=== PATIENT | male | born 1930 | race Caucasian/White ===

== ENCOUNTER 2016-04-10 07:56 | Inpatient (IN) | payer OTHER, MEDICARE ==
[2016-04-10] MEDS ORDERED: diphenhydrAMINE 25 MG CAP PO ONE ×2 (08:05→08:30)
[2016-04-10] MEDS ORDERED: DIAZEPAM 5 MG TAB PO ONE (08:05)
[2016-04-10] MEDS ORDERED: FAMOTIDINE 20 MG TAB PO ONE (08:05)
[2016-04-10] MEDS ORDERED: NS 1,000 ML IV ONE (08:05)
[2016-04-10] MEDS ORDERED: ASPIRIN EC 325 MG TAB PO ONE ×2 (08:05→08:30)
--- NOTE | 2016-04-10 08:28 | CPEKG ---
Heart Rate: 73 RR Interval: 822 P-R Interval: 200 QRSD Interval: 136 QT Interval: 420 QTC Interval: 463 P [place]: 112 QRS [place]: 116 T Wave Crawford: 244 EKG Severity - ABNORMAL ECG - EKG Impression: ATRIAL-SENSED VENTRICULAR-PACED RHYTHM Electronically Signed By: Arun Vazquez 11-Apr-2016 19:25:35
[2016-04-10] MEDS ORDERED: DIAZEPAM 5 MG TAB ONE (08:30)
[2016-04-10] MEDS ORDERED: FAMOTIDINE 20 MG TAB ONE (08:30)
[2016-04-10] MEDS ORDERED: CLOPIDOGREL BISULFATE 75 MG TAB ONE ×3 (08:31→11:52)
[2016-04-10 08:43] LABS: % IMMATURE GRANULYOCYTES 0.3 % (0.0-1.1); ABSOLUTE IMMATURE GRANULOCYTES 0.02 10^3/uL (0.00-0.10); ADD DIFF? NO; ADD MORPH? NO; ADD SCAN? NO; ATYPICAL LYMPHOCYTE FLAG 0 (0-99); FRAGMENT RBC FLAG 0 (0-99); HEMATOCRIT 46.8 % (40.0-51.0); HEMOGLOBIN 15.3 g/dL (13.7-17.5); LEFT SHIFT FLG 0 (0-99); LIPEMIA HEMOLYSIS FLAG 80 (0-99); MEAN CELL HEMOGLOBIN 28.4 pg (27.9-34.1); MEAN CELL HEMOGLOBIN CONCENTR. 32.7 g/dL (32.4-36.7); MEAN PLATELET VOLUME 11.6 fL (8.7-11.7); PLATELET CLUMPS FLAG 0 (0-99); PLATELET COUNT 203 10^3/uL (150-400); RED BLOOD CELL COUNT 5.38 10^6/uL (4.40-6.38); RED CELL DISTRIBUTION WIDTH 16.7 % (11.5-15.2)
[2016-04-10 08:53] LABS: INR 1.25 (0.83-1.16); PROTIME(PATIENT) 15.7 SEC (12.0-15.0)
[2016-04-10] MEDS ORDERED: IOPAMIDOL (ISOVUE-370) 150 ML BTL IV ONE ×2 (09:02→10:39)
[2016-04-10] MEDS ORDERED: HEPARIN 10,000 UNIT/10 ML MDV ONE ×2 (09:02→11:06)
[2016-04-10] MEDS ORDERED: VERAPAMIL 5 MG/2 ML VIAL ONE ×2 (09:02→10:39)
[2016-04-10] MEDS ORDERED: MIDAZOLAM 2 MG/2 ML VIAL ONE (09:02)
[2016-04-10] MEDS ORDERED: fentaNYL 100 MCG/2 ML INJ ONE (09:02)
[2016-04-10] MEDS ORDERED: LIDOCAINE 1% 30 ML SDV ONE (09:02)
[2016-04-10 09:15] LABS: ANION GAP 15 mEq/L (8-16); CALCIUM 9.3 mg/dL (8.5-10.4); CARBON DIOXIDE 25 mEq/l (22-31); CHLORIDE 102 mEq/L (97-110); CHOLESTEROL 126 mg/dL (140-220); CHOLESTEROL/HDL RATIO 3.82 RATIO (1.00-4.97); CREATININE 1.2 mg/dL (0.7-1.3); GLOMERULAR FILTRATION RATE 58; GLUCOSE 167 mg/dL (70-100); HIGH DENSITY LIPOPROTEIN 33 mg/dL (40-65); LDL/HDL RATIO 2.27 RATIO (1.00-3.64); LOW DENSITY LIPOPROTEIN 75 mg/dL (80-100); NON-HIGH DENSITY LIPOPROTEIN 93 mg/dL (90-129); POTASSIUM 4.1 mEq/L (3.5-5.2); SODIUM 142 mEq/L (134-144); TRIGLYCERIDE 94 mg/dL (40-150); VERY LOW DENSITY LIPOPROTEINS 18 mg/dL (8-25)
--- NOTE | 2016-04-10 09:44 | SUROPNOTE ---
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 Numerous medication adjustments and pacemaker reprogramming have been unsuccessful in alleviating symptoms. Echocardiogram 04/02/16 demonstrates new left ventricular dysfunction with LVEF 40-45% (previous 50-55%) and worsening pulmonary hypertension with estimated pulmonary artery pressure of 50-60mmHg (previous 30-40mmHg). Lexiscan nuclear stress test MPI shows a new small, moderate intensity inferolateral reversible defect. Right/left heart catheterization indicated secondary to [place] cardiovascular class III anginal equivalent and intermediate risk non- invasive testing. Procedures performed: 1. Right and Left heart catheterization with left ventricular and selective coronary angiography. 2. Fractional flow reserve, intravascular ultrasound imaging, and intracoronary stent placement x3 in the left anterior descending. Description of procedure: Description, risks, benefits and alternatives were discussed in detail. Informed consent was obtained. The patient was brought to the catheterization laboratory where a timeout was performed. The right arm was sterilely prepped and draped. 2% lidocaine utilized for local anesthetic. A 5-Welsh hemostatic sheath was placed in the right brachial artery utilizing the IV site already in place. A 5-Welsh PWP catheter was utilized for right heart catheterization. Following right heart catheterization, a 5/6-Welsh slender hemostatic sheath placed right radial artery utilizing micropuncture technique. Intraarterial verapamil and intravenous heparin was administered. Diagnostic coronary angiography performed with 6-Welsh, Leo left-3.5, AR1, and Leo right-4 catheter. The right coronary could not be engaged with the JR4 catheter, ultimately this was achieved with a 6-Welsh AR1 catheter. All catheters were passed over a 0.035 guidewire and J glidewire. Pigtail catheter was then utilized for left heart catheterization and left ventricular angiography. Query hemodynamically significant disease in the left anterior descending. Decision made to perform fractional flow reserve to assess hemodynamic significance. A 6-Welsh LBU-3.5 was utilized to engage the left coronary system. [facility] Nikhil FFR wire was advanced to just outside the guide catheter and pressures were equalized. FFR wire was placed in the left anterior descending. 140mcg*kg/min Adenosine IV was administered. FFR was 0.75. There are multiple sites of disease in the left anterior descending by angiography and it is unclear which of these (or multiple sites) are attributing to the hemodynamic significance. Therefore, intravascular ultrasound imaging will be utilized to further assess disease severity. Intracoronary nitroglycerin and verapamil was administered. Ultrasound catheter was placed in the left anterior descending and intravascular ultrasound imaging was performed. Plans were made for percutaneous intervention of the distal left anterior descending disease, which extends just distal to the previously stented segment. A 2.75mm x 28mm Synergy drug-eluding stent was chosen and carefully positioned to cover the distal vessel disease. This was deployed to 20 atmospheres for 30 seconds. Due to technical difficulty fractional flow reserve was unable to be repeated after this intervention. Instead, further intracoronary nitroglycerin and verapamil was administered and repeat intravascular ultrasound imaging was performed. Further plan was made for intervention on the mid and ostial left anterior descending disease. A 3.0mm x 28mm Synergy drug-eluding stent was chosen and carefully positioned in the mid left anterior descending. This was deployed to 18 atmospheres. Stent balloon was positioned slightly distally and inflated to 18 atmospheres. Next, a 3.5mm x 12mm Synergy drug-eluding stent was chosen and to cover the ostial left anterior descending lesion without extending the stent into the left main, however would not cross. FFR wire and guide catheter were removed. Instead, a 6-Welsh JL3.5 guide catheter was utilized and a Samurai wire was placed. The 3.5mm x 12mm Synergy drug-eluding stent was carefully positioned in the ostial left anterior descending and deployed to 14 atmospheres. Stent balloon was inflated to 18 atmospheres for 18 seconds. Repeat intravascular ultrasound imaging was performed, demonstrating excellent result. Ultrasound catheter and wire removed. Final orthogonal angiography was performed. Arterial sheath was removed and TR band was placed. Findings: 1. Hemodynamics: Right atrial pressure mean of 10. Right ventricular pressure 47/4/15 end-diastolic. Pulmonary artery pressure 48/23, mean of 33. Pulmonary capillary wedge pressure mean of 17 with no significant V wave. Aortic pressure 137/92, mean of 111, left ventricular pressure 150/15/26 end-diastolic. There was no significant pull back gradient across the aortic valve. 2. Saturations: Superior vena cava 80.8%, main pulmonary artery 71.9%, Ao 93.3 %. Assumed Renetta cardiac output 4.6 L/min with a cardiac index of 2.73 L/min/m2. 3. Left ventricle: The left ventricle appears normal in size. Left ventricle is normal shape. There is global hypokinesis and left ventricular dyssynchrony, suspect pacemaker mediated, with an ejection fraction of 30-35%. There are no filling defects or significant mitral regurgitation. The aortic root and ascending aorta appears normal, there is no dissection or aneurysm formation. 4. Coronary angiography: Left main: The left main is a large bifurcating vessel with mild calcified plaque. 5. Left anterior descending: This is a large vessel continuing around the apex. There is a large diagonal branch. Stents in the LAD and diagonal are patent with approximately 30% smooth in-stent stenosis. The ostial LAD has an eccentric 75% stenosis, confirmed by intravascular ultrasound. The mid-LAD contains a heavily calcified 70% lesion. The distal LAD has moderate to severe diffuse disease with a long area of 75-80% distal stenosis by ultrasound imaging. The diagonal branch has luminal irregularities but no flow limiting stenosis. Fractional flow reserve demonstrated hemodynamically significant LAD disease, with FFR of 0.75. Ultrasound imaging was performed after the FFR in order to better assess areas indicated for intervention. 6. Circumflex: The circumflex is large and dominant. The first obtuse marginal branch is vxvzgsot-wp-zsqgd and bifurcating; there is a small more anterior branch, which is subtotally occluded and a larger more lateral branch, which contains a previously placed stent. The stent in the first obtuse marginal branch is patent. Distal to the stent at the site of previous extensive dissection, there is evidence of persistent non-flow limiting dissection with potentially some distal vessel luminal narrowing from dissection or diffuse disease; however flow is normal. The second obtuse marginal branch is chronically totally occluded and fills from eieh-qy-nvbb collaterals. There is a large posterolateral and a moderate size posterior descending. The distal vessel has diffuse mild luminal irregularities involving the posterior descending. The main AV groove has mild luminal irregularities. 7. Right coronary: This is a moderate size non-dominant vessel. There is a large RV branch. The right coronary contains mild disease, but no flow-limiting stenosis. 8. Percutaneous intervention: Guided by intravascular ultrasound imaging and angiography, a total of three drug-eluding stents were placed in the ostial, mid , and distal left anterior descending. There was excellent result confirmed by repeat intravascular ultrasound imaging and angiography. Overall Impression: 1. Exxlldqy-th-khnwtz ostial, mid, and distal left anterior descending disease, which was hemodynamically significant by fraction flow reserve. This was treated with placement of three drug-eluding stents, with excellent result confirmed by intravascular ultrasound imaging. 2. Patent previously placed stent in the first obtuse marginal branch. 3. 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 4. Left ventricular dyssynchrony, suspicious for pacemaker mediated dyssynchrony, with reduced left ventricular systolic function, EF 30%. 5. Moderate pulmonary hypertension, with pulmonary artery systolic pressure of 48mmHg systolic. 6. BNP of 7040. 7. Class III systolic congestive heart failure. Plan: 1. Medical management of systolic congestive heart failure. Consider adding TIMUR /ARB and maximum heart failure management. If left ventricular systolic function and patient's symptoms do not improve, then consider upgrade to biventricular pacemaker to treat left ventricular dyssynchrony. 2. Aggressive risk modification and high dose statin therapy. 3. Close clinical follow up. Portions of this report were documented by a medical specialist. I have reviewed this report and agree with the documentation. Report scribed for Dr. Wellington Vallejo. Report scribed by Amie Mercedes.
[2016-04-10] MEDS ORDERED: ADENOSINE 90 MG/30 ML VIAL IV ONE (10:39)
[2016-04-10] MEDS ORDERED: NITROGLYCERIN 1,500 MCG/15 ML VIAL MISC ONE (10:39)
[2016-04-10] MEDS ORDERED: OXYCODONE/APAP 5/325 TAB PO PRN (12:33)
[2016-04-10] MEDS ORDERED: TEMAZEPAM 15 MG CAP PO PRN (12:33)
[2016-04-10] MEDS ORDERED: ATROPINE SULFATE 1 MG/10 ML SYR IVP PRN (12:33)
[2016-04-10] MEDS ORDERED: ONDANSETRON 4 MG/2 ML VIAL IVP PRN (12:33)
[2016-04-10] MEDS ORDERED: LORazepam 2 MG/ML INJ IVP PRN (12:33)
[2016-04-10] MEDS ORDERED: NITROGLYCERIN 0.4 MG BTL SL PRN (12:33)
[2016-04-10] MEDS ORDERED: HYDROCODONE/APAP 5/325 TAB PO PRN (12:33)
[2016-04-10] MEDS ORDERED: CLOPIDOGREL BISULFATE 75 MG TAB PO ONE (12:33)
--- NOTE | 2016-04-10 12:34 | CPEKG ---
Heart Rate: 66 RR Interval: 909 P-R Interval: 172 QRSD Interval: 150 QT Interval: 472 QTC Interval: 495 P [place]: 77 QRS [place]: 99 T Wave [place]: -65 EKG Severity - ABNORMAL ECG - EKG Impression: ATRIAL-SENSED VENTRICULAR-PACED COMPLEXES EKG Impression: PROBABLE LEFT ATRIAL ABNORMALITY EKG Impression: LEFT BUNDLE BRANCH BLOCK Electronically Signed By: Arun Vazquez 11-Apr-2016 19:25:30
[2016-04-10] MEDS ORDERED: D5W 1/2 NS 1,000 ML IV SCH (12:45)
[2016-04-10] MEDS ORDERED: 1/2 NS 1,000 ML IV SCH (13:30)
[2016-04-10] MEDS ORDERED: FUROSEMIDE 20 MG/2 ML VIAL IVP ONE (16:31)
[2016-04-10] MEDS ORDERED: NEBIVOLOL HCL 5 MG TAB PO ONE (17:00)
[2016-04-10] MEDS: LISINOPRIL 10 MG TAB PO SCH (18:58)
[2016-04-10] MEDS ORDERED: NON-FORMULARY NEW DRUG (Simvastatin [Zocor] 10 MG) PO SCH (21:00)
[2016-04-10] MEDS: PRAVASTATIN SODIUM 20 MG TAB PO SCH (21:16)
--- NOTE | 2016-04-10 21:19 | GCON ---
[f rep ] CONSULTATION [facility] MEDICINE CONSULTATION DATE OF CONSULTATION: 04/10/2016 HISTORY OF PRESENT ILLNESS: The patient is an 85-year-old gentleman with a history of coronary disea se with pacemaker placement and BPH, who underwent right and left heart catheterization with LAD sten t placement. In the CBC post-cath, he became agitated to get up, speaking in Greenlandic, trying to leav e, pulling at things. When I see him, it is a number of hours later and his behavior has largely resolved. In speaking wit h Praful Woodard, the PA for Dr. Vallejo, the patient has had difficulty with hospitalizations in the p ast. I suspect this is secondary to Benadryl and it probably reasonable to list this as a drug aller gy for him. When I speak with the patient, he says his right hand feels well. He has no chest pain. No shortnes s of breath. No fever, chills, nausea, vomiting, diarrhea. He does not drink alcohol. He does not smoke cigarettes. He lives independently with his who is present at the bedside who feels he is approaching his baseline. REVIEW OF SYSTEMS: A complete 10-point review of systems was conducted and negative, except as noted in the HPI. PAST MEDICAL HISTORY: 1. Pacemaker secondary to second-degree heart block. 2. Diabetes. 3. Coronary artery disease status post LAD stent today. 4. History of BPH. ALLERGIES: Previously listed as no known drug allergies. I would list Benadryl as an allergy for sondra corbin. MEDICATIONS: His home medications are aspirin, metformin, tamsulosin, spironolactone, simvastatin, n itroglycerin, multivitamin, furosemide, clopidogrel, and PreserVision. SOCIAL HISTORY: He is originally from [place]. He is retired. No tobacco, no alcohol. Lives with h is independently. FAMILY HISTORY: Parents . PHYSICAL EXAMINATION: VITAL SIGNS: His pulse was in the 60s, his blood pressure was 115/80, breathi ng 18 times a minute on a couple liters of oxygen. GENERAL: In no acute distress. HEENT: Sclerae are anicteric. Oropharynx is clear. Mucous membranes are moist. NECK: Supple without lymphadenopa thy or JVD. LUNGS: Clear to auscultation bilaterally. HEART: S1, S2. ABDOMEN: Soft, nontender, nondistended. EXTREMITIES: Lower extremities without edema. His right upper extremity has a pressu re dressing on it with no hematoma, although he had apparently had one after surgery. His fingers ar e cool, but with good cap refill. NEUROLOGIC: Exam is nonfocal. SKIN: Without rash. LABS: White count 7.3, hematocrit 47.8, platelets are 203,000. INR 1.25. D-dimer 1.21 (sent for unclear reasons). Sodium 142, potassium 4.1, chloride 102, bicarb 25, BUN 31, creatinine 1.2, glucose 167. Cholesterol 126, LDL 75. EKG interpreted by me post-cath shows a paced rhythm with a left bundle branch block pattern. No marleny dence of ischemia. I discussed the case with Praful Fontaine PA-C. ASSESSMENT AND PLAN: This is an 85-year-old gentleman with coronary disease status post catheterizat ion with post-catheterization delirium. 1. Delirium. This is almost certainly attributable to Benadryl. I would hold further. I have disc ontinued Ativan for which he is written. I think the patient will no longer become agitated, but dionna uld he become agitated, then the first line would be low doses of Haldol, such as 1 mg IV q.4. I have not written for this, but it can be called if this is necessary. I do not think this represents alc ohol withdrawal or intracranial hemorrhage, etc. No further workup at this time. 2. Coronary disease. He is on aspirin and Plavix. He underwent stent. 3. Diabetes. He is on metformin. I would recommend repeating a blood sugar in the morning. If carl vated, then we can start sliding scale. 4. Vascular access. As per Cardiology. DISPOSITION: Admitted to observation status I believe. Thank you for this consultation. [facility] will follow tomorrow. /[id number]/MODL
[2016-04-11 05:02] LABS: % IMMATURE GRANULYOCYTES 0.2 % (0.0-1.1); ABSOLUTE IMMATURE GRANULOCYTES 0.02 10^3/uL (0.00-0.10); ADD DIFF? NO; ADD MORPH? NO; ADD SCAN? NO; ATYPICAL LYMPHOCYTE FLAG 0 (0-99); FRAGMENT RBC FLAG 0 (0-99); HEMATOCRIT 42.7 % (40.0-51.0); HEMOGLOBIN 13.6 g/dL (13.7-17.5); LEFT SHIFT FLG 0 (0-99); LIPEMIA HEMOLYSIS FLAG 80 (0-99); MEAN CELL HEMOGLOBIN 28.3 pg (27.9-34.1); MEAN CELL HEMOGLOBIN CONCENTR. 31.9 g/dL (32.4-36.7); MEAN CELL VOLUME 88.8 fL (81.5-99.8); MEAN PLATELET VOLUME 11.6 fL (8.7-11.7); PLATELET CLUMPS FLAG 30 (0-99); PLATELET COUNT 168 10^3/uL (150-400); RED BLOOD CELL COUNT 4.81 10^6/uL (4.40-6.38); RED CELL DISTRIBUTION WIDTH 16.3 % (11.5-15.2)
[2016-04-11 05:16] LABS: ALBUMIN 3.3 g/dL (3.5-5.0); ANION GAP 11 mEq/L (8-16); ASPARTATE AMINOTRANSFERASE 31 IU/L (17-59); BILIRUBIN,TOTAL 1.3 mg/dL (0.1-1.4); CALCIUM 8.8 mg/dL (8.5-10.4); CARBON DIOXIDE 25 mEq/l (22-31); CHLORIDE 108 mEq/L (97-110); CREATININE 0.9 mg/dL (0.7-1.3); GLOMERULAR FILTRATION RATE > 60; GLUCOSE 116 mg/dL (70-100); LACTATE DEHYDROGENASE 499 IU/L (313-618); POTASSIUM 3.7 mEq/L (3.5-5.2); SODIUM 144 mEq/L (134-144)
--- NOTE | 2016-04-11 08:28 | CPEKG ---
Heart Rate: 93 RR Interval: 645 P-R Interval: 176 QRSD Interval: 136 QT Interval: 388 QTC Interval: 483 P [place]: 89 QRS [place]: 99 T Wave [place]: -90 EKG Severity - ABNORMAL ECG - EKG Impression: ATRIAL-SENSED ATRIAL PACED AND VENTRICULAR-PACED COMPLEXES EKG Impression: PROBABLE LEFT ATRIAL ABNORMALITY EKG Impression: BORDERLINE ST DEPRESSION, LATERAL LEADS Electronically Signed By: Arun Vazquez 11-Apr-2016 19:25:21
[2016-04-11] MEDS ORDERED: ASPIRIN EC 325 MG TAB PO SCH (09:00)
[2016-04-11] MEDS ORDERED: CLOPIDOGREL BISULFATE 75 MG TAB PO SCH (09:00)
[2016-04-11] MEDS ORDERED: FUROSEMIDE 20 MG TAB PO SCH (09:00)
--- NOTE | 2016-04-11 09:20 | SOAPPROG ---
ALLAN Progress Note Assessment/Plan: Assessment: Cardiology ([place]) 1. CAD s/p DESx3 in ostial, mid, and distal LAD this hospitalization. On DAPT with aspirin and Plavix. Received DESx1 in dominant Cx OM1 c/b stent edge dissection in December 2015, this vessel has normal flow. OM2 is chronically occluded and fills via L-L collaterals. Remote BMSs in LAD and diag patent. 2. New LV dysfunction w/ dysynchrony since last visit (acute systolic CHF, class III), LVEF 30-35% by LVgram, 40-45% by echocardiogram. ACEi added in addition to Bystolic and diuretic regimen. Suspicion for pacer-mediated cardiomyopathy. 3. Sick sinus syndrome with dual chamber PPM in place. Mostly a-v dual paced w/ rates in the 90s. 4. Post-procedural delirium thought to be 2/2 benadryl. Hospitalists are following. 5. New moderate pulmonary HTN. 6. Hypertension. 7. Hyperlipidemia. Plan: 1. Continue to watch throughout the day for improvement in mentation, ability to take medications. 2. Pacemaker interrogation today-->CLS gain turned to low. Atrial pacing rates are not reduced into the 70s-80 bpm. 3. Continue DAPT with aspirin and Plavix. Addendum 1648: Patient will remain inpatient due to mentation not yet back to baseline. He has been able to take all his medications but his oral intake continues to be poor. Will start normal saline IV at 75 ml/min overnight with continued diuresis. Subjective: A+O x 1. Unaware of place or time. Marginally conversational but continues to be quite sedated. Per hospitalist consult this did appear to improve briefly last night but then has gotten worse today. He was give restoril for sleep. Otherwise hemodynamically stable. Right wrist with mild-moderate hematoma. Not eating or drinking normally at this time. is in the room to aid with Wallisian interpretation. Objective: Vital Signs Temp Pulse Resp BP Pulse Ox 37 C 81 17 144/75 H 94 04/11/16 08:00 04/11/16 08:00 04/11/16 08:00 04/11/16 08:00 04/11/16 08:00 Laboratory Results 04/11/16 04:40 04/11/16 04:40 04/10/16 04/11/16 04/12/16 05:59 05:59 05:59 Intake Total 2450 Output Total 1060 Balance 1390 PT 15.7 SEC (12.0-15.0) H 04/10/16 08:30 INR 1.25 (0.83-1.16) H 04/10/16 08:30 Physical Exam - Physical Exam General Appearance: WD/WN, no apparent distress, obtunded Respiratory: chest non-tender, lungs clear, normal breath sounds Cardiac/Chest: normal peripheral pulses, regular rate, rhythm, No edema, No systolic murmur Peripheral Pulses: 2+: dorsalis-pedis (R), dorsalis-pedis (L) Abdomen: normal bowel sounds, non-tender, soft Neuro/Psych: abnormal director independent II-XII, motor weakness, cognition abnormalities, disoriented to place, disoriented to time, other (no focal deficit), No oriented x 3 ICD10 Worksheet Patient Problems: Problems Problem Status Diagnosed Coronary artery disease Acute Essential (primary) hypertension Acute Hyperlipidemia Acute Pacemaker Acute S/P coronary artery stent placement Acute
[2016-04-11] MEDS: SPIRONOLACTONE 25 MG TAB PO SCH (09:37)
[2016-04-11] MEDS: CLOPIDOGREL BISULFATE 75 MG TAB PO SCH (09:37)
[2016-04-11] MEDS: TAMSULOSIN HCL 0.4 MG CAP PO SCH (09:37)
[2016-04-11] MEDS: LISINOPRIL 10 MG TAB PO SCH (09:37)
[2016-04-11] MEDS: NEBIVOLOL HCL 5 MG TAB PO SCH (09:37)
--- NOTE | 2016-04-11 16:52 | HOSPPROG ---
Hospitalist Progress Note Assessment/Plan: # acute delirium- post PCI- clinically much improved at this afternoon- WBC count normal - agree hold sedating medications including Restoril - continue supportive care # coronary artery disease- status post PCI- oxygen saturations 98% on room air telemetry( personally reviewed and interpreted) paced rhythm - management per Cardiology # prophylaxis- Lovenox when cleared by Cardiology # diet cardiac # disposition I expect in the next 24 hours if remains stable I have discussed the case with the RN- patient is much improved this afternoon oriented interacting and eating normally Subjective: improved appetite Objective: Vital Signs Temp Pulse Resp BP Pulse Ox 36.4 C 73 24 H 132/84 H 94 04/11/16 13:56 04/11/16 13:56 04/11/16 13:56 04/11/16 13:56 04/11/16 13:56 Laboratory Results 04/11/16 04:40 04/11/16 04:40 04/10/16 04/11/16 04/12/16 05:59 05:59 05:59 Intake Total 2450 Output Total 1060 Balance 1390 PT 15.7 SEC (12.0-15.0) H 04/10/16 08:30 INR 1.25 (0.83-1.16) H 04/10/16 08:30 - Physical Exam Constitutional: appears nourished Eyes: anicteric sclera Ears, Nose, Mouth, Throat: moist mucous membranes Cardiovascular: regular rate and rhythym, systolic murmur Respiratory: no respiratory distress, no rales or rhonchi Gastrointestinal: normoactive bowel sounds, soft, non-tender abdomen Genitourinary: no bladder fullness Skin: warm, normal color Musculoskeletal: No asymmetric calves Neurologic: AAOx3, No facial droop Psychiatric: No agitated Lymph, Heme, Immunologic: no cervical LAD ICD10 Worksheet Patient Problems: Problems Problem Status Diagnosed Coronary artery disease Acute Essential (primary) hypertension Acute Hyperlipidemia Acute Pacemaker Acute S/P coronary artery stent placement Acute
[2016-04-11] MEDS ORDERED: NS 1,000 ML IV SCH (17:00)
[2016-04-11] MEDS: PRAVASTATIN SODIUM 20 MG TAB PO SCH (20:27)
[2016-04-12 08:28] LABS: % IMMATURE GRANULYOCYTES 0.3 % (0.0-1.1); ABSOLUTE IMMATURE GRANULOCYTES 0.02 10^3/uL (0.00-0.10); ADD DIFF? NO; ADD MORPH? NO; ADD SCAN? NO; ATYPICAL LYMPHOCYTE FLAG 0 (0-99); FRAGMENT RBC FLAG 0 (0-99); HEMATOCRIT 38.5 % (40.0-51.0); HEMOGLOBIN 12.8 g/dL (13.7-17.5); LEFT SHIFT FLG 0 (0-99); LIPEMIA HEMOLYSIS FLAG 80 (0-99); MEAN CELL HEMOGLOBIN 29.2 pg (27.9-34.1); MEAN CELL HEMOGLOBIN CONCENTR. 33.2 g/dL (32.4-36.7); MEAN CELL VOLUME 87.7 fL (81.5-99.8); MEAN PLATELET VOLUME 10.9 fL (8.7-11.7); PLATELET CLUMPS FLAG 0 (0-99); PLATELET COUNT 152 10^3/uL (150-400); RED BLOOD CELL COUNT 4.39 10^6/uL (4.40-6.38); RED CELL DISTRIBUTION WIDTH 16.2 % (11.5-15.2)
[2016-04-12 08:49] LABS: ANION GAP 9 mEq/L (8-16); CALCIUM 8.4 mg/dL (8.5-10.4); CARBON DIOXIDE 23 mEq/l (22-31); CHLORIDE 112 mEq/L (97-110); CREATININE 0.9 mg/dL (0.7-1.3); GLOMERULAR FILTRATION RATE > 60; GLUCOSE 103 mg/dL (70-100); POTASSIUM 3.8 mEq/L (3.5-5.2); SODIUM 144 mEq/L (134-144)
[2016-04-12] MEDS: LISINOPRIL 10 MG TAB PO SCH (09:17)
[2016-04-12] MEDS: SPIRONOLACTONE 25 MG TAB PO SCH (09:18)
[2016-04-12] MEDS: CLOPIDOGREL BISULFATE 75 MG TAB PO SCH (09:19)
[2016-04-12] MEDS: FUROSEMIDE 20 MG TAB PO SCH (09:19)
[2016-04-12] MEDS: TAMSULOSIN HCL 0.4 MG CAP PO SCH (09:19)
--- NOTE | 2016-04-12 10:20 | SOAPPROG ---
ALLAN Progress Note Assessment/Plan: Assessment: Cardiology ([place]) 1. CAD s/p DESx3 in ostial, mid, and distal LAD this hospitalization. On DAPT with aspirin and Plavix. Received DESx1 in dominant Cx OM1 c/b stent edge dissection in December 2015, this vessel has normal flow. OM2 is chronically occluded and fills via L-L collaterals. Remote BMSs in LAD and diag patent. 2. New LV dysfunction w/ dysynchrony since last visit (acute systolic CHF, class III), LVEF 30-35% by LVgram, 40-45% by echocardiogram. ACEi added in addition to Bystolic and diuretic regimen. Suspicion for pacer-mediated cardiomyopathy. 3. Sick sinus syndrome with dual chamber PPM in place. Mostly a-v dual paced w/ rates in the 90s. 4. Post-procedural delirium thought to be 2/2 benadryl. Hospitalists are following. 5. New moderate pulmonary HTN. 6. Hypertension. 7. Hyperlipidemia. Plan: 1. Continue to watch throughout the day for improvement in mentation, ability to take medications. 2. Pacemaker interrogation today-->CLS gain turned to low. Atrial pacing rates are not reduced into the 70s-80 bpm. 3. Continue DAPT with aspirin and Plavix. Addendum 1648: Patient will remain inpatient due to mentation not yet back to baseline. He has been able to take all his medications but his oral intake continues to be poor. Will start normal saline IV at 75 ml/min overnight with continued diuresis. 04/12/16 10:21 Patient appears to be oriented and cooperative today. He wants to leave the hospital. His is concerned over her ability to care for him he is able to ambulate with a walker. Patient is stable from cardiovascular standpoint and may be able to be discharged if it is deemed he is safe to go home. Otherwise, PT and social work may be required. Objective: Vital Signs Temp Pulse Resp BP Pulse Ox 97.3 F 76 14 115/69 96 04/12/16 08:21 04/12/16 08:21 04/12/16 08:21 04/12/16 08:21 04/12/16 08:21 Laboratory Results 04/12/16 08:19 04/12/16 08:19 04/11/16 04/12/16 04/13/16 05:59 05:59 05:59 Intake Total 2450 1050 Output Total 1060 300 Balance 1390 750 PT 15.7 SEC (12.0-15.0) H 04/10/16 08:30 INR 1.25 (0.83-1.16) H 04/10/16 08:30 ICD10 Worksheet Patient Problems: Problems Problem Status Diagnosed Coronary artery disease Acute Essential (primary) hypertension Acute Hyperlipidemia Acute Pacemaker Acute S/P coronary artery stent placement Acute
--- NOTE | 2016-04-12 12:47 | HOSPPROG ---
Hospitalist Progress Note Assessment/Plan: 85 yo M w cad admitted for LAD stents; hosp course c/b delirium acute delirium- post PCI- clinically much improved at this afternoon- WBC count normal - agree hold sedating medications including Restoril - continue supportive care morris: dc coronary artery disease- status post PCI- oxygen saturations 98% on room air telemetry( personally reviewed and interpreted) paced rhythm - management per Cardiology prophylaxis- Lovenox when cleared by Cardiology diet cardiac disposition inpatient per PT, borderline for home- await their repeat eval today Subjective: anxious for dc. case d/w dr porter. no events tele (interp by me) Objective: Vital Signs Temp Pulse Resp BP Pulse Ox 35.8 C L 85 20 120/72 94 04/12/16 11:52 04/12/16 11:52 04/12/16 11:52 04/12/16 11:52 04/12/16 11:52 Laboratory Results 04/12/16 08:19 04/12/16 08:19 04/11/16 04/12/16 04/13/16 05:59 05:59 05:59 Intake Total 2450 1050 Output Total 1060 300 Balance 1390 750 PT 15.7 SEC (12.0-15.0) H 04/10/16 08:30 INR 1.25 (0.83-1.16) H 04/10/16 08:30 - Physical Exam Constitutional: no apparent distress, appears nourished Eyes: PERRL, anicteric sclera Ears, Nose, Mouth, Throat: moist mucous membranes, hearing normal Cardiovascular: regular rate and rhythym, no murmur, rub, or gallop, No systolic murmur Respiratory: no respiratory distress, no rales or rhonchi, clear to auscultation Gastrointestinal: normoactive bowel sounds, soft, non-tender abdomen Genitourinary: no bladder fullness, morris in urethra Skin: warm, normal color Musculoskeletal: full muscle strength Neurologic: AAOx3 ICD10 Worksheet Patient Problems: Problems Problem Status Diagnosed Coronary artery disease Acute Essential (primary) hypertension Acute Hyperlipidemia Acute Pacemaker Acute S/P coronary artery stent placement Acute
[2016-04-12] MEDS: NEBIVOLOL HCL 5 MG TAB PO SCH ×2 (14:05→21:42)
[2016-04-12] MEDS: PRAVASTATIN SODIUM 20 MG TAB PO SCH (21:42)
--- NOTE | 2016-04-13 09:22 | HOSPPROG ---
Hospitalist Progress Note Assessment/Plan: 85 yo M w cad admitted for LAD stents; hosp course c/b delirium acute delirium- post PCI- clinically much improved at this afternoon- WBC count normal - agree hold sedating medications including Restoril - continue supportive care this has continued to improved, approaching baseline hypoxia: check ambulatory RA david ramosey: tyler coronary artery disease- status post PCI- oxygen saturations 98% on room air telemetry( personally reviewed and interpreted) paced rhythm - management per Cardiology prophylaxis- Lovenox when cleared by Cardiology diet cardiac disposition inpatient per PT, borderline for home- await their repeat eval today Subjective: more clear this AM. tele: no events (interp by me). case d/w dr porter Objective: Vital Signs Temp Pulse Resp BP Pulse Ox 36.4 C 77 16 144/106 H 98 04/13/16 08:00 04/13/16 08:00 04/13/16 08:00 04/13/16 08:00 04/13/16 08:00 Laboratory Results 04/12/16 08:19 04/12/16 08:19 04/12/16 04/13/16 04/14/16 05:59 05:59 05:59 Intake Total 1050 1135 Output Total 300 150 Balance 750 985 PT 15.7 SEC (12.0-15.0) H 04/10/16 08:30 INR 1.25 (0.83-1.16) H 04/10/16 08:30 - Physical Exam Constitutional: no apparent distress, appears nourished Eyes: PERRL, anicteric sclera Ears, Nose, Mouth, Throat: moist mucous membranes, hearing normal Cardiovascular: regular rate and rhythym, no murmur, rub, or gallop, No systolic murmur Respiratory: no respiratory distress, no rales or rhonchi, clear to auscultation Gastrointestinal: normoactive bowel sounds, soft, non-tender abdomen Genitourinary: No morris in urethra Skin: warm, normal color Musculoskeletal: full muscle strength, no muscle tenderness Neurologic: AAOx3 Psychiatric: interacting appropriately, not anxious Lymph, Heme, Immunologic: no cervical LAD ICD10 Worksheet Patient Problems: Problems Problem Status Diagnosed Coronary artery disease Acute Essential (primary) hypertension Acute Hyperlipidemia Acute Pacemaker Acute S/P coronary artery stent placement Acute
[2016-04-13] MEDS: LISINOPRIL 10 MG TAB PO SCH (09:28)
[2016-04-13] MEDS: FUROSEMIDE 20 MG TAB PO SCH (09:29)
[2016-04-13] MEDS: TAMSULOSIN HCL 0.4 MG CAP PO SCH (09:29)
[2016-04-13] MEDS: CLOPIDOGREL BISULFATE 75 MG TAB PO SCH (09:29)
[2016-04-13] MEDS: SPIRONOLACTONE 25 MG TAB PO SCH (09:29)
[2016-04-13] MEDS: NEBIVOLOL HCL 5 MG TAB PO SCH (19:52)
[2016-04-13] MEDS: PRAVASTATIN SODIUM 20 MG TAB PO SCH (19:52)
[2016-04-14 08:11] VITALS: TEMP 97.6; O2SAT 93
[2016-04-14] MEDS: FUROSEMIDE 20 MG TAB PO SCH (08:55)
[2016-04-14] MEDS: LISINOPRIL 10 MG TAB PO SCH (08:55)
[2016-04-14] MEDS: SPIRONOLACTONE 25 MG TAB PO SCH (08:55)
[2016-04-14] MEDS: TAMSULOSIN HCL 0.4 MG CAP PO SCH (08:56)
[2016-04-14] MEDS: CLOPIDOGREL BISULFATE 75 MG TAB PO SCH (08:56)
[2016-04-14 11:33] VITALS: BP 165/93; PULSE 88; RESP 18
[2016-04-14] MEDS ORDERED: ASPIRIN EC 81 MG TAB PO SCH (13:00)
--- NOTE | 2016-04-14 13:08 | HOSPPROG ---
Hospitalist Progress Note Assessment/Plan: 85 yo M w cad admitted for LAD stents; hosp course c/b delirium acute delirium- resolved hypoxia: check ambulatory RA david morris: tyler coronary artery disease- status post PCI- oxygen saturations 98% on room air telemetry( personally reviewed and interpreted) paced rhythm - management per Cardiology on asa/plavix prophylaxis- Lovenox when cleared by Cardiology diet cardiac disposition inpatient to snf Subjective: has bed at [facility] Objective: Vital Signs Temp Pulse Resp BP Pulse Ox 36.4 C 88 18 165/93 H 93 04/14/16 08:00 04/14/16 11:25 04/14/16 11:25 04/14/16 11:25 04/14/16 11:25 Laboratory Results 04/12/16 08:19 04/12/16 08:19 04/13/16 04/14/16 04/15/16 05:59 05:59 05:59 Intake Total 1135 800 Output Total 150 Balance 985 800 PT 15.7 SEC (12.0-15.0) H 04/10/16 08:30 INR 1.25 (0.83-1.16) H 04/10/16 08:30 - Physical Exam Constitutional: no apparent distress, appears nourished Eyes: PERRL, EOMI Ears, Nose, Mouth, Throat: moist mucous membranes, hearing normal Cardiovascular: regular rate and rhythym, no murmur, rub, or gallop Respiratory: no respiratory distress, no rales or rhonchi Gastrointestinal: normoactive bowel sounds, soft, non-tender abdomen Genitourinary: No morris in urethra Skin: warm, normal color ICD10 Worksheet Patient Problems: Problems Problem Status Diagnosed Coronary artery disease Acute Essential (primary) hypertension Acute Hyperlipidemia Acute Pacemaker Acute S/P coronary artery stent placement Acute
--- NOTE | 2016-04-14 13:14 | PDIAF ---
- Diagnosis Diagnosis: CAD,CHF, encephalopathy-improved,unsteady gait Code Status: Full Code - Medication Management Discharge Medications: Medications to Continue on Transfer Furosemide [Lasix 20 MG (*)] 20 mg PO DAILY 01/10/16 [Last Taken 04/09/16 08:00] Multivitamins [Multivitamin (*)] 1 each PO DAILY 01/10/16 [Last Taken 04/08/16 08:00] Simvastatin [Zocor] 10 mg PO HS 01/10/16 [Last Taken 04/09/16 21:00] Spironolactone [Aldactone 25 MG (*)] 25 mg PO DAILY 01/10/16 [Last Taken 08:00] Tamsulosin HCl [Flomax 0.4 MG (*)] 0.4 mg PO DAILY 01/10/16 [Last Taken 21:00] metFORMIN HCL [Glucophage 500 mg (*)] 250 mg PO BIDMEAL 01/10/16 [Last Taken 19:00] Nitroglycerin [Nitrostat 0.4 mg (*)] 0.4 mg SL ONCE PRN #0 btl 01/11/16 [Last Taken Unknown] Clopidogrel Bisulfate [Plavix (*)] 75 mg PO DAILY #30 tab 01/12/16 [Last Taken 04/09/16 19:00] Aspirin EC [Aspirin EC 325 mg (*)] 162 mg PO DAILY 04/10/16 [Last Taken 19:00] Nebivolol HCl [Bystolic 5 mg (*)] 2.5 mg PO DAILY 04/10/16 [Last Taken 04/09/16 21:00] Clopidogrel Bisulfate [Plavix (*)] 75 mg PO DAILY #0 tab 04/14/16 [Last Taken Unknown] Furosemide [Lasix 20 MG (*)] 60 mg PO DAILY #0 tab 04/14/16 [Last Taken Unknown] Lisinopril [Zestril 10 mg (*)] 10 mg PO DAILY #0 tab 04/14/16 [Last Taken Unknown] Nebivolol HCl [Bystolic 5 mg (*)] 2.5 mg PO HS #0 tab 04/14/16 [Last Taken Unknown] Spironolactone [Aldactone 25 MG (*)] 25 mg PO DAILY #0 tab 04/14/16 [Last Taken Unknown] Tamsulosin HCl [Flomax 0.4 MG (*)] 0.4 mg PO DAILY #0 cap 04/14/16 [Last Taken Unknown] Discharge Medications: Refer to the Discharge Home Medication list for PRN reason. PICC Care - Routine: N/A - Orders Services needed: Registered Nurse, Physical Therapy, Occupational Therapy Diet Recommendation: cardiac -low fat low salt Diet Texture: Regular Texture Diet, Thin Liquids Activity/Weight Bearing Restrictions: Walker - Follow Up Care Current Providers and Referrals: MELISSA COELHO [Primary Care Provider] - Wellington Vallejo MD [Medical Doctor] - 3-5 days (Have pt f/u with Keith TIJERINA in my office next week. )
--- NOTE | 2016-04-14 14:31 | GDS ---
[f rep st] DISCHARGE SUMMARY DIAGNOSES: 1. Progressive angina. 2. Congestive heart failure. 3. Cardiomyopathy. 4. History of high-degree atrioventricular block with pacemaker dependence. 5. Coronary artery disease. 6. Acute encephalopathy/delirium. 7. Unsteady gait. 8. Diabetes. 9. Benign prostatic hypertrophy. 10. Failure to thrive. PROCEDURES: 1. Right and left heart catheterization with left ventricular and selective coronary angiography. 2. Fractional flow reserve measurement, intravascular ultrasound imaging and intracoronary stent jose cement x3 in left anterior descending coronary artery. CONSULTANTS: Drs. Jose Zamorano and Polly Turner from the hospitalist service. HOSPITAL COURSE: This 85-year-old man with above problems [facility] He had presented in December with symptomatic coronary ischemia and underwent catheterization and intervention at that time. He had a stent edge dissection in his obtuse marginal stent treated w ith balloon angioplasty with restored flow and only very minimal rise in cardiac enzymes. He also wa s found to have a chronic occlusion of the more distal obtuse marginal branch, as well as diffuse oth er coronary disease. Unfortunately, despite very close outpatient followup and multiple changes in h is treatment, including pacemaker reprogramming and medication adjustment, patient continued to have progressive symptoms of worsening dyspnea and angina. Therefore, after discussing options, it was de cided that he would undergo repeat catheterization. This was performed on the day of admission. Thi s revealed that the 1st obtuse marginal stent was open. There was what appeared to be a healing dist al dissection with some non-flow limiting dissection with NATALY-3 flow. HEMODYNAMICS: Demonstrated a pulmonary artery systolic pressure of 48 mmHg with a mean pulmonary cap illary wedge pressure of 17 and right atrial pressure of 10. Cardiac index was 2.7 L/min per m2. T he left ventricle, surprisingly, demonstrated global hypokinesis with dyssynchrony as well, likely re lated to his pacemaker with an ejection fraction diminished from previous, now in the 30-35% range. There appeared to be progressive LAD disease on this angiogram of unclear significance. Therefore, f ractional flow reserve measurement was performed with intravenous adenosine demonstrating an FFR of 0 .75, suggesting hemodynamic significance. As the patient did have multiple lesions within the LAD, u ltrasound imaging was performed in order to decide on best areas of intervention. Ultimately, 3 sepa rate drug-eluting stents were placed in the LAD including a 2.75 mm x 28 mm Synergy stent in the dist al vessel. At this point, I was hoping to repeat fractional flow reserve measurement to determine wh ether further stenting was needed; however, there were multiple technical difficulties with the FFR a nd we were unable to adequately repeat assessment with FFR. Therefore, guidance at this point was pe rformed utilizing ultrasound imaging, as well as consultation with other cardiologists. The mid lesi on was covered with a 3.0 x 28 mm Synergy stent in the ostial/proximal lesion with a 3.5 x 12 mm Syne rgy stent. This led to excellent result throughout by ultrasound imaging. There were no complications specifically related to the catheterization procedure intervention; howev er, as had occurred previously, the patient developed acute delirium/encephalopathy, likely related t o the sedation and required ICU admission for recovery. This took at least 48 hours to nearly comple tely clear. Subsequently, patient was assessed by Physical Therapy who felt that he was unsafe for a mbulation at home, and after a great deal of discussion with the patient and his , the patient co nsented to a short course in the halfway facility. Therefore, on the day of discharge, he wa s discharged to [facility] for rehabilitation with physical, occupational therapy, and nursing care. Another finding was the degree of ventricular pacing at a high rate. His pacemaker was again reprogr ammed in an attempt to deal with this. Of note, the patient has had a steadily climbing brain natriu retic peptide from normal in 2010, then 1900 in March of 2014, with a steady climb to 53,000 in Jan, and 7000 approximately 2 weeks ago. DISCHARGE MEDICATIONS: Aspirin 162 mg daily, Plavix 75 mg daily, simvastatin 10 mg q.h.s., Bystolic 5 mg daily, lisinopril which is a new medicine; 10 mg daily, spironolactone 25 mg daily, furosemide 6 0 mg daily, tamsulosin 0.4 mg daily, metformin 250 mg b.i.d. FOLLOWUP PLANS: The patient should be seen in the office, hopefully within 1 week to 10 days. At th at point, chem-7, BNP testing should be performed. We should follow his ventricular function by echo cardiography. Depending on his recovery, he could be considered a candidate for upgrade of his pacem antonio to a biventricular device. If he continues to feel so poorly with heart failure, I certainly wo uld be willing to consider this, if that is what the patient and his family request. If we do this, I would like to perform this with general anesthesia/propofol in an attempt to limit postoperative de lirium/encephalopathy. /[id number]/MODL
== END 2016-04-14 14:44 | DRG 247 ==
LOC: FCATH 07:56 → F2W 11:54 → F2N 15:03 → F2W 04-11 13:54 → OBSVTOIN 04-11 16:48
PROVIDERS: ADMIT Internal Medicine Interventional Cardiology; ATTEND Internal Medicine Interventional Cardiology
PROC: 4A023N8 Measurement of Cardiac Sampling and Pressure, Bilateral, Percutaneous Approach (ICD-10-PCS; principal; 2016-04-10)
PROC: B2161ZZ Fluoroscopy of Right and Left Heart using Low Osmolar Contrast (ICD-10-PCS; principal; 2016-04-10)
PROC: B2111ZZ Fluoroscopy of Multiple Coronary Arteries using Low Osmolar Contrast (ICD-10-PCS; principal; 2016-04-10)
PROC: 027036Z Dilation of Coronary Artery, One Artery with Three Drug-eluting Intraluminal Devices, Percutaneous Approach (ICD-10-PCS; principal; 2016-04-10)
DX: I25.10 Atherosclerotic heart disease of native coronary artery without angina pectoris (principal); F05 Delirium due to known physiological condition; I50.20 Unspecified systolic (congestive) heart failure; I42.9 Cardiomyopathy, unspecified; I27.2 Other secondary pulmonary hypertension; E11.9 Type 2 diabetes mellitus without complications; N40.0 Benign prostatic hyperplasia without lower urinary tract symptoms; R26.9 Unspecified abnormalities of gait and mobility; R62.7 Adult failure to thrive; Z95.0 Presence of cardiac pacemaker
CPT/HCPCS: 97116-GP; 97161-GP; 97530-GP; C1753; C1769; C1874; C1887; C9600; G8978-GP-CK; G8979-GP-CI; G8980-GP-CJ; J0153; J1644; J2250; J3010; Q9967

== ENCOUNTER 2016-05-12 16:05 | Observation (INO) | payer OTHER, MEDICARE ==
--- NOTE | 2016-05-12 16:22 | EDPHY ---
H & P Time Seen by Provider: 05/12/16 16:09 HPI/ROS: CHIEF COMPLAINT: Altered mental status HISTORY OF PRESENT ILLNESS: The patient is an 85-year-old male who who presents emergency department via EMS. The patient is Prydeinig-speaking only. My initial interaction with the patient was limited. EMS states that the patient recently was in the hospital for a heart attack. His was concerned he had increasing mental status changes today. Through the Prydeinig strawhat inspector and packer the patient has no complaints. REVIEW OF SYSTEMS: My complete review of systems is negative except as mentioned in the HPI. Past Medical/Surgical History: Includes progressive angina, CHF, cardiomyopathy, high degree AV block, coronary artery disease, acute encephalopathy/delirium, diabetes, BPH, failure to thrive of the Past surgical history: Includes stent placement Social history: The patient is from [place]. He does not smoke or drink alcohol. Family history: Parents are Smoking Status: Never smoked Physical Exam: Vitals noted GENERAL: Well-appearing, in no acute distress, alert. HEENT: Eyes normal to inspection, normal pharynx, no signs of dehydration. NECK: No thyromegaly, no lymphadenopathy, supple. RESPIRATORY: Clear to auscultation bilaterally, no rales, rhonchi or wheezing. CVS: Regular rate and rhythm, no rubs, murmurs, or gallops. ABDOMEN: Soft, nontender, nondistended, no organomegaly. BACK: Normal to inspection, no CVA tenderness. SKIN: Normal color, no rash, warm, dry. No pallor. EXTREMITIES: No pedal edema, no calf tenderness, no Homans sign or cords, no joint swelling. NEURO/PSYCH: Alert and oriented, normal mood and affect, normal motor sensory exam. No obvious cranial nerve deficit. Constitutional: Initial Vital Signs Temperature (C) 36.0 C 05/12/16 16:11 Heart Rate 87 05/12/16 16:11 Respiratory Rate 16 05/12/16 16:11 Blood Pressure 147/105 H 05/12/16 16:11 O2 Sat (%) 94 05/12/16 16:11 O2 Delivery Mode Room Air Allergies/Adverse Reactions: No Known Allergies Allergy (Unverified 01/10/16 14:43) Home Medications: Medication Instructions Recorded Furosemide [Lasix 20 MG (*)] 20 mg PO DAILY 01/10/16 Multivitamins [Multivitamin (*)] 1 each PO DAILY 01/10/16 Simvastatin [Zocor] 10 mg PO HS 01/10/16 Spironolactone [Aldactone 25 MG 12.5 mg PO DAILY 01/10/16 (*)] metFORMIN HCL [Glucophage 500 mg 250 mg PO BIDMEAL 01/10/16 (*)] Nitroglycerin [Nitrostat 0.4 mg 0.4 mg SL ONCE PRN #0 btl 01/11/16 (*)] Clopidogrel Bisulfate [Plavix (*)] 75 mg PO DAILY #30 tab 01/12/16 Aspirin EC [Aspirin EC 325 mg (*)] 162.5 mg PO DAILY 04/10/16 Nebivolol HCl [Bystolic 5 mg (*)] 2.5 mg PO DAILY 04/10/16 C/E/Zn/Cu/OM3/DHA/EPA/LUT/ZEAX 1 each PO DAILY 05/12/16 [Preservision Areds 2 Softgel] Herbals/Supplements -Info Only 1 ea PO DAILY 05/12/16 Levothyroxine [Synthroid 50 mcg 50 mcg PO DAILY06 05/12/16 (*)] Lisinopril [Zestril 5 mg (*)] 5 mg PO DAILY 05/12/16 Medical Decision Making - Diagnostics EKG Interpretation: Atrial sensed, ventricular paced complexes 82. ED Course/Re-evaluation: In the emergency department I met EMS on arrival. I took report from the custodian manager. A Prydeinig strawhat inspector and packer was obtained on the phone. The patient's was not present. The patient states I feel good. He has no complaints. No chest pain or shortness of breath. Of note, on evaluation with the strawhat inspector and packer the patient is not oriented times date or president. He is aware that he has a [facility]. 1720: We were able to get hold the patient's . She spoke minimal Greenlandic on the phone. She states she will be in the emergency department 20 minutes. I discussed the plan with the patient and his . I answered all his questions. The patient's states that the patient was normal this morning. He took a nap until 2:00 p.m.. When he woke he had significant fatigue. He could not stand up from the chair. Normally can walk up and down stairs. She also states that this is similar symptoms to when he had his previous WA. Patient also has had some slowing of his speech. This is been going on for the last couple of days but is worse today. She is not sure of the onset of the symptoms. I discussed the case with Dr. Jarad Zamorano. He will admit the patient. The patient is aware the plan. Differential Diagnosis: My differential includes but is not limited to ACS, acute WA, cardiomyopathy, arrhythmia, heart block, electrolyte abnormality, sugar abnormality - Data Points Laboratory Results: Laboratory Results 05/12/16 18:00 05/12/16 18:00 05/12/16 05/12/16 05/12/16 18:00 18:00 18:00 WBC 7.05 10^3/uL 10^3/uL (3.80-9.50) RBC 4.88 10^6/uL 10^6/uL (4.40-6.38) Hgb 13.8 g/dL g/dL (13.7-17.5) Hct 42.0 % % (40.0-51.0) MCV 86.1 fL fL (81.5-99.8) MCH 28.3 pg pg (27.9-34.1) MCHC 32.9 g/dL g/dL (32.4-36.7) RDW 14.9 % % (11.5-15.2) Plt Count 165 10^3/uL 10^3/uL (150-400) MPV 10.9 fL fL (8.7-11.7) Neut % (Auto) 59.7 % % (39.3-74.2) Lymph % (Auto) 27.2 % % (15.0-45.0) Dent % (Auto) 9.1 % % (4.5-13.0) Eos % (Auto) 3.3 % % (0.6-7.6) Baso % (Auto) 0.6 % % (0.3-1.7) Nucleat RBC Rel Count 0.0 % % (0.0-0.2) Absolute Neuts (auto) 4.21 10^3/uL 10^3/uL (1.70-6.50) Absolute Lymphs (auto) 1.92 10^3/uL 10^3/uL (1.00-3.00) Absolute Monos (auto) 0.64 10^3/uL 10^3/uL (0.30-0.80) Absolute Eos (auto) 0.23 10^3/uL 10^3/uL (0.03-0.40) Absolute Basos (auto) 0.04 10^3/uL 10^3/uL (0.02-0.10) Absolute Nucleated RBC 0.00 10^3/uL 10^3/uL (0-0.01) Immature Gran % 0.1 % % (0.0-1.1) Immature Gran # 0.01 10^3/uL 10^3/uL (0.00-0.10) PT 15.2 SEC H SEC (12.0-15.0) INR 1.20 H (0.83-1.16) APTT 30.5 SEC SEC (23.0-38.0) Sodium 138 mEq/L mEq/L (134-144) Potassium 4.6 mEq/L mEq/L (3.5-5.2) Chloride 104 mEq/L mEq/L (97-110) Carbon Dioxide 24 mEq/l mEq/l (22-31) Anion Gap 10 mEq/L mEq/L (8-16) BUN 31 mg/dL H mg/dL (7-23) Creatinine 1.1 mg/dL mg/dL (0.7-1.3) Estimated GFR > 60 Glucose 117 mg/dL H mg/dL (70-100) Calcium 9.4 mg/dL mg/dL (8.5-10.4) Troponin I 0.121 ng/mL H ng/mL (0-0.034) Medications Given: Discontinued Medications Aspirin (Aspirin) 324 mg PO EDNOW ONE Stop: 05/12/16 17:07 Last Admin: 05/12/16 17:44 Dose: 324 mg Sodium Chloride (Ns) 500 mls @ 0 mls/hr IV ONCE ONE PRN Reason: As Directed Stop: 05/12/16 17:07 Last Admin: 05/12/16 17:45 Dose: 500 mls Departure - Departure Disposition: [facility] Inpatient Acute Clinical Impression: Weakness Condition: Good
[2016-05-12] MEDS ORDERED: NS 500 ML IV ONE (17:06)
[2016-05-12] MEDS ORDERED: ASPIRIN 81 MG CHEWABLE TAB PO ONE (17:06)
[2016-05-12 18:12] LABS: % IMMATURE GRANULYOCYTES 0.1 % (0.0-1.1); ABSOLUTE IMMATURE GRANULOCYTES 0.01 10^3/uL (0.00-0.10); ADD DIFF? NO; ADD MORPH? NO; ADD SCAN? NO; ATYPICAL LYMPHOCYTE FLAG 10 (0-99); FRAGMENT RBC FLAG 0 (0-99); HEMOGLOBIN 13.8 g/dL (13.7-17.5); LEFT SHIFT FLG 0 (0-99); LIPEMIA HEMOLYSIS FLAG 80 (0-99); MEAN CELL HEMOGLOBIN 28.3 pg (27.9-34.1); MEAN CELL HEMOGLOBIN CONCENTR. 32.9 g/dL (32.4-36.7); MEAN CELL VOLUME 86.1 fL (81.5-99.8); MEAN PLATELET VOLUME 10.9 fL (8.7-11.7); PLATELET CLUMPS FLAG 0 (0-99); PLATELET COUNT 165 10^3/uL (150-400); RED BLOOD CELL COUNT 4.88 10^6/uL (4.40-6.38); RED CELL DISTRIBUTION WIDTH 14.9 % (11.5-15.2)
[2016-05-12 18:25] LABS: ANION GAP 10 mEq/L (8-16); CALCIUM 9.4 mg/dL (8.5-10.4); CARBON DIOXIDE 24 mEq/l (22-31); CHLORIDE 104 mEq/L (97-110); CREATININE 1.1 mg/dL (0.7-1.3); GLOMERULAR FILTRATION RATE > 60; GLUCOSE 117 mg/dL (70-100); POTASSIUM 4.6 mEq/L (3.5-5.2); SODIUM 138 mEq/L (134-144)
[2016-05-12 18:28] LABS: INR 1.2 (0.83-1.16); PROTIME(PATIENT) 15.2 SEC (12.0-15.0)
[2016-05-12 18:29] LABS: APTT 30.5 SEC (23.0-38.0)
[2016-05-12 18:36] LABS: TROPONIN I 0.121 ng/mL (0-0.034)
--- NOTE | 2016-05-12 19:32 | CPEKG ---
Heart Rate: 82 RR Interval: 732 P-R Interval: 164 QRSD Interval: 134 QT Interval: 380 QTC Interval: 444 P [place]: 108 QRS [place]: 96 T Wave [place]: 263 EKG Severity - ABNORMAL ECG - EKG Impression: ATRIAL-SENSED VENTRICULAR-PACED COMPLEXES EKG Impression: NONSPECIFIC INTRAVENTRICULAR CONDUCTION DELAY EKG Impression: MINIMAL ST DEPRESSION, LATERAL LEADS Electronically Signed By: Apple More 12-May-2016 22:25:36
[2016-05-12] MEDS ORDERED: ACETAMINOPHEN 325 MG TAB PO PRN (19:51)
[2016-05-12] MEDS ORDERED: ONDANSETRON 4 MG/2 ML VIAL IVP PRN (19:51)
[2016-05-12] MEDS ORDERED: ONDANSETRON DISINTEGRATING 4 MG TAB PO PRN (19:51)
[2016-05-12] MEDS ORDERED: NITROGLYCERIN 0.4 MG BTL SL PRN (19:54)
[2016-05-12] MEDS ORDERED: NS 1,000 ML IV SCH (20:15)
--- NOTE | 2016-05-12 20:32 | GHP ---
DATE OF ADMISSION: 05/12/2016 HISTORY OF PRESENT ILLNESS: The patient is an 85-year-old gentleman with a history of coronary rico ry disease, recent stents, as well as delirium during his last hospitalization, who presents with a transient episode of confusion. It sounds like he was at home. He was normal this morning and then following that, he had some confusion. He was speaking irregularly. There may have been some dysa rthria. There was no facial droop. There was no focal numbness or weakness. There was no laterali ty to his symptoms. He was recently admitted here, and I do not recall if he had a Leblanc catheter. He did receive Benad ryl, and he became quite confused. There were no recent fever, chills. He does not drink alcohol. He has not taken any qbim-sik-flkyk er medicines. REVIEW OF SYSTEMS: Complete 10-point review of systems conducted and negative except as noted in th e HPI. PAST MEDICAL HISTORY: 1. Coronary artery disease with LAD stent in March. 2. Pacemaker secondary to second degree heart block. 3. Diabetes. 4. History of BPH. ALLERGIES: Benadryl. HOME MEDICATIONS: Aspirin, PreserVision, spironolactone, simvastatin, nitroglycerin, nebivolol, lev othyroxine, metformin, multivitamin, furosemide, clopidogrel, lisinopril. SOCIAL HISTORY: Lives with his . He is from [place]. He is Martiniquais-speaking only. No alcohol, no tobacco. FAMILY HISTORY: Parents . PHYSICAL EXAMINATION: VITAL SIGNS: Temp 36.5, blood pressure 147/105, pulse 87, breathing 16 times a minute, 94% on room air. GENERAL: In no acute distress. HEENT: Sclerae anicteric. Oropharynx clear. Mucous membranes moist. NECK: Supple without lymphadenopathy or JVD. LUNGS: Clear to au scultation bilaterally. HEART: S1, S2. ABDOMEN: Soft, nontender, nondistended. LOWER EXTREMITIE S: Without edema. Calves nontender. SKIN: Without rash. NEUROLOGIC: Cranial nerves 2-12 are in tact. Upper extremity strength is 5/5 bilaterally as best I can tell with his incomplete tolerance compliance with testing. Lower extremities: Moving all extremities. Sensation appears intact bila terally. LABS: White count 7, hematocrit 42. Platelets are 165,000. INR is 1.2. Sodium 138, potassium 4.6 , chloride 104, bicarb 24, BUN 31, creatinine 1.1. These are slightly greater than his baseline. T roponin is 0.121. This is the lowest value he has had in our computer system in quite some time. TEST DATA: Chest x-ray interpreted by me shows no acute cardiopulmonary disease other than possible mild congestive heart failure. Head CT shows evidence of moderate diffuse atrophy, old lacunar inf arcts. No acute hemorrhage, atherosclerosis. EKG pending. I discussed the case with Dr. Apple burrows. His EKG is a paced rhythm at 82. ASSESSMENT/PLAN: This is an 85-year-old gentleman with a history of dementia and encephalopathy pre sents with episode of confusion. 1. Confusion. I do not think this represents a neurovascular event or transient ischemic attack. It is too global. He certainly has risk factors for that. Based on the time of presentation, he is not a candidate for lytics at all. For the time being, I will await his urinalysis. Continue his home medicines and follow. 2. Coronary artery disease. Continue his medicines. 3. Heart failure. The patient is actually clinically a bit dry. I will give him some normal salin e and follow up. 4. Prophylaxis. Pharmacologic prophylaxis indicated and started. 5. Code status. Full. DISPOSITION: Observation. Admit tele. /[id number]/MODL
[2016-05-12] MEDS ORDERED: PRAVASTATIN SODIUM 20 MG TAB PO SCH (21:00)
[2016-05-12] MEDS ORDERED: HALOPERIDOL LACT 5 MG/ML INJ IVP PRN (21:42)
[2016-05-13 00:55] LABS: COLOR YELLOW; LEUKOCYTE ESTERASE,URINE NEGATIVE (NEGATIVE); NITRITE,URINE NEGATIVE (NEGATIVE)
[2016-05-13 01:14] LABS: HYALINE CASTS 50-182 /lpf (0-1); MUCUS TRACE /lpf (NONE-1+)
[2016-05-13 05:48] LABS: % IMMATURE GRANULYOCYTES 0.3 % (0.0-1.1); ABSOLUTE IMMATURE GRANULOCYTES 0.02 10^3/uL (0.00-0.10); ADD DIFF? NO; ADD MORPH? NO; ADD SCAN? NO; ATYPICAL LYMPHOCYTE FLAG 0 (0-99); FRAGMENT RBC FLAG 0 (0-99); HEMATOCRIT 35.6 % (40.0-51.0); HEMOGLOBIN 11.8 g/dL (13.7-17.5); LEFT SHIFT FLG 0 (0-99); LIPEMIA HEMOLYSIS FLAG 80 (0-99); MEAN CELL HEMOGLOBIN 28.9 pg (27.9-34.1); MEAN CELL HEMOGLOBIN CONCENTR. 33.1 g/dL (32.4-36.7); MEAN CELL VOLUME 87.3 fL (81.5-99.8); MEAN PLATELET VOLUME 10.8 fL (8.7-11.7); PLATELET CLUMPS FLAG 0 (0-99); PLATELET COUNT 132 10^3/uL (150-400); RED BLOOD CELL COUNT 4.08 10^6/uL (4.40-6.38); RED CELL DISTRIBUTION WIDTH 14.8 % (11.5-15.2)
[2016-05-13 05:54] LABS: INR 1.28 (0.83-1.16)
[2016-05-13 05:55] LABS: APTT 33.1 SEC (23.0-38.0)
[2016-05-13] MEDS ORDERED: LEVOTHYROXINE 50 MCG TAB PO SCH (06:00)
[2016-05-13 06:10] LABS: ANION GAP 10 mEq/L (8-16); CALCIUM 8.8 mg/dL (8.5-10.4); CARBON DIOXIDE 22 mEq/l (22-31); CHLORIDE 110 mEq/L (97-110); GLOMERULAR FILTRATION RATE > 60; GLUCOSE 98 mg/dL (70-100); POTASSIUM 4.3 mEq/L (3.5-5.2); SODIUM 142 mEq/L (134-144)
[2016-05-13 06:21] LABS: TROPONIN I 0.156 ng/mL (0-0.034)
[2016-05-13] MEDS: CLOPIDOGREL BISULFATE 75 MG TAB PO SCH (07:59)
[2016-05-13] MEDS ORDERED: metFORMIN HCL 500 MG TAB PO SCH (08:00)
[2016-05-13] MEDS ORDERED: LISINOPRIL 5 MG TAB PO SCH (09:00)
[2016-05-13] MEDS ORDERED: PRESERVISION AREDS2 FORMULA EYE VIT 1 EACH PO SCH (09:00)
[2016-05-13] MEDS ORDERED: NEBIVOLOL HCL 5 MG TAB PO SCH (09:00)
[2016-05-13] MEDS ORDERED: FUROSEMIDE 20 MG TAB PO SCH (09:00)
[2016-05-13] MEDS ORDERED: ASPIRIN 325 MG TAB PO SCH (09:00)
[2016-05-13] MEDS ORDERED: Herbals/Supplements -Info Only PO SCH (09:00)
[2016-05-13] MEDS ORDERED: SPIRONOLACTONE 25 MG TAB PO SCH (09:00)
[2016-05-13] MEDS ORDERED: ENOXAPARIN 40 MG/0.4 ML SYR SC SCH (09:00)
[2016-05-13] MEDS ORDERED: ASPIRIN EC 325 MG TAB PO SCH (09:00)
[2016-05-13] MEDS ORDERED: MULTIVITAMINS 1 EACH TAB PO SCH (09:00)
--- NOTE | 2016-05-13 10:38 | GCON ---
CARDIOLOGY CONSULTATION DATE OF CONSULTATION: 05/13/2016 REFERRING PHYSICIAN: Bharath Newberry DO INDICATION FOR CONSULT: Mildly elevated troponin, history of coronary artery disease with recent PC I to the LAD x3 in March 2016. HISTORY OF PRESENT ILLNESS: The patient is a pleasant 85-year-old gentleman well known to my cardio logy practice at [facility] who presented yesterday to [facility] Department after developing acute onset of confusion and difficulties with speech. His rep orts that he was in his usual state of health until around noon yesterday when he began slurring his speech and was confused and could not respond appropriately to questions. She also noted that he b ecame profoundly weak and was unable to stand up. The patient denies any complaint of acute onset o f chest pain, chest pressure, or shortness of breath at the time of these symptoms. He denied any a ssociated palpitations, dizziness. These symptoms gradually progressed prompting him to seek consul tation at [facility] for further evaluation. There is no evidence of focal neurologic deficits. The patient has recently undergone percutaneous coronary intervention x3 to the LAD in late March [address] Vallejo. He has been on aspirin and Plavix. He denies missing any of his medications . ECG demonstrates AV paced rhythm. He had been participating in cardiac rehab and spent time post left heart catheterization at [facility]. He has had episodes of delirium in the past during his most recent hospitalizations. He does have a known history of underlying dementia. REVIEW OF SYSTEMS: Negative for chest pain, chest pressure, shortness of breath, dyspnea, PND, orth opnea or lower extremity edema. He has no complaints of palpitations, dizziness, lightheadedness, n ear syncope, or syncope. He has no complaints of nausea, vomiting or diaphoresis. He denies compla ints of abdominal pain, back pain, flank pain, midscapular pain. He denies complaints of hematuria, melena or hematochezia. He has no reports of vomiting blood. He has been compliant with medicatio ns. PAST MEDICAL HISTORY: 1. Coronary artery disease with recent PCI x3 to the proximal LAD on April 14, 2016. 2. Cardiomyopathy with LVEF of 30% to 35%. 3. 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 4. Hypertension. 5. Hyperlipidemia. 6. Dementia. 7. Diabetes. 8. History of BPH. MEDICATIONS: On admission include Bystolic, spironolactone, lisinopril, aspirin, Plavix, furosemide , simvastatin, levothyroxine, metformin, multivitamin. ALLERGIES: Benadryl. SOCIAL HISTORY: The patient lives with his . He is from [place]. He does speak some Urdu. He does not drink alcohol or use tobacco. FAMILY HISTORY: Noncontributory. PHYSICAL EXAMINATION: VITAL SIGNS: Blood pressure is 155/101, heart rate of 105 in sinus rhythm. Respiratory rate of 18, oxygen saturation 95% on room air. Temperature 36.7. GENERAL: He is awake, alert, oriented, appro priate. He responds appropriately to questions. LUNGS: Clear to auscultation bilaterally. CARDIA C: S1, S2. Regular rate and rhythm. No murmurs, rubs, or gallops. ABDOMEN: Soft, nontender, non distended. There is no pulsatile mass or abdominal bruit. EXTREMITIES: He has no evidence of cyano sis, clubbing or edema. DATA: White blood cell count of 6.98, hemoglobin 11.8, hematocrit 35.6. Sodium of 142, potassium 4 .3, chloride 110, bicarb 22, BUN 29, creatinine 1. Troponin initially was 0.121 and most recently 0. 156. UA is negative. Chest x-ray demonstrates no acute cardiopulmonary process. CT of the head shows moderate diffuse atrophy, old lacunar infarcts. No evidence of acute hemorrhag e. Microvascular disease is noted. ECG is paced rhythm. IMPRESSION: The patient is a pleasant 85-year-old gentleman well known to our practice with a histo ry of coronary artery disease with recent percutaneous coronary intervention x3 to the proximal left anterior descending coronary artery, hypertension, hyperlipidemia, cardiomyopathy with left ventric ular ejection fraction of 30% to 35% on left heart catheterization angiography in March 2016. Hist ory of pacemaker secondary to high-degree AV block who presents with acute onset of delirium and slu rred speech and leg weakness. He has been hemodynamically stable. He has no complaints of chest pa in or chest pressure. ECG is paced. No evidence of failure on exam. Troponin is slightly elevated but flat. He has been compliant with his aspirin and Plavix. No bleeding issues. I would not recommend any further imaging studies at this time in the absence of symptoms and flat t roponin in a gentleman with known coronary disease and recent percutaneous coronary intervention. RECOMMENDATIONS: 1. Continue aspirin 81 mg daily and Plavix 75 mg daily. 2. We will arrange for outpatient followup for early next week and pacemaker interrogation. 3. We will arrange for outpatient complete 2D echocardiogram to assess left ventricular function. 4. I would recommend he remain on his current heart failure regimen. 5. Please call with further questions or concerns. /[id number]/MODL
[2016-05-13 12:13] VITALS: BP 131/82; PULSE 82; RESP 16; TEMP 97.9; O2SAT 91
[2016-05-13] MEDS ORDERED: PNEUMOC 13-VAL CONJ-DIP CRM/PF 0.5 ML SYR IM ONE (12:44)
[2016-05-13] MEDS ORDERED: FLU VACC TS 2016-17(65YR+)/PF 0.5 ML SYR (FLUZONE HIGH DOSE) IM ONE (12:44)
--- NOTE | 2016-05-13 13:13 | GDS ---
DISCHARGE DIAGNOSES: 1. Resolved acute encephalopathy, most likely due to dehydration. 2. Stable coronary artery disease. 3. History of heart failure, appears to be compensated. 4. Mildly elevated troponin with no evidence of acute coronary syndrome. CONSULTANTS: Dr. Gagan Darby, [facility]. HOSPITAL COURSE AND STAY BY PROBLEM: Acute encephalopathy: The patient presented to the hospital w ith confusion. He did have evidence for dehydration with 50-182 hyaline casts in his urine, as well as prerenal azotemia. On hospital day #1, the patient's mentation is back to baseline. The patien t denies any chest pain, and tells me that he feels better and would like to go home. He denies any other acute complaints. Prior to discharge, he was seen by Dr. Darby from [facility], who recommended continuing his home dose of aspirin and Plavix, and planned to see him as an outpatient next week to interrogate his pacemaker and arrange for an outpatient echocardiogram. PHYSICAL EXAM ON DAY OF DISCHARGE: VITAL SIGNS: Blood pressure 131/82, pulse of 82, respiratory ra te 16, O2 sat 91% on room air. GENERAL: No acute distress. HEART: S1, S2. LUNGS: Clear. No wh eezes, rales, or rhonchi. ABDOMEN: Soft. EXTREMITIES: No edema. NEURO: Cranial nerves 2-12 are grossly intact. Face is symmetric. There is no pronator drift. Muscle strength 5/5 bilateral fle xion-extension in the upper extremities. DIAGNOSTICS DONE THIS HOSPITAL STAY: Head CT done on admission was reviewed and negative for acute infarct, hemorrhage, hydrocephalus, or mass effect. DISCHARGE MEDICATIONS: Please refer to discharge medication reconciliation in [facility]. DISCHARGE INSTRUCTIONS: Patient will be discharged from the hospital, where he was advised to maint ain adequate hydration. He should follow up with Dr. Darby as directed for outpatient pacemaker inte rrogation, as well as echocardiogram. /[id number]/MODL
== END 2016-05-13 15:45 | disposition home or self-care (01) ==
LOC: EDUNIT# → F3E 20:44
PROVIDERS: ADMIT Internal Medicine; ATTEND Family Medicine
DX: G93.40 Encephalopathy, unspecified (principal); E86.0 Dehydration; I50.9 Heart failure, unspecified; I25.10 Atherosclerotic heart disease of native coronary artery without angina pectoris; E11.9 Type 2 diabetes mellitus without complications; Z95.0 Presence of cardiac pacemaker; Z95.5 Presence of coronary angioplasty implant and graft; Z23 Encounter for immunization
CPT/HCPCS: 70450; 71020; 90662; 90670; 93005; 97161; G0008; G0009; G0378; G8978; G8979; G8980; J1650

== ENCOUNTER 2016-05-31 00:09 | Inpatient (IN) | payer OTHER, MEDICARE ==
[2016-05-31 00:33] LABS: % IMMATURE GRANULYOCYTES 0.3 % (0.0-1.1); ABSOLUTE IMMATURE GRANULOCYTES 0.03 10^3/uL (0.00-0.10); ADD DIFF? NO; ADD MORPH? NO; ADD SCAN? NO; ATYPICAL LYMPHOCYTE FLAG 0 (0-99); FRAGMENT RBC FLAG 0 (0-99); HEMATOCRIT 44.8 % (40.0-51.0); HEMOGLOBIN 14.5 g/dL (13.7-17.5); LEFT SHIFT FLG 0 (0-99); LIPEMIA HEMOLYSIS FLAG 80 (0-99); MEAN CELL HEMOGLOBIN 29.1 pg (27.9-34.1); MEAN CELL HEMOGLOBIN CONCENTR. 32.4 g/dL (32.4-36.7); MEAN PLATELET VOLUME 11.2 fL (8.7-11.7); PLATELET CLUMPS FLAG 20 (0-99); PLATELET COUNT 202 10^3/uL (150-400); RED BLOOD CELL COUNT 4.98 10^6/uL (4.40-6.38); RED CELL DISTRIBUTION WIDTH 16.7 % (11.5-15.2)
[2016-05-31 00:54] LABS: ANION GAP 16 mEq/L (8-16); CALCIUM 9.6 mg/dL (8.5-10.4); CARBON DIOXIDE 22 mEq/l (22-31); CHLORIDE 102 mEq/L (97-110); CREATININE 1.2 mg/dL (0.7-1.3); GLOMERULAR FILTRATION RATE 58; GLUCOSE 135 mg/dL (70-100); POTASSIUM 4.8 mEq/L (3.5-5.2); SODIUM 140 mEq/L (134-144)
[2016-05-31] MEDS ORDERED: FUROSEMIDE 40 MG/4 ML VIAL IVP ONE ×2 (00:54→16:32)
--- NOTE | 2016-05-31 01:07 | EDPHY ---
H & P Stated Complaint: sudden SOB at rest x90 min, brief R CP Time Seen by Provider: 05/31/16 00:13 HPI/ROS: Chief complaint: Shortness of breath HPI: 85-year-old male with a history of coronary artery disease, on oxygen 2 L 24 hours a day. Patient states that at 11 o'clock this evening he had a sudden onset of shortness of breath with some mild right-sided chest pain. His oxygen concentrator was functioning normally. He has had some slight cough for the last couple of days which is nonproductive. No fevers or chills. No nausea or vomiting. No other chest pain. He is status post 3 stent placement at the end of March of this year. He has been compliant with his medications. Currently is without complaint. He did not receive any specific treatment by EMS. ROS: 10 point Review of Systems is negative except as noted in the HPI. 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 Hypertension Hyperlipidemia Dementia Diabetes BPH Physical exam: Gen: Awake, Alert, No Distress HEENT: Nose: no rhinorrhea Eyes: PERRLA, EOMI Mouth: Moist mucosa Neck: Supple, no JVD Chest: nontender, lungs are diminished primarily at the right base with mild crackles Heart: S1, S2 normal, no murmur Abd: Soft, non-tender, no guarding Back: no CVA tenderness, no midline tenderness Ext: no edema, non-tender Skin: no rash Neuro: CN II-XII intact, Sensation grossly intact, Strength 5/5 in bilateral upper and lower extremities - Personal History Current Tetanus/Diphtheria Vaccine: Yes Current Tetanus Diphtheria and Acellular Pertussis (TDAP): Yes - Medical/Surgical History Hx Asthma: No Hx Chronic Respiratory Disease: No Hx Diabetes: Yes Hx Cardiac Disease: Yes Hx Renal Disease: No Hx Cirrhosis: No Hx Alcoholism: No Hx HIV/AIDS: No Hx Splenectomy or Spleen Trauma: No Other PMH: CAD with stents, HTN, hyperlipidemia, 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 intollerence to benadryl/procedural sedation - Social History Smoking Status: Never smoked Constitutional: Initial Vital Signs Temperature (C) 36.4 C 05/31/16 00:31 Heart Rate 78 03/17/17 00:31 Respiratory Rate 16 05/31/16 00:31 Blood Pressure 158/92 H 05/31/16 00:31 O2 Sat (%) 95 05/31/16 00:31 O2 Delivery Mode Nasal Cannula O2 (L/minute) 2 Allergies/Adverse Reactions: No Known Allergies Allergy (Verified 05/12/16 19:39) Home Medications: Medication Instructions Recorded Furosemide [Lasix 20 MG (*)] 20 mg PO DAILY 01/10/16 Multivitamins [Multivitamin (*)] 1 each PO DAILY 01/10/16 Simvastatin [Zocor] 10 mg PO HS 01/10/16 Spironolactone [Aldactone 25 MG 12.5 mg PO DAILY 01/10/16 (*)] metFORMIN HCL [Glucophage 500 mg 250 mg PO BIDMEAL 01/10/16 (*)] Nitroglycerin [Nitrostat 0.4 mg 0.4 mg SL ONCE PRN #0 btl 01/11/16 (*)] Clopidogrel Bisulfate [Plavix (*)] 75 mg PO DAILY #30 tab 01/12/16 Nebivolol HCl [Bystolic 5 mg (*)] 2.5 mg PO DAILY 04/10/16 Aspirin [Aspirin 325 mg (*)] 162.5 mg PO DAILY 05/12/16 C/E/Zn/Cu/OM3/DHA/EPA/LUT/ZEAX 1 each PO DAILY 05/12/16 [Preservision Areds 2 Softgel] Herbals/Supplements -Info Only 1 ea PO DAILY 05/12/16 Levothyroxine [Synthroid 50 mcg 50 mcg PO DAILY06 05/12/16 (*)] Lisinopril [Zestril 5 mg (*)] 5 mg PO DAILY 05/12/16 Medical Decision Making - Diagnostics EKG Interpretation: ECG time 12:31 a.m., atrial since Comp ventricularly paced rhythm with a rate of 78 Imaging: Chest x-ray: New bilateral interstitial edema with right greater than left new pleural effusions consistent with congestive heart failure. ED Course/Re-evaluation: 85-year-old male with history of coronary disease presenting with acute onset of shortness of breath. He has new CHF on his chest x-ray. I have discussed with Dr. Bharath Newberry, hospitalist. He will admit to his service for further care. He has ordered ice for the patient. At baseline the patient has a normally slightly elevated troponin. Will continue to follow this. Otherwise patient is improved and hemodynamics are appropriate. - Data Points Laboratory Results: Laboratory Results 05/31/16 00:10 05/31/16 00:10 05/31/16 05/31/16 00:10 00:10 WBC 8.93 10^3/uL 10^3/uL (3.80-9.50) RBC 4.98 10^6/uL 10^6/uL (4.40-6.38) Hgb 14.5 g/dL g/dL (13.7-17.5) Hct 44.8 % % (40.0-51.0) MCV 90.0 fL fL (81.5-99.8) MCH 29.1 pg pg (27.9-34.1) MCHC 32.4 g/dL g/dL (32.4-36.7) RDW 16.7 % H % (11.5-15.2) Plt Count 202 10^3/uL 10^3/uL (150-400) MPV 11.2 fL fL (8.7-11.7) Neut % (Auto) 62.2 % % (39.3-74.2) Lymph % (Auto) 25.0 % % (15.0-45.0) [place] % (Auto) 8.7 % % (4.5-13.0) Eos % (Auto) 3.2 % % (0.6-7.6) Baso % (Auto) 0.6 % % (0.3-1.7) Nucleat RBC Rel Count 0.0 % % (0.0-0.2) Absolute Neuts (auto) 5.55 10^3/uL 10^3/uL (1.70-6.50) Absolute Lymphs (auto) 2.23 10^3/uL 10^3/uL (1.00-3.00) Absolute Monos (auto) 0.78 10^3/uL 10^3/uL (0.30-0.80) Absolute Eos (auto) 0.29 10^3/uL 10^3/uL (0.03-0.40) Absolute Basos (auto) 0.05 10^3/uL 10^3/uL (0.02-0.10) Absolute Nucleated RBC 0.00 10^3/uL 10^3/uL (0-0.01) Immature Gran % 0.3 % % (0.0-1.1) Immature Gran # 0.03 10^3/uL 10^3/uL (0.00-0.10) Sodium 140 mEq/L mEq/L (134-144) Potassium 4.8 mEq/L mEq/L (3.5-5.2) Chloride 102 mEq/L mEq/L (97-110) Carbon Dioxide 22 mEq/l mEq/l (22-31) Anion Gap 16 mEq/L mEq/L (8-16) BUN 31 mg/dL H mg/dL (7-23) Creatinine 1.2 mg/dL mg/dL (0.7-1.3) Estimated GFR 58 Glucose 135 mg/dL H mg/dL (70-100) Calcium 9.6 mg/dL mg/dL (8.5-10.4) Troponin I Pending NT-Pro-B Natriuret Pep Pending Departure - Departure Disposition: [facility] Inpatient Acute Clinical Impression: CHF (congestive heart failure) Condition: Fair Referrals: MELISSA COELHO [Primary Care Provider] - As per Instructions
--- NOTE | 2016-05-31 01:36 | GHP ---
[f rep st] HISTORY AND PHYSICAL DATE OF ADMISSION: 05/31/2016 CHIEF COMPLAINT: Shortness of breath. HPI: This is an 85-year-old male with history of coronary artery disease, and LAD stent placed in J anuary, followed by Dr. Darby at [facility], who was hospitalized in April of 2016 aft er he was found to have confusion that was thought to be due to dehydration. The patient typically wears oxygen at home. He was wearing 2 L of oxygen tonight, when he became ac utely short of breath. He denies having any chest pain. EMS was called, where they put him on high -flow O2 and he felt better. He does report orthopnea as well as dyspnea on exertion. He denies an y leg swelling. He reports he has been compliant with his medications. The patient denies cough or fevers or chills. PAST MEDICAL HISTORY: 1. Coronary artery disease with LAD stent placed in March of 2016. 2. Pacemaker secondary to his secondary heart block. 3. Diabetes. 4. BPH. HOME MEDICATIONS: Reviewed. Refer to [employer] for details. ALLERGIES: Benadryl. SOCIAL HISTORY: Lives with his . He denies any alcohol, tobacco, or illicit drug use. FAMILY HISTORY: His parents are . REVIEW OF SYSTEMS: Comprehensive 10-point review of systems was done and is negative except for as mentioned in the HPI. PHYSICAL EXAM: VITAL SIGNS: Blood pressure 158/92, pulse 78, respiratory rate 16, O2 saturation 95 % on 2 L. Temperature afebrile. GENERAL: In no acute distress. HEAD: Normocephalic, atraumatic. EYES: PERRLA. Sclerae anicteric. MOUTH: Moist mucous membranes. NECK: Supple. No lymphadeno martha. CARDIOVASCULAR: S1, S2. There is JVD. There is trace lower extremity edema. PULMONARY: Diminished breath sounds at the right base. LUNGS: Otherwise, clear. There is no respiratory dist ress. There is no dullness to percussion. ABDOMEN: Soft, nontender, nondistended. No guarding or rebound tenderness. Normoactive bowel sounds. EXTREMITIES: No clubbing or cyanosis. NEURO: Switch[employer] Hel[employer] nial nerves 2 through 12 grossly intact. No focal motor or sensory deficits. SKIN. Clear. No malena h. DIAGNOSTICS: WBCs 8.9, hemoglobin 14.5, hematocrit 44.8, platelets 202. Sodium 140, potassium 4.8, CO2 20, BUN 31, creatinine 1.2, glucose 135. Troponin is pending. EKG: I have ordered EKG which is pending. Chest x-ray, which was just done, preliminary read by myself, shows right lower lobe ef fusion, as well as a small left pleural effusion, with significant cardiomegaly. ASSESSMENT: This is an 85-year-old male with known coronary disease, status post left anterior desc ending stent placed in March 2016, presenting with acute respiratory failure likely due to acute c ongestive heart failure, most likely systolic. PLAN: The patient will be placed on observation, where I have ordered 40 mg of IV Lasix. We will o rder a BNP. We will defer ordering an echocardiogram at this time. Will ask my covering partner to consult [facility]iology in the morning for further advice. The patient's initial troponin is currently pending, as well as EKG. His troponin is typically elevated, but will plan o n trending his troponin overnight. /[id number]/MODL
--- NOTE | 2016-05-31 05:32 | CPEKG ---
Heart Rate: 78 RR Interval: 769 P-R Interval: 176 QRSD Interval: 140 QT Interval: 416 QTC Interval: 474 P Lerna: 88 QRS Lerna: 113 T Wave Lerna: -74 EKG Severity - ABNORMAL ECG - EKG Impression: ATRIAL-SENSED VENTRICULAR-PACED COMPLEXES EKG Impression: NONSPECIFIC INTRAVENTRICULAR CONDUCTION DELAY EKG Impression: CONSIDER LEFT VENTRICULAR HYPERTROPHY Electronically Signed By: Wellington Barron 31-May-2016 06:20:26
[2016-05-31 06:24] LABS: % IMMATURE GRANULYOCYTES 0.3 % (0.0-1.1); ABSOLUTE IMMATURE GRANULOCYTES 0.02 10^3/uL (0.00-0.10); ADD DIFF? NO; ADD MORPH? NO; ADD SCAN? NO; ATYPICAL LYMPHOCYTE FLAG 0 (0-99); FRAGMENT RBC FLAG 0 (0-99); HEMATOCRIT 40.8 % (40.0-51.0); HEMOGLOBIN 13.5 g/dL (13.7-17.5); LEFT SHIFT FLG 0 (0-99); LIPEMIA HEMOLYSIS FLAG 80 (0-99); MEAN CELL HEMOGLOBIN 29.2 pg (27.9-34.1); MEAN CELL HEMOGLOBIN CONCENTR. 33.1 g/dL (32.4-36.7); MEAN CELL VOLUME 88.1 fL (81.5-99.8); PLATELET CLUMPS FLAG 0 (0-99); PLATELET COUNT 179 10^3/uL (150-400); RED BLOOD CELL COUNT 4.63 10^6/uL (4.40-6.38); RED CELL DISTRIBUTION WIDTH 16.5 % (11.5-15.2)
[2016-05-31 06:49] LABS: ANION GAP 14 mEq/L (8-16); CALCIUM 9.4 mg/dL (8.5-10.4); CARBON DIOXIDE 22 mEq/l (22-31); CHLORIDE 101 mEq/L (97-110); GLOMERULAR FILTRATION RATE > 60; GLUCOSE 155 mg/dL (70-100); POTASSIUM 4.2 mEq/L (3.5-5.2); SODIUM 137 mEq/L (134-144)
[2016-05-31 07:00] LABS: TROPONIN I 0.166 ng/mL (0-0.034)
--- NOTE | 2016-05-31 16:37 | HOSPPROG ---
Hospitalist Progress Note Assessment/Plan: * CHF exacerbation versus anginal equivalent * will continue diuresis * discussed with Cardiology - they will see * mild troponin elevation * is flat * history of coronary artery disease with recent stent LAD * continue aspirin * not having any chest pain but troponin is mildly elevated * Cardiology will see * pacemaker Subjective: feels a little bit better. Objective: Vital Signs Temp Pulse Resp BP Pulse Ox 36.4 C 77 15 122/65 H 99 05/31/16 15:25 05/31/16 15:25 05/31/16 15:25 05/31/16 15:25 05/31/16 15:25 Laboratory Results 05/31/16 06:11 05/31/16 06:11 05/30/16 05/31/16 06/01/16 05:59 05:59 05:59 Output Total 510 452 Balance -510 -452 Discussed with Cardiology chest x-ray personally viewed interpreted - possible pulmonary edema - Physical Exam Constitutional: no apparent distress, appears nourished, not in pain Eyes: anicteric sclera, EOMI Ears, Nose, Mouth, Throat: moist mucous membranes, hearing normal, ears appear normal Cardiovascular: regular rate and rhythym, No edema Respiratory: no respiratory distress, no rales or rhonchi, clear to auscultation Gastrointestinal: normoactive bowel sounds, soft, non-tender abdomen, no palpable masses Skin: warm Psychiatric: interacting appropriately, not anxious, not encephalopathic, thought process linear ICD10 Worksheet Patient Problems: Problems Problem Status Onset CHF (congestive heart failure) Acute Coronary artery disease Acute Essential (primary) hypertension Acute Hyperlipidemia Acute Pacemaker Acute S/P coronary artery stent placement Acute Weakness Acute
[2016-05-31] MEDS: SPIRONOLACTONE 25 MG TAB PO SCH (17:30)
[2016-05-31] MEDS: NEBIVOLOL HCL 5 MG TAB PO SCH (17:30)
[2016-05-31] MEDS: metFORMIN HCL 500 MG TAB PO SCH (17:30)
[2016-05-31] MEDS: CLOPIDOGREL BISULFATE 75 MG TAB PO SCH (17:30)
[2016-05-31] MEDS: LISINOPRIL 5 MG TAB PO SCH (17:30)
[2016-05-31] MEDS: LEVOTHYROXINE 50 MCG TAB PO SCH (17:31)
[2016-05-31] MEDS ORDERED: NON-FORMULARY NEW DRUG (Simvastatin [Zocor] 10 MG) PO SCH ×2 (21:00)
[2016-05-31] MEDS: PRAVASTATIN SODIUM 20 MG TAB PO SCH (22:56)
[2016-06-01] MEDS: LEVOTHYROXINE 50 MCG TAB PO SCH (06:02)
[2016-06-01 07:13] LABS: % IMMATURE GRANULYOCYTES 0.4 % (0.0-1.1); ABSOLUTE IMMATURE GRANULOCYTES 0.03 10^3/uL (0.00-0.10); ADD DIFF? NO; ADD MORPH? NO; ADD SCAN? NO; ATYPICAL LYMPHOCYTE FLAG 0 (0-99); FRAGMENT RBC FLAG 0 (0-99); HEMOGLOBIN 13.8 g/dL (13.7-17.5); LEFT SHIFT FLG 0 (0-99); LIPEMIA HEMOLYSIS FLAG 80 (0-99); MEAN CELL HEMOGLOBIN 29.2 pg (27.9-34.1); MEAN CELL HEMOGLOBIN CONCENTR. 32.9 g/dL (32.4-36.7); MEAN CELL VOLUME 88.8 fL (81.5-99.8); MEAN PLATELET VOLUME 11.1 fL (8.7-11.7); PLATELET CLUMPS FLAG 10 (0-99); PLATELET COUNT 186 10^3/uL (150-400); RED BLOOD CELL COUNT 4.73 10^6/uL (4.40-6.38); RED CELL DISTRIBUTION WIDTH 16.2 % (11.5-15.2)
[2016-06-01 07:14] LABS: ALANINE AMINOTRANSFERASE 45 IU/L (21-72); ALBUMIN 3.9 g/dL (3.5-5.0); ALKALINE PHOSPHATASE 115 IU/L (38-126); ANION GAP 15 mEq/L (8-16); ASPARTATE AMINOTRANSFERASE 27 IU/L (17-59); BILIRUBIN,TOTAL 1.3 mg/dL (0.1-1.4); CALCIUM 9.5 mg/dL (8.5-10.4); CARBON DIOXIDE 21 mEq/l (22-31); CHLORIDE 103 mEq/L (97-110); GLOMERULAR FILTRATION RATE > 60; GLUCOSE 144 mg/dL (70-100); MAGNESIUM 1.8 mg/dL (1.6-2.3); POTASSIUM 4.3 mEq/L (3.5-5.2); SODIUM 139 mEq/L (134-144); TOTAL PROTEIN 7.1 g/dL (6.3-8.2)
[2016-06-01] MEDS: FUROSEMIDE 40 MG/4 ML VIAL IVP SCH ×2 (09:39→15:18)
[2016-06-01] MEDS: metFORMIN HCL 500 MG TAB PO SCH (09:39)
[2016-06-01] MEDS: SPIRONOLACTONE 25 MG TAB PO SCH (09:43)
[2016-06-01] MEDS: NEBIVOLOL HCL 5 MG TAB PO SCH (09:43)
[2016-06-01] MEDS: ASPIRIN EC 81 MG TAB PO SCH (09:44)
[2016-06-01] MEDS: LISINOPRIL 5 MG TAB PO SCH (09:44)
[2016-06-01] MEDS: CLOPIDOGREL BISULFATE 75 MG TAB PO SCH (09:45)
--- NOTE | 2016-06-01 14:05 | HOSPPROG ---
Hospitalist Progress Note Assessment/Plan: * CHF exacerbation versus anginal equivalent * will continue diuresis * discussed with Cardiology at [facility] who said they would see last night. If they do not see today then would get [facility] to see or have him follow up * would like to get echocardiogram read * mild troponin elevation * is flat * history of coronary artery disease with multiple recent stents * continue aspirin * not having any chest pain but troponin is mildly elevated * Cardiology will see * pacemaker Subjective: feels better. Denies any chest pain or shortness of breath Objective: Vital Signs Temp Pulse Resp BP Pulse Ox 36.6 C 72 16 112/63 99 06/01/16 12:21 06/01/16 12:21 06/01/16 12:21 06/01/16 12:21 06/01/16 12:21 Laboratory Results 06/01/16 06:30 06/01/16 06:30 05/31/16 06/01/16 06/02/16 05:59 05:59 05:59 Intake Total 560 120 Output Total 510 1152 100 Balance -510 -592 20 - Physical Exam Constitutional: no apparent distress, appears nourished, not in pain Eyes: anicteric sclera, EOMI Ears, Nose, Mouth, Throat: moist mucous membranes, hearing normal Cardiovascular: regular rate and rhythym, no murmur, rub, or gallop Respiratory: no respiratory distress, no rales or rhonchi, clear to auscultation Gastrointestinal: normoactive bowel sounds, soft, non-tender abdomen, no palpable masses Skin: warm Neurologic: AAOx3 Psychiatric: interacting appropriately, not anxious, not encephalopathic, thought process linear ICD10 Worksheet Patient Problems: Problems Problem Status Onset CHF (congestive heart failure) Acute Coronary artery disease Acute Essential (primary) hypertension Acute Hyperlipidemia Acute Pacemaker Acute S/P coronary artery stent placement Acute Weakness Acute
[2016-06-01] MEDS: PRAVASTATIN SODIUM 20 MG TAB PO SCH (22:16)
[2016-06-02] MEDS: LEVOTHYROXINE 50 MCG TAB PO SCH (05:13)
[2016-06-02 05:27] LABS: ANION GAP 11 mEq/L (8-16); CALCIUM 9.2 mg/dL (8.5-10.4); CARBON DIOXIDE 25 mEq/l (22-31); CHLORIDE 101 mEq/L (97-110); CREATININE 1.1 mg/dL (0.7-1.3); GLOMERULAR FILTRATION RATE > 60; GLUCOSE 149 mg/dL (70-100); MAGNESIUM 1.9 mg/dL (1.6-2.3); POTASSIUM 4.2 mEq/L (3.5-5.2); SODIUM 137 mEq/L (134-144)
[2016-06-02] MEDS: metFORMIN HCL 500 MG TAB PO SCH (08:56)
[2016-06-02] MEDS: SPIRONOLACTONE 25 MG TAB PO SCH (08:56)
[2016-06-02] MEDS: NEBIVOLOL HCL 5 MG TAB PO SCH (08:56)
[2016-06-02] MEDS: LISINOPRIL 5 MG TAB PO SCH (08:57)
[2016-06-02] MEDS: ASPIRIN EC 81 MG TAB PO SCH (08:57)
[2016-06-02] MEDS: CLOPIDOGREL BISULFATE 75 MG TAB PO SCH (08:57)
[2016-06-02] MEDS: FUROSEMIDE 40 MG/4 ML VIAL IVP SCH (09:00)
--- NOTE | 2016-06-02 14:51 | HOSPPROG ---
Hospitalist Progress Note Assessment/Plan: 81 through year old male with known history of coronary artery disease and CHF who was admitted because of shortness of breath. He is currently diurese 10 kg while in this hospitalization. He continues to complain of chest heaviness and some shortness of breath. He has been unable to walk in the english and his considers he still weak. Patient is new to me today. -acute CHF systolic decompensated. He is currently diuresing nicely with Lasix but we will increase his Lasix as he continues to have elevated JVP. -mild troponin elevation which is currently flat. He is not experiencing chest pain but he does have some heaviness. -history of coronary artery disease with multiple recent stents * Cardiology will see -mild metabolic alkalosis secondary to diuresis. Will recheck a CO2 tomorrow on the BMP and perhaps use Diamox. -disposition pending discharge in the next 1-2 days. Need PT and OT to assess for his need of care. Subjective: Reports some feeling shortness of breath and this is confirmed by his . He has been weak when he is ambulating to the bathroom. He has not taken a walk in the english. Denies fever chills sweats nausea vomiting or ulises chest pain. Objective: Vital Signs Temp Pulse Resp BP Pulse Ox 36.6 C 71 18 127/73 H 98 06/02/16 11:35 06/02/16 11:35 06/02/16 11:35 06/02/16 11:35 06/02/16 11:35 Laboratory Results 06/02/16 04:08 06/01/16 06/02/16 06/03/16 05:59 05:59 05:59 Intake Total 618 Balance 618 - Time Spent With Patient Time Spent with Patient: greater than 35 minutes Time Spent with Patient: Greater than 35 minutes spent on this patients care, greater than 50% of time spent counseling, educating, and coordinating care regarding the above mentioned plan. - Physical Exam Constitutional: no apparent distress, chronically ill appearing Eyes: PERRL Ears, Nose, Mouth, Throat: hard of hearing Cardiovascular: regular rate and rhythym, systolic murmur Respiratory: no respiratory distress, no rales or rhonchi, reduced air movement Gastrointestinal: normoactive bowel sounds, soft, non-tender abdomen Genitourinary: no bladder fullness Skin: warm Musculoskeletal: generalized weakness Neurologic: AAOx3, CN II-XII Intact ICD10 Worksheet Patient Problems: Problems Problem Status Onset Coronary artery disease Acute Essential (primary) hypertension Acute Pacemaker Acute Hyperlipidemia Acute S/P coronary artery stent placement Acute Weakness Acute CHF (congestive heart failure) Acute
[2016-06-02] MEDS ORDERED: FUROSEMIDE 40 MG/4 ML VIAL IVP ONE ×2 (15:00)
--- NOTE | 2016-06-02 15:21 | ECHO ---
[id number] + + [address] : : [place] [address] : : [phone] + + Adult Echocardiographic Report + ---------+ :Name: CHIOMA BOWENS Mehnaz Date: 05/31/2016 11:04 AM : : Hospital Admission Number: [id number] : :: 1930 Gender: Male Height: 66 in : :Age: 85 yrs Race: WH Weight: 150 lb : :Reason For Study: Eval LV Fx : : BSA: 1. 8 meters2: :History: CHF, Hx of Pacemaker : + ---------+ MMode/2D Measurements \T\ Calculations IVSd: 1.1 cm LVIDd: 3.9 cm FS: 21.8 % Ao root diam: 3.5 cm LVPWd: 1.2 cm LVIDs: 3.0 cm EDV(Teich): 63.9 ml ACS: 1.7 cm ESV(Teich): 35.3 ml EF(Teich): 44.8 % LVOT diam: 2.0 cm LVOT area: 3.1 cm2 Normal Measurement Values: + + :LVIDd (3.5-5.7cm) IVSd (0.6-1.1cm) LVPWd (0.6-1.1cm) Aortic Root (2.0-3.7cm)Left Atrium (1.5-4.0cm): :LV Vol(d) (76-115ml) LV Vol(s) (29-48ml) Ejec Fraction (50-65%)PV Epifanio (0.6- 1.2m/s) TV Epifanio (0.4-1.0m/s) : :MV E Epifanio (0.8-1.0m/s)MV A Epifanio (0.3-1.0m/s)LVOT Epifanio (0.7-1.2m/s) Asc Ao Epifanio ( 0.9-1.8m/s) : + + Doppler Measurements \T\ Calculations MV E max epifanio: Ao V2 max: AI max epifanio: LV V1 max: 90.8 cm/sec 102.9 cm/sec 347.0 cm/sec 80.9 cm/sec Ao max PG: AI max P.2 mmHg LV V1 max P.2 mmHg AI dec slope: 2.6 mmHg KATHERINE(V,D): 2.5 cm2 177.0 cm/sec2 AI P1/2t: 574.2 msec MR max epifanio: PA V2 max: TR max epifanio: 471.0 cm/sec 62.4 cm/sec 277.0 cm/sec MR max PG: PA max PG: TR max P.7 mmHg 88.7 mmHg 1.6 mmHg RAP systole: 5.0 mmHg RVSP(TR): 35.7 mmHg Left Ventricle The left ventricle is normal in size. There is mild concentric left ventricular hypertrophy. Left ventricular systolic function is low normal. Ejection Fraction = 45-50%. There is subtle basilar hypokinesis. Right Ventricle There is a pacemaker lead in the right ventricle. The right ventricle is normal size. The right ventricular systolic function is normal. Atria The left atrium is moderate to severely dilated. The right atrium is moderately dilated. Mitral Valve The mitral valve leaflets appear thickened, but open well. There is no evidence of mitral valve prolapse. There is no mitral valve stenosis. There is mild mitral regurgitation. Tricuspid Valve The tricuspid valve is normal in structure and function. There is mild tricuspid regurgitation. Right ventricular systolic pressure is normal. Aortic Valve The aortic valve is trileaflet. There is no aortic stenosis. Mild aortic regurgitation. Pulmonic Valve The pulmonic valve is normal in structure and function. There is no pulmonic valvular regurgitation. Great Vessels The aortic root is normal size. Pericardium/Pleural There is no pericardial effusion. Conclusion A complete two-dimensional transthoracic echocardiogram was performed (2D, M-mode, Doppler and color flow Doppler). There is mild concentric left ventricular hypertrophy. Left ventricular systolic function is low normal. Ejection Fraction = 45-50%. There is subtle basilar hypokinesis There is a pacemaker lead in the right ventricle. The left atrium is moderate to severely dilated. The right atrium is moderately dilated. The mitral valve leaflets appear thickened, but open well. There is mild mitral regurgitation. The tricuspid valve is normal in structure and function. There is mild tricuspid regurgitation. Right ventricular systolic pressure is normal. The aortic valve is trileaflet. Mild aortic regurgitation. There is no pericardial effusion. No prior echo in this system Final Reading Physician: Dr Soraya Hebert electronically signed on 06/02/2016 03:20 PM Ordering Physician: Alba Abdi Performed By: Malik Uribe, PARISACS
--- NOTE | 2016-06-02 15:41 | GCON ---
[f rep st] CONSULTATION DATE OF CONSULTATION: 06/02/2016 CHIEF COMPLAINT: Shortness of breath. HISTORY OF PRESENT ILLNESS: We were asked by Dr. Abdi and Dr. Steen to visit with the patient. The patient is an 85-year-old male, who is followed at the [facility]. He has a history of coronary artery disease with previous LAD and obtuse marginal stenting. M ost recently, he had 3 drug-eluting stents placed in the LAD in March of this year. 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 He has systolic heart failure with an ejection fraction of approximately 45%, permanent pacemaker for complete heart block , diabetes, pulmonary hypertension. He was admitted on May 31 with progressive dyspnea, as well as some intermittent chest pressure. He has been diuresed over the past couple of days, losing approximately 10 kg with IV Lasix. His troponin has been minimally elevated, but not significantly changed compared to previous admissions. His BNP was elevated at about 8000. Upon my evaluation today, he continues to complain of dyspnea even with minimal exertion, such as ge tting up to use the bathroom. Initially, he did not endorse chest discomfort, but then he says that sometimes, with the dyspnea he feels some chest pressure. He has not had syncope or palpitations. He has had minimal bilateral lower extremity edema. He reports that he has been taking all medicat ions as prescribed, and he reports that he has not been drinking alcohol. REVIEW OF SYSTEMS: A full 10-point review of systems is performed and it was negative, except that which is outlined in the history of present illness. PAST MEDICAL HISTORY: 1. Coronary artery disease, as detailed above. 2. Systolic heart failure with an ejection fraction of 45%. 3. Permanent pacemaker. 4. Diabetes. 5. BPH. 6. Pulmonary hypertension with estimated pulmonary pressures in the low 40s. 7. Hypothyroidism. OUTPATIENT MEDICATIONS: Aspirin 81 mg daily, Plavix 75 mg daily, Lasix 20 mg daily, Synthroid 50 mc g daily, Zestril 5 mg daily, metformin, multivitamin, Bystolic 2.5 mg daily, nitroglycerin, simvast atin 10 mg daily, and spironolactone. SOCIAL HISTORY: Patient denies tobacco or alcohol use. He lives with his . FAMILY HISTORY: Not applicable. PHYSICAL EXAMINATION: VITAL SIGNS: Blood pressure 127/73, heart rate 71, oxygen saturation 98% on 2.5 L nasal cannula. He is afebrile, respiratory rate is 18. GENERAL: A frail appearing, elderly male, in no acute distress. HEENT: Sclerae are clear and free of jaundice. Mucous members are [place] [facility]. CARDIOVASCULAR: JVP is approximately 12-14 cm of water. Carotids equal and 2+, without bruit. Regular rate and rhythm, with a soft early systolic murmur at the left sternal border. No S3, S4, o r rub. LUNGS: Decreased breath sounds bilateral, without wheezes, rhonchi, or rales. ABDOMEN: So ft, nontender, nondistended, without bruits, masses or hepatosplenomegaly. EXTREMITIES: Warm and w ell perfused with trace bilateral ankle edema. NEURO: Alert and oriented x3, without gross focal n eurologic deficits. Appropriate mood and affect. LABORATORY DATA: CBC is essentially normal, except for a mildly elevated RDW. Hematocrit 42. Sodium 137, potassium 4.2, chloride 101, bicarb 25, BUN 34, creatinine 1.1, glucose 149. LFTs normal. Troponin has been flat, in the 0.14 to 0.17 range. BNP upon admission w as 8,310. TSH is pending. EKG reviewed by me, shows a sensed V paced rhythm. Echocardiogram reviewed by me, shows mild decrea sed ejection fraction at 45% to 50%. Possible subtle inferobasal hypokinesis. Moderate aortic and mitral regurgitation. Pacemaker seen in the right heart. Mild to moderate tricuspid regurgitation with estimated PA pressure in the low 40s. Mild concentric LVH. Chest x-ray, reviewed by me: His x-ray from today is improved since May 31. On admission he sue d bibasilar pleural parenchymal consolidation. ASSESSMENT AND PLAN: An 85-year-old male with coronary artery disease, status post recent stenting with 3 drug-eluting stents to the LAD, cardiomyopathy with ejection fraction of 45%, pulmonary hyper tension, pacemaker. He is admitted with acute on chronic systolic heart failure. He has had signif icant diuresis, but remains volume overloaded based on exam and symptoms of dyspnea. I am also conc erned that his dyspnea and chest pressure could represent an anginal equivalent. He does have chron ic total occlusion of the 2nd obtuse marginal, this could manifest as some coronary insufficiency. 1. Heart failure: As above, acute on chronic. Increase Lasix to 80 mg twice a day. Increase spir onolactone to 25 mg daily. Careful attention to his renal function and electrolytes. He is on TIUMR inhibitor, and beta-jimmy. We will up titrate these, as his blood pressure and renal function rajiv erate. Would recommend up titrating these as his blood pressure and renal function tolerate. 2. Coronary artery disease: He is on statin, as well as dual antiplatelet therapy. These should b e continued. There is no need for urgent catheterization, but if symptoms not improved with more ag gressive diuresis, may require repeat angiogram. His EKG is uninterpretable for ischemia, given his paced rhythm. 3. Pacemaker: He is mostly V paced. 4. Diabetes, per internal medicine. 5. Pulmonary hypertension: This is mild and likely related to his left heart failure. Thank you for allowing us to participate in the care of this patient. Dr. Vallejo will be the assum ing care tomorrow. /[id number]/MODL
[2016-06-02] MEDS: PRAVASTATIN SODIUM 20 MG TAB PO SCH (20:29)
[2016-06-03 04:49] LABS: % IMMATURE GRANULYOCYTES 0.3 % (0.0-1.1); ABSOLUTE IMMATURE GRANULOCYTES 0.02 10^3/uL (0.00-0.10); ADD DIFF? NO; ADD MORPH? NO; ADD SCAN? NO; ATYPICAL LYMPHOCYTE FLAG 0 (0-99); FRAGMENT RBC FLAG 0 (0-99); HEMATOCRIT 38.9 % (40.0-51.0); HEMOGLOBIN 12.5 g/dL (13.7-17.5); LEFT SHIFT FLG 0 (0-99); LIPEMIA HEMOLYSIS FLAG 80 (0-99); MEAN CELL HEMOGLOBIN 28.2 pg (27.9-34.1); MEAN CELL HEMOGLOBIN CONCENTR. 32.1 g/dL (32.4-36.7); MEAN CELL VOLUME 87.8 fL (81.5-99.8); MEAN PLATELET VOLUME 11.2 fL (8.7-11.7); PLATELET CLUMPS FLAG 0 (0-99); PLATELET COUNT 179 10^3/uL (150-400); RED BLOOD CELL COUNT 4.43 10^6/uL (4.40-6.38); RED CELL DISTRIBUTION WIDTH 15.9 % (11.5-15.2)
[2016-06-03] MEDS: LEVOTHYROXINE 50 MCG TAB PO SCH (04:53)
[2016-06-03 05:06] LABS: ANION GAP 11 mEq/L (8-16); CARBON DIOXIDE 24 mEq/l (22-31); CHLORIDE 102 mEq/L (97-110); GLOMERULAR FILTRATION RATE > 60; GLUCOSE 181 mg/dL (70-100); POTASSIUM 4.1 mEq/L (3.5-5.2); SODIUM 137 mEq/L (134-144)
[2016-06-03] MEDS ORDERED: SPIRONOLACTONE 25 MG TAB PO SCH (09:00)
[2016-06-03] MEDS: LISINOPRIL 5 MG TAB PO SCH (09:23)
[2016-06-03] MEDS: CLOPIDOGREL BISULFATE 75 MG TAB PO SCH (09:23)
[2016-06-03] MEDS: ASPIRIN EC 81 MG TAB PO SCH (09:23)
[2016-06-03] MEDS: FUROSEMIDE 100 MG/10 ML VIAL IVP SCH ×2 (09:24→15:14)
[2016-06-03] MEDS: metFORMIN HCL 500 MG TAB PO SCH (09:24)
[2016-06-03] MEDS: NEBIVOLOL HCL 5 MG TAB PO SCH (09:24)
[2016-06-03] MEDS ORDERED: TAMSULOSIN HCL 0.4 MG CAP PO SCH (11:00)
[2016-06-03 11:24] VITALS: RESP 19; TEMP 97.7
--- NOTE | 2016-06-03 13:16 | PDIAF ---
- Diagnosis Code Status: Full Code - Medication Management Discharge Medications: Medications to Continue on Transfer Multivitamins [Multivitamin (*)] 1 tab PO DAILY 01/10/16 [Last Taken 05/30/16 08 :00] Simvastatin [Zocor] 10 mg PO HS 01/10/16 [Last Taken 05/30/16 21:00] Spironolactone [Aldactone 25 MG (*)] 12.5 mg PO DAILY 01/10/16 [Last Taken 05/12] metFORMIN HCL [Glucophage 500 mg (*)] 250 mg PO DAILY 01/10/16 [Last Taken 05/30 08:00] Nitroglycerin [Nitrostat 0.4 mg (*)] 0.4 mg SL ONCE PRN #0 btl 01/11/16 [Last Taken 05/30/16] Clopidogrel Bisulfate [Plavix (*)] 75 mg PO DAILY #30 tab 01/12/16 [Last Taken 05/30/16 08:00] Nebivolol HCl [Bystolic 5 mg (*)] 2.5 mg PO DAILY 04/10/16 [Last Taken 05/30/16 08:00] C/E/Zn/Cu/OM3/DHA/EPA/LUT/ZEAX [Preservision Areds 2 Softgel] 1 cap PO DAILY [Last Taken 05/30/16 08:00] Herbals/Supplements -Info Only 1 ea PO DAILY 05/12/16 [Last Taken Unknown] Levothyroxine [Synthroid 50 mcg (*)] 50 mcg PO DAILY06 05/12/16 [Last Taken ] Lisinopril [Zestril 5 mg (*)] 5 mg PO DAILY 05/12/16 [Last Taken Unknown] Aspirin EC [Aspirin EC 81 mg (*)] 81 mg PO DAILY 05/31/16 [Last Taken 05/30/16 08:00] Furosemide [Lasix 40 MG (*)] 40 mg PO DAILY #30 tab 06/03/16 [Last Taken Unknown ] Tamsulosin HCl [Flomax 0.4 MG (*)] 0.4 mg PO DAILY #30 cap 06/03/16 [Last Taken Unknown] Discharge Medications: Refer to the Discharge Home Medication list for PRN reason. - Orders Services needed: Registered Nurse, Physical Therapy, Occupational Therapy Oxygen: 1-2 liters per minute continuous Diet Recommendation: sodium restricted Diet Texture: Regular Texture Diet - Labs/Radiology BMP Date: 06/10/16 CBC Date: 06/10/16 - Follow Up Care Current Providers and Referrals: MELISSA COELHO [Primary Care Provider] - As per Instructions
--- NOTE | 2016-06-03 15:21 | GDS ---
[f rep st] DISCHARGE SUMMARY NEW AND ACUTE DIAGNOSES: 1. Acute decompensated systolic congestive heart failure. 2. Coronary artery disease status post stent placement in March 2016; no evidence of cardiac isch emia. 3. Chronic respiratory failure on home oxygen due to congestive heart failure. 4. Benign prostatic hypertrophy, newly started on Flomax. 5. History of a permanent pacemaker placed remotely. 6. Diabetes mellitus managed with SSI medication during this hospitalization. CONSULTATION: Cardiology. PROCEDURES: Echocardiogram showing reduced systolic function with an ejection fraction of 45%. HOSPITAL COURSE: This is an 85-year-old male who presented with shortness of breath and was found t o be in decompensated systolic congestive heart failure. His diuretic therapy was increased and he diuresed 10 kg during this hospitalization and felt much improved. Despite the diuresis, at this po int he continues to require home O2 and will be discharged with his home O2 that is currently in jose ce. His need of oxygen can be reassessed at his followup visit. His renal function remained normal throughout the aggressive diuresis, although there was a slight increase in his BUN from a baseline on admission at 31 to discharge at 34. Glucose remained in good control. DISCHARGE MEDICATIONS: Changed medication will be: An increase in his furosemide. He will be discharged on Lasix 40 mg a day. Flomax 0.4 mg p.o. aden y. The Flomax is a new medication The remainder of his medications will remain unchanged and are as follows: ASA 81 mg a day, Plavix 75 mg a day, Synthroid 50 mcg a day, lisinopril 5 mg a day, metformin 250 mg daily, Bystolic 2.5 mg daily, Zocor 10 mg daily, PreserVision soft gel 1 capsule daily, herbal supp lementation, multivitamin daily, nitroglycerin 0.4 mg sublingual p.r.n. chest pain, spironolactone 1 2.5 mg daily. PLAN: The gentleman is discharged to his home. He will be followed by [facility] which he h as had previously. I have ordered RN, PT and OT evaluation there at home. He had a Leblanc catheter which was placed while in the hospital and that was removed and he was able to urinate at the time o f discharge. He will see Dr. William Matias, his PCP, whom he will see in 1-2 weeks. TIME: This discharge required 50 minutes, greater than 50% to activities counselor and coordinate his care for h is transfer home. /[id number]/MODL
[2016-06-03 16:41] VITALS: BP 107/63; PULSE 69; O2SAT 97
== END 2016-06-03 16:59 | disposition home or self-care (01) | DRG 292 ==
LOC: EDUNIT# → F2W 12:41 → OBSVTOIN 06-01 14:03
PROVIDERS: ADMIT Family Medicine; ATTEND Internal Medicine Pulmonary Disease
DX: I11.0 Hypertensive heart disease with heart failure (principal); I50.23 Acute on chronic systolic (congestive) heart failure; I25.10 Atherosclerotic heart disease of native coronary artery without angina pectoris; Z95.5 Presence of coronary angioplasty implant and graft; Z95.0 Presence of cardiac pacemaker; J96.11 Chronic respiratory failure with hypoxia; Z99.81 Dependence on supplemental oxygen; N40.1 Benign prostatic hyperplasia with lower urinary tract symptoms; R33.9 Retention of urine, unspecified; E11.9 Type 2 diabetes mellitus without complications; E78.5 Hyperlipidemia, unspecified; F03.90 Unspecified dementia, unspecified severity, without behavioral disturbance, psychotic disturbance, mood disturbance, and anxiety
CPT/HCPCS: 97161-GP; 97165-GO; G0378; G8978-GP-CI; G8979-GP-CI; G8980-GP-CI; G8987-GO-CJ; G8988-GO-CI

== ENCOUNTER → 2016-06-26 | Outpatient (CLI) | payer OTHER, MEDICARE | LOC: BMCIMAGING 15:28 | PROVIDERS: ATTEND Physician Assistant Medical | DX: R06.02 Shortness of breath (principal); I50.9 Heart failure, unspecified; I50.30 Unspecified diastolic (congestive) heart failure; R41.3 Other amnesia | CPT/HCPCS: 82607-90 ==

== ENCOUNTER → 2016-07-05 | Outpatient (CLI) | payer OTHER, MEDICARE | LOC: FIMAGING 11:48 | PROVIDERS: ATTEND Psychiatry & Neurology Neurology | DX: R41.3 Other amnesia (principal); R53.1 Weakness; R93.0 Abnormal findings on diagnostic imaging of skull and head, not elsewhere classified ==

== ENCOUNTER 2016-07-10 17:30 | Inpatient (IN) | payer OTHER, MEDICARE ==
--- NOTE | 2016-07-10 17:46 | CPEKG ---
Heart Rate: 86 RR Interval: 698 P-R Interval: 180 QRSD Interval: 136 QT Interval: 408 QTC Interval: 488 P Eidson: 102 QRS Eidson: 103 T Wave Eidson: 257 EKG Severity - ABNORMAL ECG - EKG Impression: ATRIAL-SENSED VENTRICULAR-PACED RHYTHM Electronically Signed By: Shiv Navas 10-Jul-2016 21:18:48
--- NOTE | 2016-07-10 18:14 | EDPHY ---
H & P Time Seen by Provider: 07/10/16 18:08 HPI/ROS: Chief complaint. Near syncope HPI. 85-year-old male presents emergency department by EMS after having near syncopal episode at his physician's office. He became lightheaded and almost passed out. He had chest pain in the office but it is resolved. No fever or cough. No shortness of breath. No abdominal pain. He has a hard time describing his chest discomfort. He has had previous coronary artery disease and cardiac stents. ROS Constitutional. Near syncope Eyes. no problems with vision ENT. no sore throat, no nasal drainage Cardiovascular. Chest pain-resolved Respiratory. no shortness of breath, no cough Abdominal. no abdominal pain, no nausea/vomiting, no diarrhea . no problems urinating MS. no calf pain/swelling, no neck/back pain, no joint pain Skin. no rash Lymph. no swollen glands Neuro. no headache, no dizziness, no difficulty walking or with speech Past Medical/Surgical History: Past medical history systolic CHF, coronary artery disease with stents, BPH, hypertension, pacemaker, diabetes Social History: , nonsmoker, no alcohol Smoking Status: Never smoked Physical Exam: General Appearance: Alert well-developed male mild distress vital signs are stable Eyes: Pupils equal and round no pallor or injection. ENT, Mouth: Mucous membranes are moist. Respiratory: There are no retractions, lungs are clear to auscultation. Cardiovascular: Regular rate and rhythm. Gastrointestinal: Abdomen is soft and nontender, no masses, bowel sounds normal. Neurological: Awake and alert, sensory and motor exams grossly normal. Skin: Warm and dry, no rashes. Musculoskeletal: Neck is supple nontender. Extremities symmetrical, full range of motion. Psychiatric: Patient is oriented X 3, there is no agitation. Constitutional: Initial Vital Signs Temperature (C) 36.4 C 07/10/16 17:41 Heart Rate 84 07/10/16 17:41 Respiratory Rate 18 07/10/16 17:41 Blood Pressure 124/76 H 07/10/16 17:41 O2 Sat (%) 97 07/10/16 17:41 O2 Delivery Mode Room Air Allergies/Adverse Reactions: diphenhydramine [From Benadryl] Allergy (Verified 07/10/16 18:31) "procedural sedation" Allergy (Uncoded 07/10/16 18:31) Home Medications: Medication Instructions Recorded Multivitamins [Multivitamin (*)] 1 tab PO DAILY 01/10/16 Simvastatin [Zocor] 10 mg PO HS 01/10/16 Spironolactone [Aldactone 25 MG 12.5 mg PO DAILY 01/10/16 (*)] metFORMIN HCL [Glucophage 500 mg 250 mg PO DAILY 01/10/16 (*)] Nitroglycerin [Nitrostat 0.4 mg 0.4 mg SL ONCE PRN #0 btl 01/11/16 (*)] Clopidogrel Bisulfate [Plavix (*)] 75 mg PO DAILY #30 tab 01/12/16 Nebivolol HCl [Bystolic 5 mg (*)] 2.5 mg PO DAILY 04/10/16 C/E/Zn/Cu/OM3/DHA/EPA/LUT/ZEAX 1 cap PO DAILY 05/12/16 [Preservision Areds 2 Softgel] Herbals/Supplements -Info Only 1 ea PO DAILY 05/12/16 Levothyroxine [Synthroid 50 mcg 50 mcg PO DAILY06 05/12/16 (*)] Lisinopril [Zestril 5 mg (*)] 5 mg PO DAILY 05/12/16 Furosemide [Lasix 40 MG (*)] 40 mg PO DAILY #30 tab 06/03/16 Tamsulosin HCl [Flomax 0.4 MG (*)] 0.4 mg PO DAILY #30 cap 06/03/16 Aspirin 325 mg (*) 07/10/16 Medical Decision Making - Diagnostics EKG Interpretation: erpreted by meShows a paced rhythm there is interventricular conduction delay. Inferior T-wave inversion. No significant ST elevation or depression. No arrhythmia. The rate is 86 There is not appear to be an acute change from previous EKGs Imaging Results: Imaging Impressions Chest X-Ray 07/10/16 18:20 Impression: 1. Mild congestive heart failure. 2. Pacemaker without pneumothorax. 3. Small bilateral pleural effusions with bilateral lower lobe atelectasis or pneumonitis. One-view chest x-ray interpreted by me consistent with congestive heart failure. Pacemaker present. There are bilateral pleural effusions Procedures: IV normal saline, monitor ED Course/Re-evaluation: Aspirin in the emergency department The I consulted and discussed case Dr. Newberry, hospitalist, who agrees to the admission I consulted and discussed case with Dr. Hall Differential Diagnosis: Elevated troponin in a man with near syncope and known heart disease. No ST elevation. Patient no longer has any chest discomfort. I also considered pneumonia and pneumothorax as well as arrhythmia and electrolyte abnormalities - Data Points Laboratory Results: Laboratory Results 07/10/16 18:12 07/10/16 18:12 07/10/16 07/10/16 18:12 18:12 WBC 10.58 10^3/uL H 10^3/uL (3.80-9.50) RBC 4.91 10^6/uL 10^6/uL (4.40-6.38) Hgb 13.8 g/dL g/dL (13.7-17.5) Hct 41.8 % % (40.0-51.0) MCV 85.1 fL fL (81.5-99.8) MCH 28.1 pg pg (27.9-34.1) MCHC 33.0 g/dL g/dL (32.4-36.7) RDW 17.5 % H % (11.5-15.2) Plt Count 179 10^3/uL 10^3/uL (150-400) MPV 11.9 fL H fL (8.7-11.7) Neut % (Auto) 74.8 % H % (39.3-74.2) Lymph % (Auto) 12.4 % L % (15.0-45.0) [place] % (Auto) 9.0 % % (4.5-13.0) Eos % (Auto) 2.7 % % (0.6-7.6) Baso % (Auto) 0.5 % % (0.3-1.7) Nucleat RBC Rel Count 0.0 % % (0.0-0.2) Absolute Neuts (auto) 7.92 10^3/uL H 10^3/uL (1.70-6.50) Absolute Lymphs (auto) 1.31 10^3/uL 10^3/uL (1.00-3.00) Absolute Monos (auto) 0.95 10^3/uL H 10^3/uL (0.30-0.80) Absolute Eos (auto) 0.29 10^3/uL 10^3/uL (0.03-0.40) Absolute Basos (auto) 0.05 10^3/uL 10^3/uL (0.02-0.10) Absolute Nucleated RBC 0.00 10^3/uL 10^3/uL (0-0.01) Immature Gran % 0.6 % % (0.0-1.1) Immature Gran # 0.06 10^3/uL 10^3/uL (0.00-0.10) Sodium 136 mEq/L mEq/L (134-144) Potassium 4.3 mEq/L mEq/L (3.5-5.2) Chloride 101 mEq/L mEq/L (97-110) Carbon Dioxide 22 mEq/l mEq/l (22-31) Anion Gap 13 mEq/L mEq/L (8-16) BUN 40 mg/dL H mg/dL (7-23) Creatinine 1.2 mg/dL mg/dL (0.7-1.3) Estimated GFR 58 Glucose 225 mg/dL H mg/dL (70-100) Calcium 9.5 mg/dL mg/dL (8.5-10.4) Total Bilirubin 1.6 mg/dL H mg/dL (0.1-1.4) AST 28 IU/L IU/L (17-59) ALT 44 IU/L IU/L (21-72) Alkaline Phosphatase 119 IU/L IU/L (38-126) Troponin I 0.279 ng/mL H ng/mL (0-0.034) NT-Pro-B Natriuret Pep 85626 pg/mL H pg/mL (0-450) Total Protein 7.0 g/dL g/dL (6.3-8.2) Albumin 4.0 g/dL g/dL (3.5-5.0) Medications Given: Discontinued Medications Aspirin (Aspirin) 324 mg PO EDNOW ONE Stop: 07/10/16 19:21 Last Admin: 07/10/16 19:26 Dose: 324 mg Furosemide (Lasix Injection) 20 mg IVP ONCE ONE Stop: 07/10/16 20:35 Last Admin: 07/10/16 21:26 Dose: 20 mg Departure - Departure Disposition: [facility] Inpatient Acute Clinical Impression: Near syncope, Elevated troponin Chest pain Qualifiers: Chest pain type: unspecified Qualified Code(s): R07.9 - Chest pain, unspecified Condition: Fair
[2016-07-10 18:34] LABS: % IMMATURE GRANULYOCYTES 0.6 % (0.0-1.1); ABSOLUTE IMMATURE GRANULOCYTES 0.06 10^3/uL (0.00-0.10); ADD DIFF? NO; ADD MORPH? NO; ADD SCAN? NO; ATYPICAL LYMPHOCYTE FLAG 20 (0-99); FRAGMENT RBC FLAG 0 (0-99); HEMATOCRIT 41.8 % (40.0-51.0); HEMOGLOBIN 13.8 g/dL (13.7-17.5); LEFT SHIFT FLG 0 (0-99); LIPEMIA HEMOLYSIS FLAG 80 (0-99); MEAN CELL HEMOGLOBIN 28.1 pg (27.9-34.1); MEAN CELL VOLUME 85.1 fL (81.5-99.8); MEAN PLATELET VOLUME 11.9 fL (8.7-11.7); PLATELET CLUMPS FLAG 20 (0-99); PLATELET COUNT 179 10^3/uL (150-400); RED BLOOD CELL COUNT 4.91 10^6/uL (4.40-6.38); RED CELL DISTRIBUTION WIDTH 17.5 % (11.5-15.2)
[2016-07-10 18:52] LABS: ALANINE AMINOTRANSFERASE 44 IU/L (21-72); ALKALINE PHOSPHATASE 119 IU/L (38-126); ANION GAP 13 mEq/L (8-16); ASPARTATE AMINOTRANSFERASE 28 IU/L (17-59); BILIRUBIN,TOTAL 1.6 mg/dL (0.1-1.4); CALCIUM 9.5 mg/dL (8.5-10.4); CARBON DIOXIDE 22 mEq/l (22-31); CHLORIDE 101 mEq/L (97-110); CREATININE 1.2 mg/dL (0.7-1.3); GLOMERULAR FILTRATION RATE 58; GLUCOSE 225 mg/dL (70-100); POTASSIUM 4.3 mEq/L (3.5-5.2); SODIUM 136 mEq/L (134-144)
[2016-07-10 19:02] LABS: TROPONIN I 0.279 ng/mL (0-0.034)
[2016-07-10] MEDS ORDERED: ASPIRIN 81 MG CHEWABLE TAB PO ONE (19:20)
[2016-07-10] MEDS ORDERED: FUROSEMIDE 20 MG/2 ML VIAL IVP ONE (20:34)
[2016-07-10] MEDS ORDERED: ACETAMINOPHEN 325 MG TAB PO PRN (20:35)
[2016-07-10] MEDS ORDERED: ONDANSETRON 4 MG/2 ML VIAL IVP PRN (20:35)
--- NOTE | 2016-07-10 20:59 | GHP ---
[f rep st] HISTORY AND PHYSICAL DATE OF ADMISSION: 07/10/2016 CHIEF COMPLAINT: Near-syncope. HISTORY OF PRESENT ILLNESS: This is an 85-year-old male, who was brought to the emergency [facility] by EMS after he had a near-syncopal episode at his primary care provider Dr. Matias's office [facility] today. Per report, the patient became lightheaded and almost passed out. He denied having any c hest pain to me. However, per report, he had some chest pain in the office that resolved. The david ent denies any fevers or chills. He denies any shortness of breath. He denies any nausea, vomiting , or abdominal pain. He has not had anything to eat today, since he said he just has not had time. PAST MEDICAL HISTORY: 1. Coronary artery disease with LAD stent placed in March 2016. 2. Pacemaker secondary to heart block. 3. Diabetes mellitus. 4. BPH. 5. Hospitalization in May of 2016 for acute decompensated congestive heart failure, with an eject ion fraction of 45% to 50%. 6. Pulmonary hypertension. HOME MEDICATIONS: Were reviewed. Refer to [employer] for details. ALLERGIES: Benadryl. SOCIAL HISTORY: He lives with his . He denies any alcohol, tobacco, or illicit drug use. FAMILY HISTORY: Reviewed and noncontributory. REVIEW OF SYSTEMS: A comprehensive 10-point review of systems was done and is negative except for a s mentioned in the HPI. PHYSICAL EXAMINATION: VITAL SIGNS: Blood pressure 129/91, pulse of 80, respiratory rate 21, O2 sat 99% on room air, temperature afebrile. GENERAL: No acute distress. HEAD: Normocephalic, atrauma tic. EYES: PERRLA. Sclerae anicteric. MOUTH: Moist mucous membranes. NECK: Supple. No lympha denopathy. CARDIOVASCULAR: S1, S2. No JVD. No lower extremity edema. PULMONARY: Lungs are hoa r. No wheezes, rales, or rhonchi. ABDOMEN: Soft, nontender, nondistended. No guarding or rebound tenderness. Normoactive bowel sounds. EXTREMITIES: No clubbing or cyanosis. NEURO: Cranial ner ves 2-12 grossly intact. No focal motor or sensory deficits. SKIN: Clear. No rashes. DIAGNOSTICS: WBC 10.58, hemoglobin 13.8, hematocrit 41.8, platelets 179. INR 1.28. Sodium 136, po tassium 4.3, chloride 101, CO2 22, BUN 40, creatinine 1.2, glucose 225, total bili 1.6. BNP elevate d at 10,200. Troponin was elevated at 0.279. EKG, which I visualized and personally interpreted, s hows an atrial-sensed, ventricular-paced rhythm at rate 86 beats per minute. There was no ST-segmen t elevations. There was some possible ST depression in the lateral leads. Chest x-ray, which I als o visualized and personally interpreted, is consistent with mild congestive heart failure and small bilateral pleural effusions, with bilateral lower lobe atelectasis or pneumonitis. ASSESSMENT: This is an 85-year-old male presenting with: 1. Presyncope, likely multifactorial due to below. 2. Elevated troponin concerning for acute coronary syndrome. 3. Acute on chronic combined heart failure, with elevated BNP and findings consistent with mild flu id overload on chest x-ray. 4. Prerenal azotemia. PLAN: 1. Admit to telemetry. 2. Discussed the case Dr. Gagan Darby to see the patient in consultation. 3. Cycle troponins. 4. Low-dose Lasix. /[id number]/MODL
[2016-07-11 04:50] LABS: % IMMATURE GRANULYOCYTES 0.3 % (0.0-1.1); ABSOLUTE IMMATURE GRANULOCYTES 0.02 10^3/uL (0.00-0.10); ADD DIFF? NO; ADD MORPH? NO; ADD SCAN? NO; ATYPICAL LYMPHOCYTE FLAG 10 (0-99); FRAGMENT RBC FLAG 0 (0-99); HEMOGLOBIN 13.5 g/dL (13.7-17.5); LEFT SHIFT FLG 0 (0-99); LIPEMIA HEMOLYSIS FLAG 80 (0-99); MEAN CELL HEMOGLOBIN 27.5 pg (27.9-34.1); MEAN CELL HEMOGLOBIN CONCENTR. 32.1 g/dL (32.4-36.7); MEAN CELL VOLUME 85.5 fL (81.5-99.8); MEAN PLATELET VOLUME 11.8 fL (8.7-11.7); PLATELET CLUMPS FLAG 0 (0-99); PLATELET COUNT 167 10^3/uL (150-400); RED BLOOD CELL COUNT 4.91 10^6/uL (4.40-6.38); RED CELL DISTRIBUTION WIDTH 17.6 % (11.5-15.2)
[2016-07-11 05:35] LABS: CALCIUM 9.4 mg/dL (8.5-10.4); CARBON DIOXIDE 24 mEq/l (22-31); CHLORIDE 102 mEq/L (97-110); CREATININE 1.3 mg/dL (0.7-1.3); GLOMERULAR FILTRATION RATE 53; GLUCOSE 262 mg/dL (70-100); SODIUM 138 mEq/L (134-144)
[2016-07-11 05:40] LABS: TROPONIN I 0.258 ng/mL (0-0.034)
[2016-07-11 06:17] LABS: ANION GAP 12 mEq/L (8-16); POTASSIUM 4.6 mEq/L (3.5-5.2)
--- NOTE | 2016-07-11 08:58 | PDCARCONS ---
Cardiology Consult Reason for Consult: presyncope and CHF Requesting Physician: Dr. Newberry History of Present Illness: 85 y/o M well-known to our practice with chronic diastolic CHF and multiple exacerbations, CAD s/p multivessel stenting within the past year, sick sinus syndrome with dual chamber PPM in place admitted with presyncopal episode +/- chest pain while at his PCP's office. He was brought via EMS. CXR shows mild bilateral pleural effusion (not new) and mild elevated troponins (not new, likely chronic). He has not complained of classic anginal symptoms in the past. His angiogram in December was precipitated by a syncopal episode with elevated troponin and his second angiogram was precipitated by abnormal nuclear imaging. The patient has been followed weekly in our office through the transitional care program. Due to language barrier I believe there have been compliance issues with medications but his states he has been taking all his usual prescribed doses. His is present in the room today. Clinically the patient has been stable however he continues to get paroxysmal tachypnea and chest pain that is exacerbated by change to the upright position. This has happened multiple times this morning and which I witnessed. He feels better in the supine position. His case has been described in depth with the hospitalist service. An echocardiogram is pending. History Information - Allergies/Home Medication List Allergies/Adverse Reactions: diphenhydramine [From Benadryl] Allergy (Verified 07/10/16 18:31) "procedural sedation" Allergy (Uncoded 07/10/16 18:31) Home Medications: Aspirin EC [Aspirin EC 325 mg (*)] 325 mg PO DAILY 07/10/16 [Last Taken Unknown] Clopidogrel Bisulfate [Plavix (*)] 75 mg PO DAILY 07/10/16 [Last Taken Unknown] Furosemide [Lasix 40 MG (*)] 40 mg PO BID 07/10/16 [Last Taken Unknown] Levothyroxine [Synthroid 50 mcg (*)] 50 mcg PO DAILY 07/10/16 [Last Taken Unknown] Lisinopril [Zestril 5 mg (*)] 5 mg PO DAILY 07/10/16 [Last Taken Unknown] Nebivolol HCl [Bystolic 5 mg (*)] 2.5 mg PO DAILY 07/10/16 [Last Taken Unknown] Nitroglycerin [Nitrostat 0.4 mg (*)] 0.4 mg SL AD PRN 07/10/16 [Last Taken Unknown] Simvastatin 5 mg PO HS 07/10/16 [Last Taken Unknown] Spironolactone [Aldactone 25 MG (*)] 12.5 mg PO DAILY 07/10/16 [Last Taken Unknown] Tamsulosin HCl [Flomax 0.4 MG (*)] 0.4 mg PO DAILY 07/10/16 [Last Taken Unknown] metFORMIN HCL [Metformin HCl] 250 mg PO DAILY 07/10/16 [Last Taken Unknown] - Social History Smoking Status: Never smoked Physical Exam Temp Pulse Resp BP Pulse Ox 36.6 C 88 18 129/89 H 97 07/11/16 08:00 07/11/16 08:00 07/11/16 08:00 07/11/16 08:00 07/11/16 08:00 O2 (L/minute) 2 Constitutional: no apparent distress, appears nourished, not in pain Cardiovascular: regular rate and rhythym, no murmur, rub, or gallop, JVD, No edema Peripheral Pulses: 1+: dorsalis-pedis (R), dorsalis-pedis (L) Respiratory: no respiratory distress, no rales or rhonchi, clear to auscultation Neurologic: CN II-XII Intact Psychiatric: interacting appropriately, not anxious, not encephalopathic, thought process linear Lab and Imaging 07/11/16 04:16 07/11/16 04:16 WBC 7.80 10^3/uL (3.80-9.50) 07/11/16 04:16 RBC 4.91 10^6/uL (4.40-6.38) 07/11/16 04:16 Hgb 13.5 g/dL (13.7-17.5) L 07/11/16 04:16 Hct 42.0 % (40.0-51.0) 07/11/16 04:16 MCV 85.5 fL (81.5-99.8) 07/11/16 04:16 MCH 27.5 pg (27.9-34.1) L 07/11/16 04:16 MCHC 32.1 g/dL (32.4-36.7) L 07/11/16 04:16 RDW 17.6 % (11.5-15.2) H 07/11/16 04:16 Plt Count 167 10^3/uL (150-400) 07/11/16 04:16 MPV 11.8 fL (8.7-11.7) H 07/11/16 04:16 Neut % (Auto) 64.0 % (39.3-74.2) 07/11/16 04:16 Lymph % (Auto) 21.0 % (15.0-45.0) 07/11/16 04:16 [place] % (Auto) 8.8 % (4.5-13.0) 07/11/16 04:16 Eos % (Auto) 5.3 % (0.6-7.6) 07/11/16 04:16 Baso % (Auto) 0.6 % (0.3-1.7) 07/11/16 04:16 Nucleat RBC Rel Count 0.0 % (0.0-0.2) 07/11/16 04:16 Absolute Neuts (auto) 4.99 10^3/uL (1.70-6.50) 07/11/16 04:16 Absolute Lymphs (auto) 1.64 10^3/uL (1.00-3.00) 07/11/16 04:16 Absolute Monos (auto) 0.69 10^3/uL (0.30-0.80) 07/11/16 04:16 Absolute Eos (auto) 0.41 10^3/uL (0.03-0.40) H 07/11/16 04:16 Absolute Basos (auto) 0.05 10^3/uL (0.02-0.10) 07/11/16 04:16 Absolute Nucleated RBC 0.00 10^3/uL (0-0.01) 07/11/16 04:16 Immature Gran % 0.3 % (0.0-1.1) 07/11/16 04:16 Immature Gran # 0.02 10^3/uL (0.00-0.10) 07/11/16 04:16 Sodium 138 mEq/L (134-144) 07/11/16 04:16 Potassium 4.6 mEq/L (3.5-5.2) 07/11/16 04:16 Chloride 102 mEq/L (97-110) 07/11/16 04:16 Carbon Dioxide 24 mEq/l (22-31) 07/11/16 04:16 Anion Gap 12 mEq/L (8-16) 07/11/16 04:16 BUN 42 mg/dL (7-23) H 07/11/16 04:16 Creatinine 1.3 mg/dL (0.7-1.3) 07/11/16 04:16 Estimated GFR 53 07/11/16 04:16 Glucose 262 mg/dL (70-100) H 07/11/16 04:16 Calcium 9.4 mg/dL (8.5-10.4) 07/11/16 04:16 Total Bilirubin 1.6 mg/dL (0.1-1.4) H 07/10/16 18:12 AST 28 IU/L (17-59) 07/10/16 18:12 ALT 44 IU/L (21-72) 07/10/16 18:12 Alkaline Phosphatase 119 IU/L (38-126) 07/10/16 18:12 Troponin I 0.258 ng/mL (0-0.034) H 07/11/16 04:16 NT-Pro-B Natriuret Pep 42476 pg/mL (0-450) H 07/10/16 18:12 Total Protein 7.0 g/dL (6.3-8.2) 07/10/16 18:12 Albumin 4.0 g/dL (3.5-5.0) 07/10/16 18:12 A/P Assessment: 1. Admit with presyncope and chest discomfort. 2. Paroxysmal tachypnea and chest pain, worse in the upright position 3. CAD s/p multiple coronary artery stenting procedures in the past year. On DAPT with aspirin and Plavix. 4. Chronic diastolic CHF with likely acute exacerbation. There are pleural effusions on CXR that have been present. It is quite difficult to determine fluid status in this patient as he exhibits signs and symptoms of CHF but is also prone to severe dehydration. His weight has been stable. 5. Mildly elevated troponin, chronic. Not thought to represent ACS at this time. 6. Adult failure to thrive. 7. Sick sinus syndrome with dual chamber pacemaker in place. A-paced v sensed. 8. Progressive cognitive decline and dementia. Plan: 1. Rule out pulmonary embolism with chest CTA today. 2. Echocardiogram pending. 3. Continue current medications. 4. We will continue to follow closely.
[2016-07-11] MEDS ORDERED: ASPIRIN EC 81 MG TAB PO SCH (09:00)
[2016-07-11] MEDS: TAMSULOSIN HCL 0.4 MG CAP PO SCH (11:12)
[2016-07-11] MEDS: CLOPIDOGREL BISULFATE 75 MG TAB PO SCH (11:12)
[2016-07-11] MEDS: LEVOTHYROXINE 50 MCG TAB PO SCH (11:12)
[2016-07-11] MEDS: ASPIRIN EC 325 MG TAB PO SCH ×2 (11:12→14:06)
[2016-07-11] MEDS: LISINOPRIL 5 MG TAB PO SCH (11:13)
[2016-07-11] MEDS: NEBIVOLOL HCL 5 MG TAB PO SCH (11:13)
[2016-07-11] MEDS: SPIRONOLACTONE 25 MG TAB PO SCH (11:13)
[2016-07-11] MEDS: ENOXAPARIN 40 MG/0.4 ML SYR SC SCH (11:14)
--- NOTE | 2016-07-11 12:21 | ECHO ---
[id number] + + [id number] : : [place] [id number] : : [phone] + + Adult Echocardiographic Report + + :Name: CHIOMA BOWENS Mehnaz Date: 07/11/2016 08:19 AM : : Hospital Admission Number: [id number] Location: 218: :: 1930 Gender: Male Height: 68 in : :Age: 85 yrs Race: WH Weight: 180 lb : :Reason For Study: Heart failure : : BSA: 2. 0 meters2 : :History: Pacer : + + MMode/2D Measurements \T\ Calculations IVSd: 1.4 cm LVIDd: 4.0 cm EDV(Teich): 70.0 ml MV Diam: 3.7 cm LVPWd: 1.1 cm Ao root diam: LVOT diam: 1.9 cmLVLd ap4: 7.6 cm SV(MOD-sp4): 3.2 cm LVOT area: EDV(MOD-sp4): 32.0 ml LA dimension: 2.7 cm2 77.0 ml 4.5 cm LVLs ap4: 7.5 cm ESV(MOD-sp4): 45.0 ml EF(MOD-sp4): 41.6 % Normal Measurement Values: + + :LVIDd (3.5-5.7cm) IVSd (0.6-1.1cm) LVPWd (0.6-1.1cm) Aortic Root (2.0-3.7cm)Left Atrium (1.5-4.0cm): :LV Vol(d) (76-115ml) LV Vol(s) (29-48ml) Ejec Fraction (50-65%)PV Epifanio (0.6- 1.2m/s) TV Epifanio (0.4-1.0m/s) : :MV E Epifanio (0.8-1.0m/s)MV A Epifanio (0.3-1.0m/s)LVOT Epifanio (0.7-1.2m/s) Asc Ao Epifanio ( 0.9-1.8m/s) : + + Doppler Measurements \T\ Calculations MV E max epifanio: MV V2 max: Ao mean PG: AI max epifanio: 94.3 cm/sec 95.0 cm/sec 1.5 mmHg 362.0 cm/sec MV A max epifanio: MV max P.6 mmHg Ao V2 mean: AI max P.4 mmHg 31.6 cm/sec MV V2 mean: 57.0 cm/sec AI dec slope: MV E/A: 3.0 55.3 cm/sec Ao V2 VTI: 261.5 cm/sec2 MV mean P.5 mmHg14.3 cm AI P1/2t: 405.4 msec MV V2 VTI: 17.0 cm KATHERINE(I,D): 1.3 cm2 MV area (1 diam): 10.6 cm2 MVA(VTI): 1.1 cm2 MV Flow area(1diam): 10.6 cm2 LV V1 mean PG: MR max epifanio: MR(RF 1 diam): SV(MV 1 diam): 0.46 mmHg 452.7 cm/sec 12.8 % 179.8 ml LV V1 mean: MR max P.0 mmHg SI(MV 1 diam): 31.8 cm/sec 92.0 ml/m2 LV V1 VTI: 6.7 cm SV(LVOT): 18.2 ml TR max epifanio: RF(MV,Ao)(1 diam): 303.1 cm/sec 0.35 TR max PG: RF(MV,LVOT)(1diam): 36.8 mmHg 0.90 RAP systole: 10.0 mmHg RVSP(TR): 46.8 mmHg Left Ventricle The left ventricle is normal in size. There is mild concentric left ventricular hypertrophy. There is Doppler evidence for diastolic dysfunction. EF estimate is 40%. There is moderate global hypokinesis of the left ventricle. Right Ventricle The right ventricle is normal in size and function. There is a pacemaker lead in the right ventricle. Atria The left atrium is moderate to severely dilated. The right atrium is moderate to severely dilated. The interatrial septum is intact with no evidence for an atrial septal defect. Mitral Valve There is mild mitral annular calcification. There is no evidence of mitral valve prolapse. There is no mitral valve stenosis. There is moderate mitral regurgitation. Tricuspid Valve Normal tricuspid valve. Right ventricular systolic pressure is 47-52mmHg. There is moderate to severe tricuspid regurgitation. There is Doppler evidence for mild pulmonary hypertension. Aortic Valve The aortic valve is trileaflet. The aortic valve opens well. Mild aortic calcification. There is no aortic stenosis. Mild aortic regurgitation. Pulmonic Valve The pulmonic valve is normal in structure and function. Trace pulmonic valvular regurgitation. Great Vessels The aortic root is normal size. Pericardium/Pleural There is no pericardial effusion. Left pleural effusion. Conclusion A complete two-dimensional transthoracic echocardiogram was performed (2D, M-mode, Doppler and color flow Doppler). The patient has a dilated IVC. Compared to the previous echo of 05/31, the amount of MR has increased, left pleural effusion present and RVSP has increased. There is mild concentric left ventricular hypertrophy. There is Doppler evidence for diastolic dysfunction. The patient has a dilated IVC. EF estimate is 40%. There is moderate global hypokinesis of the left ventricle. There is a pacemaker lead in the right ventricle. The left atrium is moderate to severely dilated. The right atrium is moderate to severely dilated. There is mild mitral annular calcification. There is moderate mitral regurgitation. There is moderate to severe tricuspid regurgitation. Right ventricular systolic pressure is 47-52mmHg. There is Doppler evidence for mild pulmonary hypertension. Mild aortic calcification. Mild aortic regurgitation. Trace pulmonic valvular regurgitation. Left pleural effusion. Myocardium appears speckled. Query amyloid. Final Reading Physician: Waqas Beltre signed on 07/11/2016 12:20 PM Ordering Physician: Bharath Newberry Performed By: Kate Walden, PARISACS
[2016-07-11] MEDS ORDERED: FUROSEMIDE 20 MG/2 ML VIAL IVP SCH (13:00)
[2016-07-11] MEDS: ASPIRIN EC 81 MG TAB PO SCH (14:16)
[2016-07-11] MEDS ORDERED: IOPAMIDOL (ISOVUE 370) 100 ML BTL IV ONE (14:57)
[2016-07-11] MEDS ORDERED: FUROSEMIDE 40 MG/4 ML VIAL IVP ONE (17:00)
[2016-07-11] MEDS ORDERED: D50W 25 GM/50 ML SYR IVP PRN (17:02)
--- NOTE | 2016-07-11 17:24 | HOSPPROG ---
Hospitalist Progress Note Assessment/Plan: * Acute on chronic CHF exacerbation - EF 45% -failure of outpatient therapy mostly related to poor care in the home -patient and his don't eat and don't take meds -IV lasix -discussed with daughter at length -palliative care consult to discuss goal of care with patient -previously stated he desired to " at home" -ST cognitive eval to assess patient's ability to make decisions for himself * Right pleural effusion -thoracentesis in am - may help SOB * CAD/stent LAD 04/02 -ASA, Plavix -chronic troponin elevation * SSS/PCM * DM II * Severe protein calorie malnutrition -dietary consult Daughter Dominga Subjective: no new complaints. Objective: Vital Signs Temp Pulse Resp BP Pulse Ox 36.6 C 104 H 18 123/92 H 95 07/11/16 11:55 07/11/16 11:55 07/11/16 11:55 07/11/16 11:55 07/11/16 11:55 Laboratory Results 07/11/16 04:16 07/11/16 04:16 07/10/16 07/11/16 07/12/16 05:59 05:59 05:59 Intake Total 420 Balance 420 case d/w Keith Woodard - cardiology CTA - no PE, moderate right effusion - Time Spent With Patient Time Spent with Patient: greater than 35 minutes Time Spent with Patient: Greater than 35 minutes spent on this patients care, greater than 50% of time spent counseling, educating, and coordinating care regarding the above mentioned plan. - Physical Exam Constitutional: no apparent distress, appears nourished, not in pain Cardiovascular: regular rate and rhythym, no murmur, rub, or gallop Respiratory: no respiratory distress, no rales or rhonchi, clear to auscultation Gastrointestinal: normoactive bowel sounds, soft, non-tender abdomen, no palpable masses Skin: no rashes or abrasions, no fluctuance, no induration Neurologic: AAOx3, sensation intact bilaterally Psychiatric: interacting appropriately, not anxious, not encephalopathic, thought process linear ICD10 Worksheet Patient Problems: Problems Problem Status Onset Chest pain Acute Elevated troponin Acute Near syncope Acute CHF (congestive heart failure) Acute Chronic Disease Mgmt/Transitoinal Care Acute Coronary artery disease Acute Essential (primary) hypertension Acute Hyperlipidemia Acute Pacemaker Acute S/P coronary artery stent placement Acute Weakness Acute
[2016-07-11] MEDS: INSULIN REGULAR HUMAN 100 UNIT/ML SC SCH ×2 (17:39→23:26)
[2016-07-11 18:29] LABS: LACTATE DEHYDROGENASE 480 IU/L (313-618)
[2016-07-11] MEDS: PRAVASTATIN SODIUM 10 MG TAB PO SCH (20:29)
[2016-07-11] MEDS ORDERED: SIMVASTATIN 5 MG PO SCH (21:00)
[2016-07-12 05:51] LABS: INR 1.42 (0.83-1.16); PROTIME(PATIENT) 17.3 SEC (12.0-15.0)
[2016-07-12 05:59] LABS: ALANINE AMINOTRANSFERASE 39 IU/L (21-72); ALBUMIN 3.2 g/dL (3.5-5.0); ALKALINE PHOSPHATASE 113 IU/L (38-126); ANION GAP 14 mEq/L (8-16); ASPARTATE AMINOTRANSFERASE 23 IU/L (17-59); BILIRUBIN,TOTAL 1.5 mg/dL (0.1-1.4); BILIRUBIN-CONJUGATED 0.7 mg/dL (0.0-0.5); BILIRUBIN-UNCONJUGATED 0.8 mg/dL (0.0-1.1); CARBON DIOXIDE 22 mEq/l (22-31); CHLORIDE 103 mEq/L (97-110); CREATININE 1.1 mg/dL (0.7-1.3); GLOMERULAR FILTRATION RATE > 60; GLUCOSE 90 mg/dL (70-100); SODIUM 139 mEq/L (134-144)
[2016-07-12] MEDS: INSULIN REGULAR HUMAN 100 UNIT/ML SC SCH ×4 (08:15→21:14)
--- NOTE | 2016-07-12 08:24 | PDCARPN ---
Cardiology Progress Note Chief Complaint: Pt is without complaint. Limited communication due to language barrier. No events on Telemetry. His weight is down 4Kg. Echo demonstrates LVEF 40-45% and moderate MR and severe TR which have progressed compared to previoius echo. Assessment/Plan: Assessment: 1. Chronic Diastolic CHF 2. Systolic CHF with LVEF 40% 3. Recurrent admissions for near syncope 4. Moderate MR 5. Severe TR with Moderate pulmonary hypertension 6. SSS sp Pacemaker 7. CAD with PCI on DAPT 8. Right Pleural effusion Plan: - right thoracentesis planned for today -agree with palliative care -I think he needs to be in assisted living to manage his medications and meals -continue current medications 07/12/16 08:22 07/12/16 08:24 Objective: Vital Signs (8 Hrs) Temp Pulse Resp BP Pulse Ox 07/12/16 02:58 36.6 C 109 H 16 130/93 H 90 L Intake/Output (24 Hrs) 07/11/16 07/12/16 07/13/16 05:59 05:59 05:59 Intake Total 420 850 Output Total 1750 Balance 420 -900 Intake: Oral (ml) 400 850 IV Intake (ml) 20 Output: Urine (ml) 1750 Diapers/Briefs 1600 Incontinence 150 Other: Weight 59.9 kg 55.6 kg Number of Voids Diapers/Briefs 2 Incontinence 3 4 Result Diagrams: 07/11/16 04:16 07/12/16 04:14 Cardiac Labs: Cardiac Lab Results (72 Hrs) 07/11/16 07/11/16 04:16 02:10 Troponin I 0.258 H 0.286 H - Physical Exam Constitutional: WDWN Cardiovascular: regular rate and rhythm Respiratory: reduced air movement Skin: no rashes Neurologic: AAOx3, CN II-XII grossly intact Psychiatric: cooperative, interactive ICD10 Worksheet Patient Problems: Problems Problem Status Onset Chest pain Acute Elevated troponin Acute Near syncope Acute CHF (congestive heart failure) Acute Chronic Disease Mgmt/Transitoinal Care Acute Coronary artery disease Acute Essential (primary) hypertension Acute Hyperlipidemia Acute Pacemaker Acute S/P coronary artery stent placement Acute Weakness Acute
[2016-07-12] MEDS ORDERED: NA BICARBONATE 50 MEQ/50 ML VIAL ONE (08:35)
[2016-07-12] MEDS ORDERED: FUROSEMIDE 20 MG/2 ML VIAL IVP SCH (09:00)
[2016-07-12] MEDS: TAMSULOSIN HCL 0.4 MG CAP PO SCH (10:13)
[2016-07-12] MEDS: LEVOTHYROXINE 50 MCG TAB PO SCH (10:13)
[2016-07-12] MEDS: NEBIVOLOL HCL 5 MG TAB PO SCH (10:13)
[2016-07-12] MEDS: SPIRONOLACTONE 25 MG TAB PO SCH (10:13)
[2016-07-12] MEDS: LISINOPRIL 5 MG TAB PO SCH (10:14)
[2016-07-12] MEDS: FUROSEMIDE 20 MG/2 ML VIAL IVP SCH ×2 (10:14→16:02)
[2016-07-12] MEDS: CLOPIDOGREL BISULFATE 75 MG TAB PO SCH (10:14)
[2016-07-12] MEDS: ASPIRIN EC 81 MG TAB PO SCH (10:14)
--- NOTE | 2016-07-12 13:25 | HOSPPROG ---
Hospitalist Progress Note Assessment/Plan: * Acute on chronic CHF exacerbation - EF 45% -failure of outpatient therapy mostly related to poor compliance -reports of Etoh, poor PO and inconsistent meds -continue IV lasix -palliative care consult - remains full cor * Right pleural effusion -no thoracentesis until off Plavix * CAD/stent LAD 04/02 -ASA, Plavix - hold for possible procedure -chronic troponin elevation * SSS/PCM * DM II * Severe protein calorie malnutrition -dietary consult Daughter Dominga Subjective: feeling better Objective: Vital Signs Temp Pulse Resp BP Pulse Ox 36.4 C 83 22 H 127/76 H 98 07/12/16 12:00 07/12/16 12:00 07/12/16 12:00 07/12/16 12:00 07/12/16 12:00 Laboratory Results 07/11/16 04:16 07/12/16 04:14 07/11/16 07/12/16 07/13/16 05:59 05:59 05:59 Intake Total 420 850 Output Total 1750 Balance 420 -900 PT 17.3 SEC (12.0-15.0) H 07/12/16 04:14 INR 1.42 (0.83-1.16) H 07/12/16 04:14 d/w Dr. Darby - feels issues are more social than cardiac tele reviewed - NSR - Physical Exam Constitutional: no apparent distress, appears nourished, not in pain Cardiovascular: regular rate and rhythym, no murmur, rub, or gallop Respiratory: no respiratory distress, no rales or rhonchi, clear to auscultation Gastrointestinal: normoactive bowel sounds, soft, non-tender abdomen, no palpable masses Skin: no rashes or abrasions, no fluctuance, no induration Neurologic: AAOx3, sensation intact bilaterally Psychiatric: interacting appropriately, not anxious, not encephalopathic, thought process linear ICD10 Worksheet Patient Problems: Problems Problem Status Onset Chest pain Acute Elevated troponin Acute Near syncope Acute CHF (congestive heart failure) Acute Chronic Disease Mgmt/Transitoinal Care Acute Coronary artery disease Acute Essential (primary) hypertension Acute Hyperlipidemia Acute Pacemaker Acute S/P coronary artery stent placement Acute Weakness Acute
--- NOTE | 2016-07-12 15:09 | PDPCPN ---
Palliative Care Progress Note Assessment/Plan: Referring provider: Dr Dobbins Reason for consult: Complex medical decision making Symptom control HPI: William Wallace is a 85 yo male with PMH diastolic CHF, pul HTN, CAD, SSS s/p pacemaker, DM, and BPH admitted to the hospital for pre syncopal event at his PCPs office. On admission CAR with bilateral pleural effusions and chronically elevated trop. Echo with EF 40%, mod mitral regurg, and severe tricuspid regurg with overall decline in function from previous echo. This is his 5th hospitalization in 6months and 3rd this year. Palliative care consulted for complex medical decision making. Spoke with Oneyda and patient at the bedside with the help of phone v[place] glost tile shader. Explained medical condition with congestion heart failure and multiple exacerbations over the past 6 months. William and Oneyda feel they are managing very well at home and do not want any additional help. William only wants his to help him at home and feels she takes very good care of him. We discussed natural course of CHF with periods of decline and periods of stability. William states while he prefers to be at home, if needed he would want to come back to the hospital. Discussed code status and William prefers to not live "on life support". Oneyda stated that she feels he wants everything done so "he can be healthy and run around again" and that if his heart were to stop we should "restart it again". William stated Oneyda is his medical power of senior attorney and feels at this point he wants life prolonging measures. They do not want to go to rehab but are still open to having [facility] see them at home to prevent re hospitalization as much as possible. Spoke with daughter Dominga over the phone and updated on the conversation. She has concerns with her parents feeling like they have enough support but maybe do not and that is why her father keeps getting readmitted. She has worries that they are resistant to help but are not able to support themselves as they once were being completely independent. She acknowledges their choice to choose to remain at home and is hopeful they will allow some additional help to avoid readmissions and keep William as stable as possible. Assessment: Physical: - Pain: chest pain at times - tylenol PRN - slow deep breathing when associated with dyspnea - Dyspnea: some at rest - on oxygen - can use a fan to help with dyspnea Emotional/psychological: has support from and daughter Advanced Care Planning: Is patient decisional?: Yes Code Status: Full MD POA: Oneyda is GINA. Plan: Prefers to be at home, especially at end of life. He still wants re hospitalization if needed and limited support at home. They are agreeable to [facility] and daughter is looking into private duty. Subjective: I feel ok Objective: Social History: to Oneyda. Born in [place]. Daughter Dominga involved but out of town. Medication list reviewed ROS: General: fatigue, weakness ENT: negative Resp: dyspnea GI: negative : negative MS: negative Skin: negative Neuro: negative Psych: negative Functional assessment: PPS: 60% Functional status: needs some assistance with ADLs. Vital Signs Temp Pulse Resp BP Pulse Ox 36.4 C 83 22 H 127/76 H 98 07/12/16 12:00 07/12/16 12:00 07/12/16 12:00 07/12/16 12:00 07/12/16 12:00 Laboratory Results 07/11/16 04:16 07/12/16 04:14 07/11/16 07/12/16 07/13/16 05:59 05:59 05:59 Intake Total 420 850 Output Total 1750 Balance 420 -900 PT 17.3 SEC (12.0-15.0) H 07/12/16 04:14 INR 1.42 (0.83-1.16) H 07/12/16 04:14 Physical Exam - Physical Exam General Appearance: alert, no apparent distress Respiratory: respiratory distress (mild), No accessory muscle use Skin: normal color, warm/dry Extremities: pedal edema (trace) Neuro/Psych: alert, oriented x 3 ICD10 Worksheet Patient Problems: Problems Problem Status Onset Chest pain Acute Elevated troponin Acute Near syncope Acute Palliative care encounter Acute CHF (congestive heart failure) Acute Chronic Disease Mgmt/Transitoinal Care Acute Coronary artery disease Acute Essential (primary) hypertension Acute Hyperlipidemia Acute Pacemaker Acute S/P coronary artery stent placement Acute Weakness Acute - ICD10 Problem Qualifiers (1) Palliative care encounter
[2016-07-12] MEDS: PRAVASTATIN SODIUM 10 MG TAB PO SCH (21:14)
[2016-07-13 04:20] LABS: ANION GAP 11 mEq/L (8-16); CALCIUM 9.1 mg/dL (8.5-10.4); CARBON DIOXIDE 21 mEq/l (22-31); CHLORIDE 104 mEq/L (97-110); CREATININE 1.1 mg/dL (0.7-1.3); GLOMERULAR FILTRATION RATE > 60; GLUCOSE 81 mg/dL (70-100); POTASSIUM 4.4 mEq/L (3.5-5.2); SODIUM 136 mEq/L (134-144)
[2016-07-13] MEDS: INSULIN REGULAR HUMAN 100 UNIT/ML SC SCH ×4 (07:09→21:03)
[2016-07-13] MEDS: FUROSEMIDE 20 MG/2 ML VIAL IVP SCH ×2 (09:22→14:39)
[2016-07-13] MEDS: LISINOPRIL 5 MG TAB PO SCH (09:22)
[2016-07-13] MEDS: TAMSULOSIN HCL 0.4 MG CAP PO SCH (09:22)
[2016-07-13] MEDS: SPIRONOLACTONE 25 MG TAB PO SCH (09:22)
[2016-07-13] MEDS: LEVOTHYROXINE 50 MCG TAB PO SCH (09:23)
[2016-07-13] MEDS: NEBIVOLOL HCL 5 MG TAB PO SCH (09:23)
[2016-07-13] MEDS ORDERED: LACTULOSE 20 GM/30 ML UDCUP PO PRN (10:40)
[2016-07-13] MEDS ORDERED: MAGNESIUM HYDROXIDE 30 ML UDCUP PO PRN (10:40)
[2016-07-13] MEDS ORDERED: POLYETHYLENE GLYCOL 3350 17 GM PKT PO PRN (10:40)
[2016-07-13] MEDS ORDERED: BISACODYL 10 MG SUPP PR PRN (10:40)
--- NOTE | 2016-07-13 16:13 | HOSPPROG ---
Hospitalist Progress Note Assessment/Plan: * Acute on chronic CHF exacerbation - EF 45% -failure of outpatient therapy mostly related to social situation -continue IV lasix * Right pleural effusion -consider thoracentesis Friday - holding Plavix * Acute respiratory failure - significant desat with ambulation -thoracentesis may help -suspect anxiety component to SOB as well * CAD/stent LAD 04/02 -ASA, Plavix - hold for possible procedure -chronic troponin elevation * SSS/PCM * Dementia -did very poorly on cognitive eval - score (with use of nail technician teacher phone) -discussed result with - seems to be some denial -advised that he may need closer monitoring at home given this finding * DM II * Severe protein-calorie malnutrition, underweight w/ BMI 18.85 -dietary consult Daughter Dominga Subjective: Still with episodes of sporadic SOB. Objective: Vital Signs Temp Pulse Resp BP Pulse Ox 36.4 C 72 20 110/75 97 07/13/16 12:00 07/13/16 12:00 07/13/16 12:00 07/13/16 12:00 07/13/16 12:00 Laboratory Results 07/11/16 04:16 07/13/16 03:55 07/12/16 07/13/16 07/14/16 05:59 05:59 05:59 Intake Total 850 550 Output Total 1750 Balance -900 550 PT 17.3 SEC (12.0-15.0) H 07/12/16 04:14 INR 1.42 (0.83-1.16) H 07/12/16 04:14 - Physical Exam Constitutional: no apparent distress, appears nourished, not in pain Cardiovascular: regular rate and rhythym, no murmur, rub, or gallop Respiratory: no respiratory distress, no rales or rhonchi, clear to auscultation Gastrointestinal: normoactive bowel sounds, soft, non-tender abdomen, no palpable masses Skin: no rashes or abrasions, no fluctuance, no induration Neurologic: AAOx3, sensation intact bilaterally Psychiatric: interacting appropriately, not anxious, not encephalopathic, thought process linear ICD10 Worksheet Patient Problems: Problems Problem Status Onset Chest pain Acute Elevated troponin Acute Near syncope Acute Palliative care encounter Acute CHF (congestive heart failure) Acute Chronic Disease Mgmt/Transitoinal Care Acute Coronary artery disease Acute Essential (primary) hypertension Acute Hyperlipidemia Acute Pacemaker Acute S/P coronary artery stent placement Acute Weakness Acute
[2016-07-13] MEDS: SENNOSIDES/DOCUSATE SODIUM TAB PO SCH (20:46)
[2016-07-13] MEDS: PRAVASTATIN SODIUM 10 MG TAB PO SCH (21:03)
[2016-07-14 03:59] LABS: ANION GAP 9 mEq/L (8-16); CALCIUM 8.9 mg/dL (8.5-10.4); CARBON DIOXIDE 26 mEq/l (22-31); CHLORIDE 100 mEq/L (97-110); CREATININE 1.2 mg/dL (0.7-1.3); GLOMERULAR FILTRATION RATE 58; GLUCOSE 84 mg/dL (70-100); POTASSIUM 4.5 mEq/L (3.5-5.2); SODIUM 135 mEq/L (134-144)
[2016-07-14] MEDS: FUROSEMIDE 20 MG/2 ML VIAL IVP SCH (08:03)
[2016-07-14] MEDS: TAMSULOSIN HCL 0.4 MG CAP PO SCH (08:03)
[2016-07-14] MEDS: NEBIVOLOL HCL 5 MG TAB PO SCH (08:04)
[2016-07-14] MEDS: SENNOSIDES/DOCUSATE SODIUM TAB PO SCH ×2 (08:05→20:57)
[2016-07-14] MEDS: LISINOPRIL 5 MG TAB PO SCH (08:06)
[2016-07-14] MEDS: SPIRONOLACTONE 25 MG TAB PO SCH (08:06)
[2016-07-14] MEDS: ENOXAPARIN 40 MG/0.4 ML SYR SC SCH (08:07)
[2016-07-14] MEDS: INSULIN REGULAR HUMAN 100 UNIT/ML SC SCH ×4 (08:07→21:58)
[2016-07-14] MEDS: LEVOTHYROXINE 50 MCG TAB PO SCH (08:08)
[2016-07-14 12:55] LABS: LACTATE DEHYDROGENASE 533 IU/L (313-618)
[2016-07-14] MEDS ORDERED: FUROSEMIDE 20 MG/2 ML VIAL IVP SCH ×2 (14:00→15:00)
--- NOTE | 2016-07-14 14:41 | HOSPPROG ---
Hospitalist Progress Note Assessment/Plan: * Acute on chronic CHF exacerbation - EF 45% -failure of outpatient therapy mostly related to social situation -continue IV lasix * Right pleural effusion -thoracentesis tomorrow -hold been maximally diuresed with ongoing effusion present * Acute respiratory failure - significant desat with ambulation -thoracentesis may help -suspect anxiety component to SOB as well * CAD/stent LAD 04/02 -ASA, Plavix - hold for possible procedure -chronic troponin elevation * SSS/PCM * Dementia -did very poorly on cognitive eval - score (with use of campus supervisor phone) -discussed result with - seems to be some denial -advised that he may need closer monitoring at home given this finding * Metabolic encephalopathy - improved * DM II * Severe protein-calorie malnutrition, underweight w/ BMI 18.85 -dietary consult Daughter Dominga Subjective: Still very SOB with ambulation. Less confused today Objective: Vital Signs Temp Pulse Resp BP Pulse Ox 36.4 C 73 15 95/59 L 96 07/14/16 11:10 07/14/16 11:10 07/14/16 11:10 07/14/16 11:10 07/14/16 11:10 Laboratory Results 07/11/16 04:16 07/14/16 03:33 07/13/16 07/14/16 07/15/16 05:59 05:59 05:59 Intake Total 550 320 90 Output Total 700 Balance 550 -380 90 PT 17.3 SEC (12.0-15.0) H 07/12/16 04:14 INR 1.42 (0.83-1.16) H 07/12/16 04:14 CXR viewed, my personal interpretation is - increased right pleural effusion tele reviewed - paced rhythm - Physical Exam Constitutional: no apparent distress, appears nourished, not in pain Cardiovascular: regular rate and rhythym, no murmur, rub, or gallop Respiratory: no respiratory distress, no rales or rhonchi, clear to auscultation Gastrointestinal: normoactive bowel sounds, soft, non-tender abdomen, no palpable masses Skin: no rashes or abrasions, no fluctuance, no induration Psychiatric: interacting appropriately, not anxious, not encephalopathic, thought process linear, poor insight, poor judgement, poor memory, No agitated ICD10 Worksheet Patient Problems: Problems Problem Status Onset Chest pain Acute Elevated troponin Acute Near syncope Acute Palliative care encounter Acute CHF (congestive heart failure) Acute Chronic Disease Mgmt/Transitoinal Care Acute Coronary artery disease Acute Essential (primary) hypertension Acute Hyperlipidemia Acute Pacemaker Acute S/P coronary artery stent placement Acute Weakness Acute
[2016-07-14] MEDS: FUROSEMIDE 40 MG TAB PO SCH (17:26)
[2016-07-14] MEDS: PRAVASTATIN SODIUM 10 MG TAB PO SCH (20:12)
[2016-07-15 05:05] LABS: ANION GAP 8 mEq/L (8-16); CALCIUM 8.9 mg/dL (8.5-10.4); CARBON DIOXIDE 26 mEq/l (22-31); CHLORIDE 100 mEq/L (97-110); CREATININE 1.2 mg/dL (0.7-1.3); GLOMERULAR FILTRATION RATE 58; GLUCOSE 100 mg/dL (70-100); POTASSIUM 4.2 mEq/L (3.5-5.2); SODIUM 134 mEq/L (134-144)
[2016-07-15] MEDS: INSULIN REGULAR HUMAN 100 UNIT/ML SC SCH ×4 (08:14→23:51)
[2016-07-15] MEDS ORDERED: NA BICARBONATE 50 MEQ/50 ML VIAL ONE (09:20)
[2016-07-15] MEDS: SENNOSIDES/DOCUSATE SODIUM TAB PO SCH ×2 (10:02→19:53)
[2016-07-15] MEDS: TAMSULOSIN HCL 0.4 MG CAP PO SCH (10:50)
[2016-07-15] MEDS: metFORMIN HCL 500 MG TAB PO SCH (10:50)
[2016-07-15] MEDS: LISINOPRIL 5 MG TAB PO SCH (10:50)
[2016-07-15] MEDS: NEBIVOLOL HCL 5 MG TAB PO SCH (10:50)
[2016-07-15] MEDS: FUROSEMIDE 40 MG TAB PO SCH ×2 (10:51→15:40)
[2016-07-15] MEDS: LEVOTHYROXINE 50 MCG TAB PO SCH (10:51)
[2016-07-15] MEDS: SPIRONOLACTONE 25 MG TAB PO SCH (10:51)
[2016-07-15 12:06] LABS: LD, PLEURAL FLUID 235 IU/L
--- NOTE | 2016-07-15 15:30 | HOSPPROG ---
Hospitalist Progress Note Assessment/Plan: * Acute on chronic CHF exacerbation - EF 45% -failure of outpatient therapy mostly related to social situation * Right pleural effusion -s/p thoracentesis 700cc - likely transudative -maximally diuresed with ongoing effusion present -hopefully will help respiratory status * Acute respiratory failure - significant desat with ambulation -suspect anxiety component to SOB as well * CAD/stent LAD 04/02 -ASA, Plavix - resume -chronic troponin elevation * SSS/PCM * Dementia -did very poorly on cognitive eval - score (with use of full time staff interpreter phone) -discussed result with - seems to be some denial -advised that he may need closer monitoring at home given this finding * Metabolic encephalopathy - improved * DM II * Severe protein-calorie malnutrition, underweight w/ BMI 18.85 -dietary consult Daughter Dominga Subjective: no new complaints. Objective: Vital Signs Temp Pulse Resp BP Pulse Ox 36.3 C 78 18 105/72 97 07/15/16 15:05 07/15/16 15:05 07/15/16 15:05 07/15/16 15:05 07/15/16 15:05 Microbiology 07/15/16 10:36 Gram Stain - Final Thoracic Fluid - Aspirate Laboratory Results 07/11/16 04:16 07/15/16 03:25 07/14/16 07/15/16 07/16/16 05:59 05:59 05:59 Intake Total 320 490 Output Total 700 104 Balance -380 386 PT 17.3 SEC (12.0-15.0) H 07/12/16 04:14 INR 1.42 (0.83-1.16) H 07/12/16 04:14 CXR viewed, my personal interpretation is - complete resolution of right effusion tele reviewed - paced rhythm - Physical Exam Ears, Nose, Mouth, Throat: hearing normal Cardiovascular: regular rate and rhythym, no murmur, rub, or gallop Respiratory: no respiratory distress, no rales or rhonchi, clear to auscultation Gastrointestinal: normoactive bowel sounds, soft, non-tender abdomen, no palpable masses Skin: no rashes or abrasions, no fluctuance, no induration Neurologic: AAOx3, sensation intact bilaterally Psychiatric: interacting appropriately, not anxious, not encephalopathic, thought process linear ICD10 Worksheet Patient Problems: Problems Problem Status Onset Chest pain Acute Chronic Disease Mgmt/Transitional Care Acute Elevated troponin Acute Near syncope Acute Palliative care encounter Acute CHF (congestive heart failure) Acute Chronic Disease Mgmt/Transitoinal Care Acute Coronary artery disease Acute Essential (primary) hypertension Acute Hyperlipidemia Acute Pacemaker Acute S/P coronary artery stent placement Acute Weakness Acute
[2016-07-15] MEDS: PRAVASTATIN SODIUM 10 MG TAB PO SCH (19:51)
[2016-07-16 04:10] VITALS: RESP 18
[2016-07-16 04:53] LABS: CALCIUM 8.9 mg/dL (8.5-10.4); CARBON DIOXIDE 24 mEq/l (22-31); CHLORIDE 101 mEq/L (97-110); CREATININE 1.1 mg/dL (0.7-1.3); GLOMERULAR FILTRATION RATE > 60; GLUCOSE 98 mg/dL (70-100); LACTATE DEHYDROGENASE 592 IU/L (313-618); SODIUM 138 mEq/L (134-144)
[2016-07-16 04:56] LABS: ANION GAP 13 mEq/L (8-16); POTASSIUM 4.4 mEq/L (3.5-5.2)
[2016-07-16 07:27] VITALS: TEMP 98
[2016-07-16] MEDS: INSULIN REGULAR HUMAN 100 UNIT/ML SC SCH ×2 (08:34→11:42)
[2016-07-16] MEDS: SPIRONOLACTONE 25 MG TAB PO SCH (08:55)
[2016-07-16] MEDS: CLOPIDOGREL BISULFATE 75 MG TAB PO SCH (08:55)
[2016-07-16] MEDS: LISINOPRIL 5 MG TAB PO SCH (08:55)
[2016-07-16] MEDS: LEVOTHYROXINE 50 MCG TAB PO SCH (08:55)
[2016-07-16] MEDS: FUROSEMIDE 40 MG TAB PO SCH (08:55)
[2016-07-16] MEDS: TAMSULOSIN HCL 0.4 MG CAP PO SCH (08:55)
[2016-07-16] MEDS: ASPIRIN EC 81 MG TAB PO SCH (08:56)
[2016-07-16] MEDS: ENOXAPARIN 40 MG/0.4 ML SYR SC SCH (08:56)
[2016-07-16] MEDS: metFORMIN HCL 500 MG TAB PO SCH (08:56)
[2016-07-16] MEDS: NEBIVOLOL HCL 5 MG TAB PO SCH (08:56)
[2016-07-16] MEDS: SENNOSIDES/DOCUSATE SODIUM TAB PO SCH (08:57)
--- NOTE | 2016-07-16 09:05 | PDIAF ---
- Diagnosis Diagnosis: CHF exacerbation Code Status: Full Code - Medication Management Discharge Medications: Medications to Continue on Transfer Aspirin EC [Aspirin EC 325 mg (*)] 325 mg PO DAILY 07/10/16 [Last Taken Unknown] Clopidogrel Bisulfate [Plavix (*)] 75 mg PO DAILY 07/10/16 [Last Taken Unknown] Furosemide [Lasix 40 MG (*)] 40 mg PO BID 07/10/16 [Last Taken Unknown] Levothyroxine [Synthroid 50 mcg (*)] 50 mcg PO DAILY 07/10/16 [Last Taken Unknown] Lisinopril [Zestril 5 mg (*)] 5 mg PO DAILY 07/10/16 [Last Taken Unknown] Nebivolol HCl [Bystolic 5 mg (*)] 2.5 mg PO DAILY 07/10/16 [Last Taken Unknown] Nitroglycerin [Nitrostat 0.4 mg (*)] 0.4 mg SL AD PRN 07/10/16 [Last Taken Unknown] Simvastatin 5 mg PO HS 07/10/16 [Last Taken Unknown] Tamsulosin HCl [Flomax 0.4 MG (*)] 0.4 mg PO DAILY 07/10/16 [Last Taken Unknown] metFORMIN HCL [Metformin HCl] 250 mg PO DAILY 07/10/16 [Last Taken Unknown] Spironolactone [Aldactone 25 MG (*)] 25 mg PO DAILY #30 tab 07/16/16 [Last Taken Unknown] Discharge Medications: Refer to the Discharge Home Medication list for PRN reason. - Orders Services needed: Physical Therapy, Occupational Therapy, Speech Language Pathologist (cognition) Diet Recommendation: sodium restricted Weigh Patient: daily Additional: If weight is increasing, contact MD for Lasix increase (Dr. Darby) - Follow Up Care Current Providers and Referrals: Patient,NotPresent [Unknown] - As per Instructions Gagan Darby MD [Medical Doctor] -
[2016-07-16 11:19] VITALS: BP 119/70; PULSE 91; O2SAT 97
--- NOTE | 2016-07-17 04:31 | GDS ---
[f rep st] DISCHARGE SUMMARY DISCHARGE DIAGNOSES: 1. Acute on chronic systolic congestive heart failure with ejection fraction 45%. 2. Transudative right pleural effusion, status post thoracentesis. 3. Acute respiratory failure. 4. Coronary artery disease, status post stent to the LAD in March with chronic troponin elevation . 5. Sick sinus syndrome with pacemaker. 6. Possible dementia. 7. Metabolic encephalopathy. 8. Diabetes type 2. 9. Severe protein-calorie malnutrition, underweight, with a BMI of 18.8. HISTORY: The patient is an 85-year-old male with multiple frequent readmissions for congestive hear t failure exacerbation. Cardiology feels that this outpatient failure is mostly due to his social s ituation rather than difficult to control CHF. I worked extensively with the patient's and his daughter to try to identify things that may be causing the situation. We did do a cognitive evalua tion with Speech Therapy and the patient did very poorly, so he may have an underlying dementia. Th e is in some denial, but she was encouraged regarding her need to watch him more closely at [facility]. A significant right pleural effusion that did not respond to diuresis. He underwent thoracentesis a nd 700 cc of fluid was removed. It was transudative. Hopefully, this will help his respiratory sta tus. DISCHARGE MEDICATIONS: Please see computer record for full detailed list. New medications: Spiron olactone increased to 25 mg p.o. daily. Lasix continued at 40 mg p.o. daily. Aspirin and Plavix co ntinued. ADDITIONAL DISCHARGE INSTRUCTIONS: 1. Patient discharging to [facility] for rehabilitation prior to returning home. 2. Follow up with Dr. Gagan Darby as an outpatient for close outpatient CHF monitoring. 3. Daily weights at the retirement facility and instructions to contact Dr. Darby for any signi ficant increase in weight. Greater than 30 minutes' time was spent arranging this discharge. Patient was seen and examined by me on the day of discharge. /[id number]/MODL
== END 2016-07-16 13:49 | DRG 291 ==
LOC: EDUNIT# → F2W 20:45
PROVIDERS: ADMIT Family Medicine; ATTEND Internal Medicine
PROC: 0W993ZX Drainage of Right Pleural Cavity, Percutaneous Approach, Diagnostic (ICD-10-PCS; principal; 2016-07-15)
DX: I50.23 Acute on chronic systolic (congestive) heart failure (principal); J90 Pleural effusion, not elsewhere classified; E43 Unspecified severe protein-calorie malnutrition; I25.10 Atherosclerotic heart disease of native coronary artery without angina pectoris; E11.9 Type 2 diabetes mellitus without complications; J96.00 Acute respiratory failure, unspecified whether with hypoxia or hypercapnia; I49.5 Sick sinus syndrome; I10 Essential (primary) hypertension; N40.0 Benign prostatic hyperplasia without lower urinary tract symptoms; Z68.1 Body mass index [BMI] 19.9 or less, adult; Z95.0 Presence of cardiac pacemaker; Z51.5 Encounter for palliative care; Z95.5 Presence of coronary angioplasty implant and graft; Z79.82 Long term (current) use of aspirin
CPT/HCPCS: 92507-GN; 92523-GN; 97116-GP; 97161-GP; 97166-GO; 97530-GO; 97535-GO; G8978-GP-CK; G8979-GP-CI; G8987-GO-CK; G8988-GO-CI; G9168-GN-CL; G9169-GN-CL; J1650; J1815; Q9967

== ENCOUNTER 2016-07-30 12:02 | Inpatient (IN) | payer OTHER, MEDICARE ==
--- NOTE | 2016-07-30 12:28 | EDPHY ---
H & P Stated Complaint: increasing SOB Source: Patient, Family, Enrollment Services Dean - Medical/Surgical History Hx Asthma: No Hx Chronic Respiratory Disease: No Hx Diabetes: Yes Hx Cardiac Disease: Yes Hx Renal Disease: No Hx Cirrhosis: No Hx Alcoholism: No Hx HIV/AIDS: No Hx Splenectomy or Spleen Trauma: No Other PMH: CAD with stents, HTN, hyperlipidemia, 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 intollerence to benadryl/procedural sedation - Social History Smoking Status: Never smoked HPI/ROS: CHIEF COMPLAINT: Shortness of breath HISTORY OF PRESENT ILLNESS: Patient arrives from [facility] by EMS with reports of shortness of breath. He is currently residing in [facility]. Shortness of breath has been present for several days. Gradual onset. Constant duration. This is actually exacerbation and ongoing, chronic shortness of breath. He has no chest pain of any kind. He has no fever. He has been coughing. No abdominal urinary complaints. His spouse reports that while at the doctor's office today she had difficulty understanding his words. This was very brief, lasting less than 2 minutes. This has spontaneously resolved. He had no headache during this. He had no facial droop. He had no unilateral weakness or sensory complaints. He has no predictable modifying factors for this other than orthopnea. He has a history of CHF, dementia and ongoing workup for shortness of breath. Patient is Irish-speaking only, and all information was obtained with the certified language line. REVIEW OF SYSTEMS: Ten systems reviewed and are negative unless otherwise noted in the HPI PERTINENT MEDICAL HISTORY: Reviewed EXAMINATION General Appearance: Alert, no distress Head: normocephalic, atraumatic Eyes: Pupils equal and round, no conjunctival pallor or injection. EOMs intact. ENT, Mouth: Mucous membranes moist. Uvula midline. Neck: Normal inspection, supple, non-tender. Painless range of motion. Kyphotic appearance. Respiratory: Mild rhonchi. No crackles. Diminishment in the bases, right greater than left. No retractions. Mild tachypnea. Cardiovascular: Regular rate. Murmur. Pulses intact distally. Gastrointestinal: Abdomen is soft and nontender Back: non-tender, no bony abnormalities Neurological: A&O, GCS 15. No facial droop. nonfocal, strength is symmetric in all 4 limbs of 4-5. No pronator drift. No dysmetria. NIH stroke scale 0. Skin: Warm and dry, no rash. Multiple H Maeve. No lacerations, abrasions or contusions. Extremities: Nontender, no pedal edema Psychiatric: Mood and affect normal DIFFERENTIAL DIAGNOSES: Including but not limited to CHF exacerbation, pneumonia, bronchitis, shortness of breath, TIA, CVA MDM: 12:24 p.m. Shortness of breath with possible TIA type symptoms. Difficult to really ascertain this. Patient is awake, alert and conversing appropriately at this time. He does have shortness of breath but his vital signs are all within normal limits. Cardiac labs, EKG, chest x-ray are pending at this time. I have also ordered a CT scan of the head plain. He is in no acute distress and does not need supplemental oxygen or abducts at this time 1:05 p.m. Notified by radiologist Dr. Bess. CT scan of the head reveals no acute findings. There are old small vessel ischemic changes. 1:15 p.m. BNP is elevated, troponin is chronically elevated consistent with previous. Chest x-ray is consistent with failure. There is a right pleural effusion that is somewhat enlarged from previous. There is a left, chronic stable effusion. No ulises pulmonary edema. His vital signs remained stable with oxygenation ranging from 90-94% on room air. Given the significant elevation of the BNP, pleural effusion and the possibility of TIA I will proceed with admission to the hospital. The patient's spouse are comfortable with this plan. 1:29 p.m. I discussed the case with hospitalist Caity Wilson. I informed her of the exacerbation of CHF, the TIA symptoms, the elevated troponin, elevated BNP. I informed the patient is hemodynamically stable, not requiring supplemental oxygen or BiPAP at this time. Patient has been accepted to Dr. Rosangela Mantilla. Caity has requested a PCU bed. He is admitted in stable condition. He currently has nitro paste applied with normal blood pressure. Patient is not a tPA candidate as he exhibits signs of TIA and no evidence of tPA. His symptoms have resolved prior to arrival. SUPERVISION: This patient was independently evaluated without direct examination by the attending physician. Case was discussed with attending physician. Case discussed with Dr. Serrato ([email or web address]) Constitutional: Initial Vital Signs Temperature (C) 36.1 C 07/30/16 12:02 Heart Rate 79 07/30/16 12:02 Respiratory Rate 18 07/30/16 12:02 Blood Pressure 129/88 H 07/30/16 12:02 O2 Sat (%) 96 07/30/16 12:02 O2 Delivery Mode Room Air Allergies/Adverse Reactions: diphenhydramine [From Benadryl] Allergy (Verified 07/10/16 18:31) "procedural sedation" Allergy (Uncoded 07/10/16 18:31) Home Medications: Medication Instructions Recorded Aspirin EC [Aspirin EC 325 mg (*)] 325 mg PO DAILY 07/10/16 Clopidogrel Bisulfate [Plavix (*)] 75 mg PO DAILY 07/10/16 Furosemide [Lasix 40 MG (*)] 40 mg PO BID 07/10/16 Levothyroxine [Synthroid 50 mcg 50 mcg PO DAILY 07/10/16 (*)] Lisinopril [Zestril 5 mg (*)] 5 mg PO DAILY 07/10/16 Nebivolol HCl [Bystolic 5 mg (*)] 2.5 mg PO DAILY 07/10/16 Nitroglycerin [Nitrostat 0.4 mg 0.4 mg SL AD PRN 07/10/16 (*)] Simvastatin 5 mg PO HS 07/10/16 Tamsulosin HCl [Flomax 0.4 MG (*)] 0.4 mg PO DAILY 07/10/16 Spironolactone [Aldactone 25 MG 25 mg PO DAILY #30 tab 07/16/16 (*)] C/E/Zn/Cu/OM3/DHA/EPA/LUT/ZEAX 1 each PO BID 07/30/16 [Preservision Areds 2 Softgel] MIRTAZAPINE [Remeron 7.5 mg] 7.5 mg PO HS 07/30/16 metFORMIN HCL [Glucophage 500 mg 500 mg PO BIDMEAL 07/30/16 (*)] Medical Decision Making - Diagnostics Imaging Results: Imaging Impressions Chest X-Ray 07/30/16 12:22 Impression: Cardiomegaly with increased right and stable left pleural effusion with associated atelectasis, without ulises pulmonary edema. Head CT 07/30/16 12:22 Impression: 1. No evidence for acute cardiopulmonary abnormality. 2. Significant white matter change that can be seen with small vessel ischemic disease, stable in appearance. No evidence for acute infarct. 3. Evidence of chronic lacunar infarcts in the basal ganglia bilaterally, stable in appearance. 4. Generalized cerebral atrophy. Results called and discussed with Jhon Warner on 07/30/2016, 1309 hours. Other Provider: PHYSICIAN DOCUMENTATION: The patient was evaluated and managed by the Physician Interlacer. My co- signature indicates that I have reviewed this chart and I agree with the findings and plan of care as documented. I am the secondary supervising physician. (Adam Serrato) - Data Points Laboratory Results: Laboratory Results 07/30/16 12:27 07/30/16 12:27 07/30/16 07/30/16 07/30/16 12:27 12:27 12:27 WBC 9.75 10^3/uL H 10^3/uL (3.80-9.50) RBC 5.23 10^6/uL 10^6/uL (4.40-6.38) Hgb 14.0 g/dL g/dL (13.7-17.5) Hct 43.6 % % (40.0-51.0) MCV 83.4 fL fL (81.5-99.8) MCH 26.8 pg L pg (27.9-34.1) MCHC 32.1 g/dL L g/dL (32.4-36.7) RDW 18.1 % H % (11.5-15.2) Plt Count 240 10^3/uL 10^3/uL (150-400) MPV 10.9 fL fL (8.7-11.7) Neut % (Auto) 64.0 % % (39.3-74.2) Lymph % (Auto) 16.2 % % (15.0-45.0) [place] % (Auto) 8.4 % % (4.5-13.0) Eos % (Auto) 10.2 % H % (0.6-7.6) Baso % (Auto) 0.9 % % (0.3-1.7) Nucleat RBC Rel Count 0.0 % % (0.0-0.2) Absolute Neuts (auto) 6.24 10^3/uL 10^3/uL (1.70-6.50) Absolute Lymphs (auto) 1.58 10^3/uL 10^3/uL (1.00-3.00) Absolute Monos (auto) 0.82 10^3/uL H 10^3/uL (0.30-0.80) Absolute Eos (auto) 0.99 10^3/uL H 10^3/uL (0.03-0.40) Absolute Basos (auto) 0.09 10^3/uL 10^3/uL (0.02-0.10) Absolute Nucleated RBC 0.00 10^3/uL 10^3/uL (0-0.01) Immature Gran % 0.3 % % (0.0-1.1) Immature Gran # 0.03 10^3/uL 10^3/uL (0.00-0.10) PT 16.1 SEC H SEC (12.0-15.0) INR 1.29 H (0.83-1.16) APTT 27.3 SEC SEC (23.0-38.0) Sodium 138 mEq/L mEq/L (134-144) Potassium 4.7 mEq/L mEq/L (3.5-5.2) Chloride 101 mEq/L mEq/L (97-110) Carbon Dioxide 21 mEq/l L mEq/l (22-31) Anion Gap 16 mEq/L mEq/L (8-16) BUN 48 mg/dL H mg/dL (7-23) Creatinine 1.3 mg/dL mg/dL (0.7-1.3) Estimated GFR 53 Glucose 217 mg/dL H mg/dL (70-100) Calcium 9.7 mg/dL mg/dL (8.5-10.4) Troponin I 0.174 ng/mL H ng/mL (0-0.034) NT-Pro-B Natriuret Pep 86293 pg/mL H pg/mL (0-450) Lipase 202.0 IU/L IU/L (23-300) Medications Given: Discontinued Medications Nitroglycerin (Nitro-Bid 2%) 0.5 inch TP EDNOW ONE Stop: 07/30/16 13:13 Last Admin: 07/30/16 13:27 Dose: 0.5 inch Departure - Departure Disposition: [facility] Acute Clinical Impression: Elevated troponin Acute exacerbation of congestive heart failure Qualifiers: Congestive heart failure type: combined Qualified Code(s): I50.43 - Acute on chronic combined systolic (congestive) and diastolic (congestive) heart failure TIA (transient ischemic attack) Qualifiers: Transient cerebral ischemia type: unspecified Qualified Code(s): G45.9 - Transient cerebral ischemic attack, unspecified Diabetes mellitus with hyperglycemia Qualifiers: Diabetes mellitus type: type 2 Diabetes mellitus senior care insulin use: unspecified exterminator termite insulin use status Qualified Code(s): E11.65 - Type 2 diabetes mellitus with hyperglycemia Condition: Good
--- NOTE | 2016-07-30 12:33 | CPEKG ---
Heart Rate: 79 RR Interval: 759 P-R Interval: 184 QRSD Interval: 142 QT Interval: 432 QTC Interval: 496 P [place]: 94 QRS [place]: 105 T Wave [place]: -86 EKG Severity - ABNORMAL ECG - EKG Impression: ATRIAL-SENSED VENTRICULAR-PACED RHYTHM Electronically Signed By: Adam Serrato 30-Jul-2016 13:09:07
[2016-07-30 12:35] LABS: % IMMATURE GRANULYOCYTES 0.3 % (0.0-1.1); ABSOLUTE IMMATURE GRANULOCYTES 0.03 10^3/uL (0.00-0.10); ADD DIFF? NO; ADD MORPH? NO; ADD SCAN? NO; ATYPICAL LYMPHOCYTE FLAG 20 (0-99); FRAGMENT RBC FLAG 0 (0-99); HEMATOCRIT 43.6 % (40.0-51.0); LEFT SHIFT FLG 0 (0-99); LIPEMIA HEMOLYSIS FLAG 80 (0-99); MEAN CELL HEMOGLOBIN 26.8 pg (27.9-34.1); MEAN CELL HEMOGLOBIN CONCENTR. 32.1 g/dL (32.4-36.7); MEAN CELL VOLUME 83.4 fL (81.5-99.8); MEAN PLATELET VOLUME 10.9 fL (8.7-11.7); PLATELET CLUMPS FLAG 0 (0-99); PLATELET COUNT 240 10^3/uL (150-400); RED BLOOD CELL COUNT 5.23 10^6/uL (4.40-6.38); RED CELL DISTRIBUTION WIDTH 18.1 % (11.5-15.2)
[2016-07-30 12:54] LABS: ANION GAP 16 mEq/L (8-16); CALCIUM 9.7 mg/dL (8.5-10.4); CARBON DIOXIDE 21 mEq/l (22-31); CHLORIDE 101 mEq/L (97-110); CREATININE 1.3 mg/dL (0.7-1.3); GLOMERULAR FILTRATION RATE 53; GLUCOSE 217 mg/dL (70-100); POTASSIUM 4.7 mEq/L (3.5-5.2); SODIUM 138 mEq/L (134-144)
[2016-07-30 13:04] LABS: TROPONIN I 0.174 ng/mL (0-0.034)
[2016-07-30] MEDS ORDERED: NITROGLYCERIN 2% 1 GM PACKET TP ONE (13:12)
[2016-07-30 13:21] LABS: INR 1.29 (0.83-1.16); PROTIME(PATIENT) 16.1 SEC (12.0-15.0)
[2016-07-30 13:22] LABS: APTT 27.3 SEC (23.0-38.0)
[2016-07-30] MEDS ORDERED: FUROSEMIDE 40 MG/4 ML VIAL IVP ONE (16:35)
[2016-07-30] MEDS ORDERED: ACETAMINOPHEN 325 MG TAB PO PRN (16:36)
[2016-07-30] MEDS ORDERED: ONDANSETRON 4 MG/2 ML VIAL IVP PRN (16:36)
[2016-07-30] MEDS ORDERED: ONDANSETRON DISINTEGRATING 4 MG TAB PO PRN (16:36)
[2016-07-30] MEDS ORDERED: NITROGLYCERIN 0.4 MG BTL SL PRN (16:39)
--- NOTE | 2016-07-30 17:58 | GHP ---
[f rep st] HISTORY AND PHYSICAL DATE OF ADMISSION: 07/30/2016 HISTORY OF PRESENT ILLNESS: The patient is a pleasant, 85-year-old gentleman with a history of yon nary artery disease, chronic systolic heart failure, multiple recent admissions, who [facility] today with increased shortness of breath. The patient may have an element of dementia or cognitive dysfunction. Sometimes he is a little bit difficult to follow. According to the ER physician, [facility] with shortness of breath f or a few days. Gradual in onset. There is no chest pain. There is no PND, orthopnea, or lower ext remity edema. He has no fever. He has been coughing. He has not having abdominal pain. He has no t had burning when urinating or pain when he urinates. There is apparently report from his , who I have also met, who said he may have had a difficult time understanding words. The report of this says it lasted less than 2 minutes. Spontaneously res olved. No headache. No facial droop. When I speak with him, he is at his neurologic baseline. Th ere is no dysarthria. There is no word-finding difficulty. The patient is complaining of being cold and wishing he had some socks. Apparently, his socks got w et and they were removed. He says he has been eating well. He is not constipated. REVIEW OF SYSTEMS: Complete 10-point review of systems conducted. Negative except as noted in the HPI. PAST MEDICAL HISTORY: 1. Coronary artery disease. 2. LAD stent in March 2016. 3. Pacemaker secondary to heart block. 4. Diabetes. 5. BPH. 6. Chronic systolic heart failure with an EF of 45% to 50%. 7. Pulmonary hypertension. 8. Mitral regurgitation. 9. Cognitive dysfunction. 10. History of pleural effusion that did not respond to diuresis. 11. Chronic troponin elevation. 12. Severe protein calorie malnutrition with a BMI of 18.8. ALLERGIES: Diphenhydramine, "procedural sedation. " I took care of him during admission in March when he received that he was encephalopathic for about 4 days. HOME MEDICATIONS: Aspirin, Plavix, Lasix, PreserVision, levothyroxine, lisinopril, metformin, manny zapine, nebivolol, nitroglycerin, simvastatin, spironolactone, tamsulosin. SOCIAL HISTORY: Lives his . Currently living at [facility]. Belgian speaking. No tobacco or alcohol. FAMILY HISTORY: Parents are . PHYSICAL EXAM: VITAL SIGNS: Presenting vitals today, temperature 35.8, blood pressure 114/77, puls e 86, breathing 12 times a minute, 97% on room air. GENERAL: No acute distress. HEENT: Sclerae a nicteric. Oropharynx clear. Mucous membranes moist. NECK: Supple. There is elevated JVD. The a ngle of the jaw is 30 degrees. HEART: S1, S2. Not tachycardic. There are no significant murmurs. LUNGS: Clear to auscultation anterolaterally. Posterior exam is somewhat limited but there are d ecreased breath sounds at the bases. ABDOMEN: Soft, nontender, nondistended. LOWER EXTREMITIES: Without edema. Calves are nontender. SKIN: Without rash. NEUROLOGIC: Nonfocal, including upper extremity and lower extremity strength 5/5 bilaterally. Speech is fluent. There is an element of c onfusion to him that is consistent with the times I have seen him previously. LABS: White count 9.7, hematocrit 43.6, platelets are 240,000. His INR is 1.3. Sodium 138, potass ium 4.7, chloride 101, bicarb 21, BUN 48, creatinine of 1.3. Again, about baseline glucose 217. Tr oponin is 0.174, which is a little bit lower than he typically is. BNP is elevated at 10,900, which is high for him. There is no urinalysis. DIAGNOSTIC DATA: Chest x-ray, interpreted by me, shows cardiomegaly with increased right and left s table pleural effusion with associated atelectasis without pulmonary edema. EKG, interpreted by me, shows a paced rhythm with a left bundle branch block pattern. Noncontrast head CT shows significant white matter change consistent with small-vessel ischemic dise ase, which is stable. Evidence of chronic lacunar infarct. Some generalized cerebral atrophy. I d iscussed the case Dr. Isidro Serrato. ASSESSMENT/PLAN: 85-year-old gentleman presents with [id number] systolic heart failure as wel l as possible transient ischemic attack. 1. Possible transient ischemic attack. At this point in time, I think we will continue with his du al antiplatelet therapy and not further. Given his underlying dementia without clear foc al weakness, it is difficult to understand exactly what went on. I think he is a poor candidate for systemic anticoagulation, should atrial fibrillation be found, and he is already on a statin, aspir in, and dual antiplatelet therapy. 2. Systolic heart failure. The patient has evidence of systolic heart failure with increased jugul ar venous distention and BNP. We will diurese him with Lasix 40 IV b.i.d. and follow his response. He does not have significant pulmonary edema nor does he have an oxygen requirement. 3. Encephalopathy, multifactorial. He has pretty significant underlying dementia. Will follow. 4. Chronic kidney disease. We will follow with diuresis. 5. Elevated INR. It is probably liver congestion. 6. Leukocytosis, mild. He has had this level a number of times in the past. 7. Feeling cold. Given the nonspecific nature of his presentation, I will draw blood cultures, a U A, and urine cultures, although my suspicion for an infectious etiology is somewhat low. 8. Code status appears to be full. DISPOSITION: Inpatient status. /[id number]/MODL
[2016-07-30] MEDS ORDERED: FUROSEMIDE 20 MG/2 ML VIAL ONE (19:24)
[2016-07-30] MEDS: metFORMIN HCL 500 MG TAB PO SCH (19:28)
[2016-07-30] MEDS: PRESERVISION AREDS2 FORMULA EYE VIT 1 EACH PO SCH (19:29)
[2016-07-30] MEDS: SPIRONOLACTONE 25 MG TAB PO SCH (19:29)
[2016-07-30] MEDS ORDERED: SIMVASTATIN 5 MG PO SCH (21:00)
[2016-07-30] MEDS ORDERED: MIRTAZAPINE 15 MG TAB PO SCH (21:00)
[2016-07-30] MEDS ORDERED: MIRTAZAPINE 7.5 MG PO SCH (21:00)
[2016-07-30 21:34] LABS: COLOR YELLOW; LEUKOCYTE ESTERASE,URINE NEGATIVE (NEGATIVE); NITRITE,URINE NEGATIVE (NEGATIVE)
[2016-07-31 05:10] LABS: % IMMATURE GRANULYOCYTES 0.4 % (0.0-1.1); ABSOLUTE IMMATURE GRANULOCYTES 0.04 10^3/uL (0.00-0.10); ADD DIFF? NO; ADD MORPH? NO; ADD SCAN? NO; ATYPICAL LYMPHOCYTE FLAG 0 (0-99); FRAGMENT RBC FLAG 20 (0-99); HEMATOCRIT 42.5 % (40.0-51.0); HEMOGLOBIN 13.5 g/dL (13.7-17.5); LEFT SHIFT FLG 0 (0-99); LIPEMIA HEMOLYSIS FLAG 80 (0-99); MEAN CELL HEMOGLOBIN 27.3 pg (27.9-34.1); MEAN CELL HEMOGLOBIN CONCENTR. 31.8 g/dL (32.4-36.7); MEAN CELL VOLUME 85.9 fL (81.5-99.8); PLATELET CLUMPS FLAG 0 (0-99); PLATELET COUNT 205 10^3/uL (150-400); RED BLOOD CELL COUNT 4.95 10^6/uL (4.40-6.38); RED CELL DISTRIBUTION WIDTH 18.6 % (11.5-15.2)
[2016-07-31 05:23] LABS: ANION GAP 14 mEq/L (8-16); CALCIUM 9.4 mg/dL (8.5-10.4); CARBON DIOXIDE 21 mEq/l (22-31); CHLORIDE 104 mEq/L (97-110); CREATININE 1.3 mg/dL (0.7-1.3); GLOMERULAR FILTRATION RATE 53; GLUCOSE 207 mg/dL (70-100); POTASSIUM 4.5 mEq/L (3.5-5.2); SODIUM 139 mEq/L (134-144)
[2016-07-31] MEDS: FUROSEMIDE 40 MG/4 ML VIAL IVP SCH ×2 (08:35→14:56)
[2016-07-31] MEDS: LISINOPRIL 5 MG TAB PO SCH (08:35)
[2016-07-31] MEDS: SPIRONOLACTONE 25 MG TAB PO SCH (08:36)
[2016-07-31] MEDS: NEBIVOLOL HCL 5 MG TAB PO SCH (08:36)
[2016-07-31] MEDS: TAMSULOSIN HCL 0.4 MG CAP PO SCH (08:36)
[2016-07-31] MEDS: PRESERVISION AREDS2 FORMULA EYE VIT 1 EACH PO SCH ×2 (08:36→22:13)
[2016-07-31] MEDS: metFORMIN HCL 500 MG TAB PO SCH ×2 (08:36→17:24)
[2016-07-31] MEDS: ASPIRIN EC 325 MG TAB PO SCH (08:36)
[2016-07-31] MEDS: LEVOTHYROXINE 50 MCG TAB PO SCH (08:36)
[2016-07-31] MEDS: CLOPIDOGREL BISULFATE 75 MG TAB PO SCH (08:36)
[2016-07-31] MEDS: ENOXAPARIN 30 MG/0.3 ML SYR SC SCH (08:37)
[2016-07-31] MEDS ORDERED: IOPAMIDOL (ISOVUE-300) 100 ML BTL ONE (13:41)
--- NOTE | 2016-07-31 15:39 | PDPCPN ---
Palliative Care Progress Note Assessment/Plan: HPI: William Wallace is a 85 yo male with PMH diastolic CHF, pul HTN, DMII, SSS s/p pacemaker, and BPH admitted to the hospital from clinic for increased SOB and ? TIA and confusion. Ct head negative for any acute process. SNP on admission elevated and started on IV lasix. This is his 4th admission this year. Palliative care has seen him on a previous admission, following up with patient and family for symptom management and goals of care. Spoke with Oneyda at the bedside today. She states William was doing pretty well in [facility] up until a few days ago. She feels his high sugars are what is causing him to be so fatigued and confused. She was interested to learn about the most recent Ct head to see if there was a problem with his brain. We did briefly discuss he may not get completely better but she was focused on getting his sugars lower to see if this will help. Assessment: Physical: - Dyspnea: at baseline - oxygen as needed - fan can also help with subjective dyspnea - confusion/weakness/fatigue - recommend stopping remeron as can increase confusion and fatigue. Seems to be a new medication from [facility] - hx of acute encephalopathy from sedative medications - if having insomnia recommend starting with melatonin - PT/OT on consult Emotional/psychological: Has a lot of support from and daughter Advanced Care Planning: Is patient decisional?: No, not at this time Code Status: Full MD POA: Oneyda is MDPOA Plan: Known to us from previous admission. Will follow along as needed and help address goals of care as needed. 07/31/16 15:42 Subjective: the team is working on the community (confused) Objective: Social History: to Oneyda. Has 1 daughter Dominga involved. 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 Medication list reviewed ROS: General: fatigue, weakness, weight loss ENT: negative Resp: dyspnea GI: negative : negative MS: negative Skin: negative Neuro: negative Psych: confusion Functional assessment: PPS: 40% Functional status: dependent on ADLs, IADLs Vital Signs Temp Pulse Resp BP Pulse Ox 36.3 C 79 12 116/75 95 07/31/16 15:15 07/31/16 15:15 07/31/16 15:15 07/31/16 15:15 07/31/16 15:15 Laboratory Results 07/31/16 04:13 07/31/16 04:13 07/30/16 07/31/16 08/01/16 05:59 05:59 05:59 Intake Total 100 Output Total 225 250 Balance -125 -250 PT 16.1 SEC (12.0-15.0) H 07/30/16 12:27 INR 1.29 (0.83-1.16) H 07/30/16 12:27 Physical Exam - Physical Exam General Appearance: alert, no apparent distress Respiratory: No respiratory distress, No accessory muscle use Skin: normal color, warm/dry Extremities: No pedal edema Neuro/Psych: alert, disoriented to person, disoriented to place, disoriented to time, other (fatigued and confused) ICD10 Worksheet Patient Problems: Problems Problem Status Onset Acute exacerbation of congestive heart failure Acute Diabetes mellitus with hyperglycemia Acute Elevated troponin Acute TIA (transient ischemic attack) Acute CHF (congestive heart failure) Acute Chest pain Acute Chronic Disease Mgmt/Transitional Care Acute Chronic Disease Mgmt/Transitoinal Care Acute Coronary artery disease Acute Elevated troponin Acute Essential (primary) hypertension Acute Hyperlipidemia Acute Near syncope Acute Pacemaker Acute Palliative care encounter Acute S/P coronary artery stent placement Acute Weakness Acute
--- NOTE | 2016-07-31 16:30 | HOSPPROG ---
Hospitalist Progress Note Assessment/Plan: 85 yo M with PMH of CAD, chronic systolic HF pw decreased mentation/word finding difficulties and sob # acute on chronic encephalopathy: history is a bit difficult given language issues and patient and his being a bit of poor historians, but sounds like more abrupt decrease in mentation recently, slow to respond, word finding difficulties. Head ct w/o negative, and ordered repeat w/contrast given inability to obtain MRI also negative. B12, TSH wnl. Query a more subacute dementia process, will get further evaluation and history as able and consider IP versus OP neurology f/u. Did recently start remeron, possibly contributing, so this was discontinued. # acute on chronic systolic heart failure: on personal review of cxr there is CM and stable pleural effusions noted, recent echo showing EF of 40% as well as diastolic dysfunction. Started lasix, recently started on digoxin # elevated trop: suspect this is demand and has been essentially flat, no ecg changes on personal review of ecg and no chest pain. Monitoring on tele # ckd: at baseline # VHD: moderate MR, mod to sever TR, mild pulm htn # CAD: hx of stents, again cp free # DM: continue to monitor, SSI # FTT: sounds as if he has had a decline in ability to ambulate and care for himself, recent rehab stay without significant improvement in his strength etc. PT/OT/CM/palliatve care involved. IP stay given multiple active conditions Patient new to my care. Old records reviewed and summarized as above. Care plan reviewed with palliative care team. Further hx obtained from patients present at bedside. Subjective: no significant overnight events, patient somnolent, slow to respond to questions Objective: Vital Signs Temp Pulse Resp BP Pulse Ox 36.3 C 79 12 116/75 95 07/31/16 15:15 07/31/16 15:15 07/31/16 15:15 07/31/16 15:15 07/31/16 15:15 Laboratory Results 07/31/16 04:13 07/31/16 04:13 07/30/16 07/31/16 08/01/16 05:59 05:59 05:59 Intake Total 100 Output Total 225 250 Balance -125 -250 PT 16.1 SEC (12.0-15.0) H 07/30/16 12:27 INR 1.29 (0.83-1.16) H 07/30/16 12:27 awake somnolent anicteric op clear rrr systolic murmur dec at bases soft nt nd trace ble edema warm dry well perfused slow to respond to questions, oriented - Time Spent With Patient Time Spent with Patient: greater than 35 minutes Time Spent with Patient: Greater than 35 minutes spent on this patients care, greater than 50% of time spent counseling, educating, and coordinating care regarding the above mentioned plan. ICD10 Worksheet Patient Problems: Problems Problem Status Onset Acute exacerbation of congestive heart failure Acute TIA (transient ischemic attack) Acute Elevated troponin Acute Diabetes mellitus with hyperglycemia Acute Chronic Disease Mgmt/Transitional Care Acute Chest pain Acute Near syncope Acute Elevated troponin Acute Palliative care encounter Acute Chronic Disease Mgmt/Transitoinal Care Acute Coronary artery disease Acute Essential (primary) hypertension Acute Pacemaker Acute Hyperlipidemia Acute S/P coronary artery stent placement Acute Weakness Acute CHF (congestive heart failure) Acute
[2016-07-31] MEDS ORDERED: DIPHENHYDRAMINE CREAM TP PRN (20:37)
[2016-07-31] MEDS: PRAVASTATIN SODIUM 10 MG TAB PO SCH (22:13)
[2016-08-01 05:00] LABS: % IMMATURE GRANULYOCYTES 0.4 % (0.0-1.1); ABSOLUTE IMMATURE GRANULOCYTES 0.04 10^3/uL (0.00-0.10); ADD DIFF? NO; ADD MORPH? NO; ADD SCAN? NO; ATYPICAL LYMPHOCYTE FLAG 20 (0-99); FRAGMENT RBC FLAG 20 (0-99); HEMATOCRIT 42.7 % (40.0-51.0); HEMOGLOBIN 13.6 g/dL (13.7-17.5); LEFT SHIFT FLG 0 (0-99); LIPEMIA HEMOLYSIS FLAG 80 (0-99); MEAN CELL HEMOGLOBIN CONCENTR. 31.9 g/dL (32.4-36.7); MEAN CELL VOLUME 84.7 fL (81.5-99.8); MEAN PLATELET VOLUME 10.7 fL (8.7-11.7); PLATELET CLUMPS FLAG 10 (0-99); PLATELET COUNT 215 10^3/uL (150-400); RED BLOOD CELL COUNT 5.04 10^6/uL (4.40-6.38); RED CELL DISTRIBUTION WIDTH 18.3 % (11.5-15.2)
[2016-08-01 05:09] LABS: ANION GAP 15 mEq/L (8-16); CALCIUM 9.4 mg/dL (8.5-10.4); CARBON DIOXIDE 24 mEq/l (22-31); CHLORIDE 103 mEq/L (97-110); CREATININE 1.4 mg/dL (0.7-1.3); GLOMERULAR FILTRATION RATE 48; GLUCOSE 157 mg/dL (70-100); POTASSIUM 4.3 mEq/L (3.5-5.2); SODIUM 142 mEq/L (134-144)
[2016-08-01] MEDS: PRESERVISION AREDS2 FORMULA EYE VIT 1 EACH PO SCH ×2 (09:07→21:20)
[2016-08-01] MEDS: metFORMIN HCL 500 MG TAB PO SCH ×2 (09:07→18:11)
[2016-08-01] MEDS: ASPIRIN EC 325 MG TAB PO SCH (09:07)
[2016-08-01] MEDS: LEVOTHYROXINE 50 MCG TAB PO SCH (09:08)
[2016-08-01] MEDS: ENOXAPARIN 30 MG/0.3 ML SYR SC SCH (09:08)
[2016-08-01] MEDS: CLOPIDOGREL BISULFATE 75 MG TAB PO SCH (09:08)
[2016-08-01] MEDS: FUROSEMIDE 40 MG/4 ML VIAL IVP SCH (09:08)
[2016-08-01] MEDS: LISINOPRIL 5 MG TAB PO SCH (09:08)
[2016-08-01] MEDS: NEBIVOLOL HCL 5 MG TAB PO SCH (09:09)
[2016-08-01] MEDS: SPIRONOLACTONE 25 MG TAB PO SCH (09:09)
[2016-08-01] MEDS: TAMSULOSIN HCL 0.4 MG CAP PO SCH (09:11)
--- NOTE | 2016-08-01 13:47 | HOSPPROG ---
Hospitalist Progress Note Assessment/Plan: 85 yo M with PMH of CAD, chronic systolic HF pw decreased mentation/word finding difficulties and sob # acute on chronic encephalopathy: improving since yesterday, non focal neuro exam and w/u including head ct and labs unremarkable. Stopped remeron and now improved, so query if this was contributing. Does for sure have underlying dementia and this could all be related to progression of dementia. # acute on chronic systolic heart failure: improving and now off of oxygen, did have mild bump in creatinine so will change from IV to oral lasix. Seems to be nearing euvolemia. # elevated trop: suspect this is demand and has been essentially flat, no ecg changes on personal review of ecg and no chest pain. Monitoring on tele, chest pain free. # dc on ckd: mild bump in creatinine today likely related to diuresis, will back off on lasix and switch to oral dose. Continue monitoring. # VHD: moderate MR, mod to sever TR, mild pulm htn # CAD: hx of stents, again cp free # DM: continue to monitor, SSI # FTT: sounds as if he has had a decline in ability to ambulate and care for himself, recent rehab stay without significant improvement in his strength etc. PT/OT/CM/palliatve care involved. IP stay given multiple active conditions Care plan reviewed with patients present at bedside. Subjective: this am patient is feeling better, answering questions more easily, now off of oxygen Objective: Vital Signs Temp Pulse Resp BP Pulse Ox 36.7 C 98 18 122/80 H 97 08/01/16 12:00 08/01/16 12:00 08/01/16 12:00 08/01/16 12:00 08/01/16 12:00 Laboratory Results 08/01/16 03:46 08/01/16 03:46 07/31/16 08/01/16 08/02/16 05:59 05:59 05:59 Intake Total 100 675 350 Output Total 225 425 Balance -125 250 350 PT 16.1 SEC (12.0-15.0) H 07/30/16 12:27 INR 1.29 (0.83-1.16) H 07/30/16 12:27 awake somnolent anicteric op clear rrr systolic murmur dec at bases soft nt nd trace ble edema warm dry well perfused slow to respond to questions, oriented - Time Spent With Patient Time Spent with Patient: greater than 35 minutes Time Spent with Patient: Greater than 35 minutes spent on this patients care, greater than 50% of time spent counseling, educating, and coordinating care regarding the above mentioned plan. ICD10 Worksheet Patient Problems: Problems Problem Status Onset Acute exacerbation of congestive heart failure Acute Diabetes mellitus with hyperglycemia Acute Elevated troponin Acute TIA (transient ischemic attack) Acute CHF (congestive heart failure) Acute Chest pain Acute Chronic Disease Mgmt/Transitional Care Acute Chronic Disease Mgmt/Transitoinal Care Acute Coronary artery disease Acute Elevated troponin Acute Essential (primary) hypertension Acute Hyperlipidemia Acute Near syncope Acute Pacemaker Acute Palliative care encounter Acute S/P coronary artery stent placement Acute Weakness Acute
[2016-08-01] MEDS: FUROSEMIDE 40 MG TAB PO SCH (15:40)
[2016-08-01] MEDS: PRAVASTATIN SODIUM 10 MG TAB PO SCH (21:20)
[2016-08-02 04:59] LABS: ADD DIFF? YES; ADD MORPH? NO; ADD SCAN? NO; ATYPICAL LYMPHOCYTE FLAG 20 (0-99); FRAGMENT RBC FLAG 20 (0-99); HEMATOCRIT 43.3 % (40.0-51.0); HEMOGLOBIN 13.9 g/dL (13.7-17.5); LEFT SHIFT FLG 0 (0-99); LIPEMIA HEMOLYSIS FLAG 80 (0-99); MEAN CELL HEMOGLOBIN 27.2 pg (27.9-34.1); MEAN CELL HEMOGLOBIN CONCENTR. 32.1 g/dL (32.4-36.7); MEAN CELL VOLUME 84.7 fL (81.5-99.8); MEAN PLATELET VOLUME 11.4 fL (8.7-11.7); PLATELET CLUMPS FLAG 10 (0-99); PLATELET COUNT 209 10^3/uL (150-400); RED BLOOD CELL COUNT 5.11 10^6/uL (4.40-6.38); RED CELL DISTRIBUTION WIDTH 18.2 % (11.5-15.2)
[2016-08-02 05:29] LABS: ANION GAP 14 mEq/L (8-16); CALCIUM 9.4 mg/dL (8.5-10.4); CARBON DIOXIDE 24 mEq/l (22-31); CHLORIDE 105 mEq/L (97-110); CREATININE 1.3 mg/dL (0.7-1.3); GLOMERULAR FILTRATION RATE 53; GLUCOSE 131 mg/dL (70-100); SODIUM 143 mEq/L (134-144)
[2016-08-02 05:59] LABS: ACANTHOCYTES 1+; ELLIPTOCYTES 1+; HYPOCHROMIA 1+
[2016-08-02 06:00] LABS: PLATELET ESTIMATE ADEQUATE (ADEQ)
[2016-08-02] MEDS: ASPIRIN EC 325 MG TAB PO SCH (09:51)
[2016-08-02] MEDS: TAMSULOSIN HCL 0.4 MG CAP PO SCH (09:51)
[2016-08-02] MEDS: LISINOPRIL 5 MG TAB PO SCH (09:51)
[2016-08-02] MEDS: SPIRONOLACTONE 25 MG TAB PO SCH (09:51)
[2016-08-02] MEDS: PRESERVISION AREDS2 FORMULA EYE VIT 1 EACH PO SCH ×2 (09:52→20:10)
[2016-08-02] MEDS: LEVOTHYROXINE 50 MCG TAB PO SCH (09:52)
[2016-08-02] MEDS: FUROSEMIDE 40 MG TAB PO SCH ×2 (09:52→15:08)
[2016-08-02] MEDS: NEBIVOLOL HCL 5 MG TAB PO SCH (09:52)
[2016-08-02] MEDS: CLOPIDOGREL BISULFATE 75 MG TAB PO SCH (09:52)
[2016-08-02] MEDS: ENOXAPARIN 30 MG/0.3 ML SYR SC SCH (09:53)
[2016-08-02] MEDS: metFORMIN HCL 500 MG TAB PO SCH ×2 (09:53→17:41)
--- NOTE | 2016-08-02 12:31 | HOSPPROG ---
Hospitalist Progress Note Assessment/Plan: 85 yo M new to my care today with PMH of CAD, chronic systolic HF pw decreased mentation/word finding difficulties and sob # acute on chronic encephalopathy (improving) suspect dementia with acute delirium due to below # acute on chronic systolic heart failure (improving and now off of oxygen) suspect medication noncompliance # elevated trop: suspect this is demand and has been essentially flat, no ecg changes on personal review of ecg and no chest pain. Monitoring on tele, chest pain free. # severe protein calorie malnutrition # dc on ckd (resolved) # VHD: moderate MR, mod to sever TR, mild pulm htn # CAD: hx of stents, again cp free # DM: continue to monitor, SSI # FTT: sounds as if he has had a decline in ability to ambulate and care for himself, recent rehab stay without significant improvement in his strength etc. PT/OT/CM/palliatve care involved. dispo: continue IP care is not interesting in pursuing hospice care or transfer to snf. He still seems too weak to return home. Subjective: no complaints Objective: Vital Signs Temp Pulse Resp BP Pulse Ox 36.6 C 91 17 111/65 96 08/02/16 08:00 08/02/16 12:00 08/02/16 12:00 08/02/16 12:00 08/02/16 12:00 Laboratory Results 08/02/16 04:06 08/02/16 04:06 08/01/16 08/02/16 08/03/16 05:59 05:59 05:59 Intake Total 675 1844 Output Total 425 403 Balance 250 1441 PT 16.1 SEC (12.0-15.0) H 07/30/16 12:27 INR 1.29 (0.83-1.16) H 07/30/16 12:27 - Physical Exam Constitutional: chronically ill appearing, cachectic Cardiovascular: regular rate and rhythym, no murmur, rub, or gallop, No JVD, No edema Respiratory: no respiratory distress, no rales or rhonchi, clear to auscultation Gastrointestinal: normoactive bowel sounds, soft, non-tender abdomen, no palpable masses, No guarding, No rebound Skin: warm, no rashes or abrasions, no fluctuance, no induration ICD10 Worksheet Patient Problems: Problems Problem Status Onset Acute exacerbation of congestive heart failure Acute Diabetes mellitus with hyperglycemia Acute Elevated troponin Acute TIA (transient ischemic attack) Acute CHF (congestive heart failure) Acute Chest pain Acute Chronic Disease Mgmt/Transitional Care Acute Chronic Disease Mgmt/Transitoinal Care Acute Coronary artery disease Acute Elevated troponin Acute Essential (primary) hypertension Acute Hyperlipidemia Acute Near syncope Acute Pacemaker Acute Palliative care encounter Acute S/P coronary artery stent placement Acute Weakness Acute
[2016-08-02] MEDS: PRAVASTATIN SODIUM 10 MG TAB PO SCH (20:10)
[2016-08-03 05:25] LABS: % IMMATURE GRANULYOCYTES 0.2 % (0.0-1.1); ABSOLUTE IMMATURE GRANULOCYTES 0.02 10^3/uL (0.00-0.10); ADD DIFF? NO; ADD MORPH? NO; ADD SCAN? NO; ATYPICAL LYMPHOCYTE FLAG 10 (0-99); FRAGMENT RBC FLAG 20 (0-99); HEMATOCRIT 42.9 % (40.0-51.0); HEMOGLOBIN 13.5 g/dL (13.7-17.5); LEFT SHIFT FLG 0 (0-99); LIPEMIA HEMOLYSIS FLAG 80 (0-99); MEAN CELL HEMOGLOBIN 26.7 pg (27.9-34.1); MEAN CELL HEMOGLOBIN CONCENTR. 31.5 g/dL (32.4-36.7); MEAN PLATELET VOLUME 11.3 fL (8.7-11.7); PLATELET CLUMPS FLAG 80 (0-99); PLATELET COUNT 198 10^3/uL (150-400); RED BLOOD CELL COUNT 5.05 10^6/uL (4.40-6.38); RED CELL DISTRIBUTION WIDTH 18.5 % (11.5-15.2)
[2016-08-03 06:02] LABS: ANION GAP 14 mEq/L (8-16); CALCIUM 9.2 mg/dL (8.5-10.4); CARBON DIOXIDE 21 mEq/l (22-31); CHLORIDE 106 mEq/L (97-110); CREATININE 1.2 mg/dL (0.7-1.3); GLOMERULAR FILTRATION RATE 58; GLUCOSE 157 mg/dL (70-100); POTASSIUM 4.4 mEq/L (3.5-5.2); SODIUM 141 mEq/L (134-144)
[2016-08-03] MEDS: LEVOTHYROXINE 50 MCG TAB PO SCH (07:42)
[2016-08-03] MEDS: metFORMIN HCL 500 MG TAB PO SCH ×2 (07:42→19:07)
[2016-08-03] MEDS: FUROSEMIDE 40 MG TAB PO SCH ×2 (09:24→15:11)
[2016-08-03] MEDS: NEBIVOLOL HCL 5 MG TAB PO SCH (09:24)
[2016-08-03] MEDS: SPIRONOLACTONE 25 MG TAB PO SCH (09:24)
[2016-08-03] MEDS: ASPIRIN EC 325 MG TAB PO SCH (09:25)
[2016-08-03] MEDS: LISINOPRIL 5 MG TAB PO SCH (09:25)
[2016-08-03] MEDS: PRESERVISION AREDS2 FORMULA EYE VIT 1 EACH PO SCH ×2 (09:25→20:02)
[2016-08-03] MEDS: CLOPIDOGREL BISULFATE 75 MG TAB PO SCH (09:25)
[2016-08-03] MEDS: TAMSULOSIN HCL 0.4 MG CAP PO SCH (09:26)
[2016-08-03] MEDS: ENOXAPARIN 30 MG/0.3 ML SYR SC SCH (09:26)
--- NOTE | 2016-08-03 14:11 | HOSPPROG ---
Hospitalist Progress Note Assessment/Plan: 85 yo M with PMH of CAD, chronic systolic HF pw decreased mentation/word finding difficulties and sob # acute on chronic encephalopathy: significantly improved and seems to be back to baseline now--definitely has some baseline dementia though family seems to be in a bit of denial around that. Acute worsening presumably delerium in setting of chf exacerbation and possible contribution of remeron. # acute on chronic systolic heart failure: improving and now off of oxygen, currently appears euvolemic. # elevated trop: suspect this is demand and has been essentially flat, no chest pain, no ecg changes. 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 PT/OT/CM/palliative care involved. IP stay given multiple active conditions. Patient now agreeing to discharge to snf. Care plan reviewed with patients present at bedside. Subjective: no significant overnight events, patient currently feeling a bit better but states he would like to be more active and is concerned that he hasn' t been up much here, his cognition is much better Objective: Vital Signs Temp Pulse Resp BP Pulse Ox 36.3 C 87 14 127/90 H 94 08/03/16 07:45 08/03/16 09:24 08/03/16 07:45 08/03/16 09:25 08/03/16 07:45 Microbiology 07/30/16 21:03 Urine Culture - Final Urine,Clean Catch Staphylococcus Aureus Five Or More [place] Types Laboratory Results 08/03/16 04:01 08/03/16 04:01 08/02/16 08/03/16 08/04/16 05:59 05:59 05:59 Intake Total 1844 2140 Output Total 403 50 Balance 1441 2090 PT 16.1 SEC (12.0-15.0) H 07/30/16 12:27 INR 1.29 (0.83-1.16) H 07/30/16 12:27 awake somnolent anicteric op clear rrr systolic murmur dec at bases soft nt nd trace ble edema warm dry well perfused slow to respond to questions, oriented - Time Spent With Patient Time Spent with Patient: greater than 35 minutes Time Spent with Patient: Greater than 35 minutes spent on this patients care, greater than 50% of time spent counseling, educating, and coordinating care regarding the above mentioned plan. ICD10 Worksheet Patient Problems: Problems Problem Status Onset Acute exacerbation of congestive heart failure Acute Diabetes mellitus with hyperglycemia Acute Elevated troponin Acute TIA (transient ischemic attack) Acute CHF (congestive heart failure) Acute Chest pain Acute Chronic Disease Mgmt/Transitional Care Acute Chronic Disease Mgmt/Transitoinal Care Acute Coronary artery disease Acute Elevated troponin Acute Essential (primary) hypertension Acute Hyperlipidemia Acute Near syncope Acute Pacemaker Acute Palliative care encounter Acute S/P coronary artery stent placement Acute Weakness Acute
[2016-08-03] MEDS: PRAVASTATIN SODIUM 10 MG TAB PO SCH (20:02)
[2016-08-04 07:54] LABS: % IMMATURE GRANULYOCYTES 0.2 % (0.0-1.1); ABSOLUTE IMMATURE GRANULOCYTES 0.02 10^3/uL (0.00-0.10); ADD DIFF? NO; ADD MORPH? NO; ADD SCAN? NO; ATYPICAL LYMPHOCYTE FLAG 20 (0-99); FRAGMENT RBC FLAG 30 (0-99); HEMATOCRIT 41.5 % (40.0-51.0); HEMOGLOBIN 13.1 g/dL (13.7-17.5); LEFT SHIFT FLG 0 (0-99); LIPEMIA HEMOLYSIS FLAG 80 (0-99); MEAN CELL HEMOGLOBIN 26.8 pg (27.9-34.1); MEAN CELL HEMOGLOBIN CONCENTR. 31.6 g/dL (32.4-36.7); MEAN CELL VOLUME 84.9 fL (81.5-99.8); PLATELET CLUMPS FLAG 10 (0-99); PLATELET COUNT 180 10^3/uL (150-400); RED BLOOD CELL COUNT 4.89 10^6/uL (4.40-6.38); RED CELL DISTRIBUTION WIDTH 18.5 % (11.5-15.2)
[2016-08-04 08:14] LABS: ANION GAP 12 mEq/L (8-16); CALCIUM 9.2 mg/dL (8.5-10.4); CARBON DIOXIDE 23 mEq/l (22-31); CHLORIDE 106 mEq/L (97-110); CREATININE 1.3 mg/dL (0.7-1.3); GLOMERULAR FILTRATION RATE 53; GLUCOSE 127 mg/dL (70-100); POTASSIUM 4.1 mEq/L (3.5-5.2); SODIUM 141 mEq/L (134-144)
[2016-08-04] MEDS: LEVOTHYROXINE 50 MCG TAB PO SCH (08:30)
[2016-08-04] MEDS: metFORMIN HCL 500 MG TAB PO SCH (08:30)
[2016-08-04 08:34] VITALS: BP 131/79; PULSE 90; RESP 16; TEMP 97.3
[2016-08-04] MEDS: PRESERVISION AREDS2 FORMULA EYE VIT 1 EACH PO SCH (10:15)
[2016-08-04] MEDS: LISINOPRIL 5 MG TAB PO SCH (10:15)
[2016-08-04] MEDS: NEBIVOLOL HCL 5 MG TAB PO SCH (10:15)
[2016-08-04] MEDS: TAMSULOSIN HCL 0.4 MG CAP PO SCH (10:15)
[2016-08-04] MEDS: SPIRONOLACTONE 25 MG TAB PO SCH (10:15)
[2016-08-04] MEDS: ASPIRIN EC 325 MG TAB PO SCH (10:16)
[2016-08-04] MEDS: CLOPIDOGREL BISULFATE 75 MG TAB PO SCH (10:16)
[2016-08-04] MEDS: FUROSEMIDE 40 MG TAB PO SCH (10:16)
[2016-08-04] MEDS: ENOXAPARIN 30 MG/0.3 ML SYR SC SCH (10:17)
--- NOTE | 2016-08-04 10:36 | PDIAF ---
- Diagnosis Code Status: Full Code - Medication Management Discharge Medications: Medications to Continue on Transfer Aspirin EC [Aspirin EC 325 mg (*)] 325 mg PO DAILY 07/10/16 [Last Taken 07/30/16 ] Clopidogrel Bisulfate [Plavix (*)] 75 mg PO DAILY 07/10/16 [Last Taken 07/30/16] Furosemide [Lasix 40 MG (*)] 40 mg PO BID 07/10/16 [Last Taken 07/30/16] Levothyroxine [Synthroid 50 mcg (*)] 50 mcg PO DAILY 07/10/16 [Last Taken ] Lisinopril [Zestril 5 mg (*)] 5 mg PO DAILY 07/10/16 [Last Taken 07/30/16] Nebivolol HCl [Bystolic 5 mg (*)] 2.5 mg PO DAILY 07/10/16 [Last Taken 07/30/16] Nitroglycerin [Nitrostat 0.4 mg (*)] 0.4 mg SL AD PRN 07/10/16 [Last Taken Unknown] Simvastatin 5 mg PO HS 07/10/16 [Last Taken 07/29/16] Tamsulosin HCl [Flomax 0.4 MG (*)] 0.4 mg PO DAILY 07/10/16 [Last Taken 07/30/16 ] Spironolactone [Aldactone 25 MG (*)] 25 mg PO DAILY #30 tab 07/16/16 [Last Taken 07/30/16] C/E/Zn/Cu/OM3/DHA/EPA/LUT/ZEAX [Preservision Areds 2 Softgel] 1 each PO BID [Last Taken 07/30/16] metFORMIN HCL [Glucophage 500 mg (*)] 500 mg PO BIDMEAL 07/30/16 [Last Taken ] Acetaminophen [Tylenol 325mg (*)] 650 mg PO Q4HRS PRN #0 tab 08/04/16 [Last Taken Unknown] Guaifenesin [Guaifenesin ER] 600 mg PO BID 7 Days 08/04/16 [Last Taken Unknown] Discharge Medications: Refer to the Discharge Home Medication list for PRN reason. - Orders Services needed: Registered Nurse, Certified [employer], Physical Therapy, Occupational Therapy Diet Recommendation: no restrictions on diet Weigh Patient: daily - Labs/Radiology BMP Date: 08/07/16 - Follow Up Care Current Providers and Referrals: WON CHERRY [Other] - As per Instructions
--- NOTE | 2016-08-04 10:36 | PDDCSUM ---
Discharge Summary Discharge Summary: Dates of service 07/30-08/04/16 Consultations: palliative care Procedures performed: head ct Hospital course by problem: # acute on chronic encephalopathy: significantly improved and seems to be back to baseline now; likely toxic/metabolic encephalopathy related to worsened heart failure and hypoxia in the setting of chronic dementia. # acute on chronic systolic heart failure: improved and off of o2 now, nearing or at euvolemia at time of dc, resumed on home lasix # elevated trop: suspect this is demand and has been essentially flat, no chest pain, no ecg changes. 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 DC to SNF. Dispo: dc to snf Meds: see EHR > 35 minutes spent in dc of patient, more than half in face to face counseling of patient and his as well as coordination of care
[2016-08-04 14:35] VITALS: O2SAT 96
== END 2016-08-04 12:39 | DRG 291 ==
LOC: EDUNIT# → F2W 14:58
PROVIDERS: ADMIT Internal Medicine; ATTEND Internal Medicine
DX: I50.23 Acute on chronic systolic (congestive) heart failure (principal); E43 Unspecified severe protein-calorie malnutrition; G93.41 Metabolic encephalopathy; N17.9 Acute kidney failure, unspecified; I12.9 Hypertensive chronic kidney disease with stage 1 through stage 4 chronic kidney disease, or unspecified chronic kidney disease; N18.9 Chronic kidney disease, unspecified; R62.7 Adult failure to thrive; E11.9 Type 2 diabetes mellitus without complications; I25.10 Atherosclerotic heart disease of native coronary artery without angina pectoris; E78.5 Hyperlipidemia, unspecified; Z95.0 Presence of cardiac pacemaker; Z79.4 Long term (current) use of insulin; Z95.5 Presence of coronary angioplasty implant and graft; Z68.1 Body mass index [BMI] 19.9 or less, adult; Z51.5 Encounter for palliative care
CPT/HCPCS: 92507-GN; 92523-GN; 97116-GP; 97161-GP; 97165-GO; 97530-GO; 97535-GO; G8978-GP-CJ; G8979-GP-CI; G8980-GP-CI; G8987-GO-CJ; G8988-GO-CI; G9168-GN-CM; G9169-GN-CM; J1650; J1940; Q9967

== ENCOUNTER 2016-10-01 22:17 | Observation (INO) | payer OTHER, MEDICARE ==
--- NOTE | 2016-10-01 22:47 | EDPHY ---
H & P Time Seen by Provider: 10/01/16 22:29 HPI/ROS: HPI The patient presents brought in by ambulance and tells me he is here because he would like to spend 1 night in the hospital and go home tomorrow morning. He says that he has been living at home for the last 1 week after previously residing at a residential. He says the home situation is chaotic an tonight his autistic grandson was visiting and caused him some distress. This caused an episode of palpitations lasting for a few seconds which is now resolved. He says he feels fine now. Paramedics report that the house was somewhat disorganized, smelled of urine, and there was some concern that his was not caring for him properly according to the patient's daughter. The patient was last in the hospital in July of this year and was discharged to a residential, he has been at home for the last 1 month. The patient's daughter Dominga states that she is concerned that her mother is not taking proper care of her father. He cannot use stairs and there is no shower on the ground level of the home for him to bathe. He is not eating well. The floors are on even and she worries he will trip and fall. She believes her mother may be in denial about the health of her and herself. She feels he cannot return home safely. Police have been involved in visited the home tonight. They will make a report as needed. REVIEW OF SYSTEMS Constitutional: No fever, no chills. Eyes: No discharge. ENT: No sore throat. Cardiovascular: No chest pain, no palpitations. Respiratory: No cough, no shortness of breath. Gastrointestinal: No abdominal pain, no vomiting. Genitourinary: No hematuria. Musculoskeletal: No back pain. Skin: No rashes. Neurological: No headache. PMHx: Chronic systolic congestive heart failure, chronic kidney disease, valvular heart disease, CAD, diabetes, is DPOA Soc Hx: Currently living at home PHYSICAL General Appearance: Alert, no distress Eyes: Pupils equal and round no pallor or injection ENT, Mouth: Mucous membranes moist Respiratory: There are no retractions, lungs are clear to auscultation Cardiovascular: Regular rate and rhythm Gastrointestinal: Abdomen is soft and non-tender, no masses, bowel sounds normal Neurological: A&O, moves all extremities Skin: Warm and dry, no rashes Musculoskeletal: Neck is supple non tender Extremities: symmetrical, full range of motion Psychiatric: Patient is oriented, there is no agitation Source: Patient, EMS, Old records - Medical/Surgical History Hx Asthma: No Hx Chronic Respiratory Disease: No Hx Diabetes: Yes Hx Cardiac Disease: Yes Hx Renal Disease: No Hx Cirrhosis: No Hx Alcoholism: No Hx HIV/AIDS: No Hx Splenectomy or Spleen Trauma: No Other PMH: CAD with stents, HTN, hyperlipidemia, 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 intollerence to benadryl/procedural sedation, diabetes, bph, chronic systolic HF EF of 45%, pulmonary HTN, pleural effusions, chronic troponin elevation, malnutrion - Social History Smoking Status: Never smoked Constitutional: Initial Vital Signs Temperature (C) 36.8 C 10/01/16 23:00 Heart Rate 95 10/01/16 23:00 Respiratory Rate 16 10/01/16 23:00 Blood Pressure 134/99 H 10/01/16 23:00 O2 Sat (%) 96 10/01/16 23:00 O2 Delivery Mode Room Air Allergies/Adverse Reactions: diphenhydramine [From Benadryl] Allergy (Verified 10/01/16 23:13) "procedural sedation" Allergy (Uncoded 07/10/16 18:31) Home Medications: Medication Instructions Recorded Aspirin EC [Aspirin EC 325 mg (*)] 325 mg PO DAILY 07/10/16 Clopidogrel Bisulfate [Plavix (*)] 75 mg PO DAILY 07/10/16 Furosemide [Lasix 40 MG (*)] 40 mg PO BID 07/10/16 Levothyroxine [Synthroid 50 mcg 50 mcg PO DAILY 07/10/16 (*)] Lisinopril [Zestril 5 mg (*)] 5 mg PO DAILY 07/10/16 Nebivolol HCl [Bystolic 5 mg (*)] 2.5 mg PO DAILY 07/10/16 Nitroglycerin [Nitrostat 0.4 mg 0.4 mg SL AD PRN 07/10/16 (*)] Simvastatin 5 mg PO HS 07/10/16 Tamsulosin HCl [Flomax 0.4 MG (*)] 0.4 mg PO DAILY 07/10/16 Spironolactone [Aldactone 25 MG 25 mg PO DAILY #30 tab 07/16/16 (*)] C/E/Zn/Cu/OM3/DHA/EPA/LUT/ZEAX 1 each PO BID 07/30/16 [Preservision Areds 2 Softgel] metFORMIN HCL [Glucophage 500 mg 500 mg PO BIDMEAL 07/30/16 (*)] Acetaminophen [Tylenol 325mg (*)] 650 mg PO Q4HRS PRN #0 tab 08/04/16 Guaifenesin [Guaifenesin ER] 600 mg PO BID 7 Days 08/04/16 Medical Decision Making - Diagnostics EKG Interpretation: EKG: Complete interpretation has been separately recorded in the [employer] archive. Summary impression: Interventricular conduction delay, unchanged from prior EKG Imaging Results: Chest x-ray two views is unchanged from prior, no infiltrate seen, interpreted by me, radiology interpretation is pending. Differential Diagnosis: This is an 85-year-old male who is brought in by ambulance from home where he has been living with his for the last 1 month after being in a residential. He has multiple medical problems including dementia. His is DPOA. He is complaining intermittent episodes of shortness of breath and palpitations. His daughter is here and reports that she is concerned about his living situation. She has made a police report. There is not adequate space for the patient to bathe. He is not eating well. He is not able to walk safely. Because of all of these issues and the patient's comorbidities, I feel he should be admitted to the hospital until case management can be consulted and we can sort out his shortness of breath. I have discussed the case with Dr. Crespo of the hospitalist service and we plan to admit him. Differential diagnosis includes CHF exacerbation, fluid overload, pneumonia, less likely pulmonary embolism. - Data Points Laboratory Results: Laboratory Results 10/01/16 23:58 10/01/16 23:58 10/01/16 10/01/16 10/01/16 23:58 23:58 23:58 WBC 7.14 10^3/uL 10^3/uL (3.80-9.50) RBC 4.34 10^6/uL L 10^6/uL (4.40-6.38) Hgb 12.2 g/dL L g/dL (13.7-17.5) Hct 37.6 % L % (40.0-51.0) MCV 86.6 fL fL (81.5-99.8) MCH 28.1 pg pg (27.9-34.1) MCHC 32.4 g/dL g/dL (32.4-36.7) RDW 22.1 % H % (11.5-15.2) Plt Count 165 10^3/uL 10^3/uL (150-400) MPV 11.5 fL fL (8.7-11.7) Neut % (Auto) 68.3 % % (39.3-74.2) Lymph % (Auto) 19.3 % % (15.0-45.0) [place] % (Auto) 9.8 % % (4.5-13.0) Eos % (Auto) 1.5 % % (0.6-7.6) Baso % (Auto) 0.7 % % (0.3-1.7) Nucleat RBC Rel Count 0.0 % % (0.0-0.2) Absolute Neuts (auto) 4.87 10^3/uL 10^3/uL (1.70-6.50) Absolute Lymphs (auto) 1.38 10^3/uL 10^3/uL (1.00-3.00) Absolute Monos (auto) 0.70 10^3/uL 10^3/uL (0.30-0.80) Absolute Eos (auto) 0.11 10^3/uL 10^3/uL (0.03-0.40) Absolute Basos (auto) 0.05 10^3/uL 10^3/uL (0.02-0.10) Absolute Nucleated RBC 0.00 10^3/uL 10^3/uL (0-0.01) Immature Gran % 0.4 % % (0.0-1.1) Immature Gran # 0.03 10^3/uL 10^3/uL (0.00-0.10) Platelet Estimate ADEQUATE (ADEQ) Polychromasia 1+ H Hypochromasia 1+ H Microcytic Cells 1+ H Elliptocytes 1+ H Acanthocytes (Spur) 1+ H Sodium 142 mEq/L mEq/L (134-144) Potassium 4.8 mEq/L mEq/L (3.5-5.2) Chloride 106 mEq/L mEq/L (97-110) Carbon Dioxide 17 mEq/l L mEq/l (22-31) Anion Gap 19 mEq/L H mEq/L (8-16) BUN 56 mg/dL H mg/dL (7-23) Creatinine 1.6 mg/dL H mg/dL (0.7-1.3) Estimated GFR 41 Glucose 206 mg/dL H mg/dL (70-100) Calcium 10.0 mg/dL mg/dL (8.5-10.4) Total Bilirubin 1.1 mg/dL mg/dL (0.1-1.4) AST 62 IU/L H IU/L (17-59) ALT 108 IU/L H IU/L (21-72) Alkaline Phosphatase 224 IU/L H IU/L (38-126) Creatine Kinase 24 IU/L IU/L (0-224) Troponin I 0.280 ng/mL H ng/mL (0-0.034) NT-Pro-B Natriuret Pep 19131 pg/mL H pg/mL (0-450) Total Protein 7.5 g/dL g/dL (6.3-8.2) Albumin 4.5 g/dL g/dL (3.5-5.0) Medications Given: Discontinued Medications Sodium Chloride (Ns) 500 mls @ 0 mls/hr IV ONCE ONE; Wide Open PRN Reason: Protocol Stop: 10/02/16 01:06 Last Admin: 10/02/16 01:30 Dose: 500 mls Departure - Departure Disposition: [facility] Clinical Impression: Elevated troponin, Shortness of breath Coronary artery disease Qualifiers: Coronary Disease-Associated Artery/Lesion type: unspecified vessel or lesion type [place] vs. transplanted heart: stebbins heart Associated angina: without angina Qualified Code(s): I25.10 - Atherosclerotic heart disease of stebbins coronary artery without angina pectoris Acute renal failure Qualifiers: Acute renal failure type: unspecified Qualified Code(s): N17.9 - Acute kidney failure, unspecified
--- NOTE | 2016-10-01 23:22 | CPEKG ---
Heart Rate: 91 RR Interval: 659 P-R Interval: 187 QRSD Interval: 134 QT Interval: 420 QTC Interval: 517 P [place]vis[place]: 99 QRS [place]: 110 T Wave [place]: -81 EKG Severity - ABNORMAL ECG - EKG Impression: ATRIAL-SENSED VENTRICULAR-PACED COMPLEXES EKG Impression: NONSPECIFIC INTRAVENTRICULAR CONDUCTION DELAY EKG Impression: MINIMAL ST DEPRESSION, LATERAL LEADS Electronically Signed By: Mukesh Damon 02-Oct-2016 07:52:33
[2016-10-02 00:10] LABS: % IMMATURE GRANULYOCYTES 0.4 % (0.0-1.1); ABSOLUTE IMMATURE GRANULOCYTES 0.03 10^3/uL (0.00-0.10); ADD DIFF? NO; ADD MORPH? YES; ADD SCAN? NO; ATYPICAL LYMPHOCYTE FLAG 10 (0-99); FRAGMENT RBC FLAG 20 (0-99); HEMATOCRIT 37.6 % (40.0-51.0); HEMOGLOBIN 12.2 g/dL (13.7-17.5); LEFT SHIFT FLG 0 (0-99); LIPEMIA HEMOLYSIS FLAG 80 (0-99); MEAN CELL HEMOGLOBIN 28.1 pg (27.9-34.1); MEAN CELL HEMOGLOBIN CONCENTR. 32.4 g/dL (32.4-36.7); MEAN CELL VOLUME 86.6 fL (81.5-99.8); MEAN PLATELET VOLUME 11.5 fL (8.7-11.7); PLATELET CLUMPS FLAG 0 (0-99); PLATELET COUNT 165 10^3/uL (150-400); RED BLOOD CELL COUNT 4.34 10^6/uL (4.40-6.38)
[2016-10-02 00:13] LABS: RED CELL DISTRIBUTION WIDTH 22.1 % (11.5-15.2)
[2016-10-02 00:49] LABS: ALANINE AMINOTRANSFERASE 108 IU/L (21-72); ALBUMIN 4.5 g/dL (3.5-5.0); ALKALINE PHOSPHATASE 224 IU/L (38-126); ANION GAP 19 mEq/L (8-16); ASPARTATE AMINOTRANSFERASE 62 IU/L (17-59); BILIRUBIN,TOTAL 1.1 mg/dL (0.1-1.4); CARBON DIOXIDE 17 mEq/l (22-31); CHLORIDE 106 mEq/L (97-110); CREATININE 1.6 mg/dL (0.7-1.3); GLOMERULAR FILTRATION RATE 41; GLUCOSE 206 mg/dL (70-100); POTASSIUM 4.8 mEq/L (3.5-5.2); SODIUM 142 mEq/L (134-144); TOTAL PROTEIN 7.5 g/dL (6.3-8.2)
[2016-10-02] MEDS ORDERED: NS 500 ML IV ONE (01:05)
[2016-10-02 01:09] LABS: ACANTHOCYTES 1+; ELLIPTOCYTES 1+; HYPOCHROMIA 1+; MICROCYTES 1+; PLATELET ESTIMATE ADEQUATE (ADEQ); POLYCHROMASIA 1+
[2016-10-02] MEDS ORDERED: ONDANSETRON 4 MG/2 ML VIAL IVP PRN (01:41)
[2016-10-02] MEDS ORDERED: ONDANSETRON DISINTEGRATING 4 MG TAB PO PRN (01:41)
[2016-10-02] MEDS ORDERED: ACETAMINOPHEN 325 MG TAB PO PRN (01:41)
[2016-10-02] MEDS ORDERED: oxyCODONE IR 5 MG TAB PO PRN (01:41)
[2016-10-02 04:47] LABS: COLOR YELLOW; LEUKOCYTE ESTERASE,URINE NEGATIVE (NEGATIVE); NITRITE,URINE NEGATIVE (NEGATIVE)
[2016-10-02 04:51] LABS: HYALINE CASTS 25-50 /lpf (0-1); MUCUS TRACE /lpf (NONE-1+)
--- NOTE | 2016-10-02 05:09 | GHP ---
[f rep st] HISTORY AND PHYSICAL DATE OF ADMISSION: 10/02/2016 CHIEF COMPLAINT: Fast heartbeat. HISTORY OF PRESENT ILLNESS: This is an 85-year-old man, who presents to the ED telling me that he h ad a fast heartbeat. He is somewhat of a poor historian. The history I am getting from him is diff erent than the history that he gave to Dr. Bueno. He tells me that he wanted to come to see what modern medicine would have to offer for the fast heartbeat that he has been experiencing. This has just started today. Not really associated with any pain. Per ED report, he said that he wanted to come spend 1 night into the hospital as he had had a distressful day due to an autistic grandson. A pparently, this had caused an episode of palpitations, which he was telling me about. Per bathhouse keeper s, his house was disorganized, smelled of urine, and his 's daughter felt that he was not being cared for properly. He had been discharged to a alf after being here in July. He had been home for about 1 month. He has multiple medical problems, overall. PAST MEDICAL/SURGICAL HISTORY: 1. Coronary artery disease. He had an LAD stent placed in March of 2016. 2. Pacemaker due to heart block. 3. Diabetes. 4. BPH. 5. Chronic CHF with an ejection fraction of 45%. 6. Pulmonary hypertension. 7. Mitral regurgitation. 8. Mild cognitive impairment. 9. Pleural effusion. 10. Chronically elevated troponin. 11. Severe protein-calorie malnutrition. MEDICATIONS: Please see medication reconciliation. ALLERGIES: Diphenhydramine and procedural sedation. SOCIAL HISTORY: He lives at home with his . FAMILY HISTORY: Parents are . REVIEW OF SYSTEMS: A 10-point review of systems is conducted and is negative except per HPI. PHYSICAL EXAMINATION: VITAL SIGNS: Blood pressure 122/98, heart rate 91, respiration rate 16, satu rating 96% on room air, temperature 36.8. GENERAL: The patient is a pleasant elderly man, who is l irma in bed comfortable, in no acute distress. HEENT: Shows him to be normocephalic, atraumatic. CARDIOVASCULAR: Shows regular rate and rhythm. No murmurs, rubs, or gallops. PULMONARY: Shows agustin ngs clear to auscultation bilaterally. ABDOMEN: Soft, nontender, nondistended. SKIN: Shows no ra sh. : Shows no [place]. NEUROLOGIC: Shows him to be alert and oriented x3. He is moving all ext remities. PSYCHIATRIC: Shows normal mood and affect. LABORATORY DATA: Hemoglobin is 12. Creatinine is 1.6. AST is 62, ALT is 108. Troponin is 0.2. DATA: 1. I discussed this with Dr. Bueno. Will admit to the PCU. 2. Chest x-ray, which I personally reviewed and interpreted, shows him to have a pacemaker in place . He is borderline cardiomegaly. There is a flattened diaphragm. 3. ECG, which I personally viewed and interpreted, shows AV-paced rhythm, atrial sensed. IMPRESSION AND PLAN: This is an 85-year-old man admitted to the hospital out of concern for his olena e living conditions. 1. Concern for failure to thrive: Will need to get Case Management involved to find out his true l iving situation and the amount of care that he is getting. I am really unsure at this point. He wa s discharged to a care home facility. He had been home for about 1 month prior to his represe ntation. 2. Acute kidney injury: His creatinine is above baseline. He is getting a little bit of hydration here in the ED. I will not give him any more given his congestive heart failure. Will recheck thi s in the morning. 3. Elevated troponin: This is quite chronic. He is not having any chest pain. I will get 1 addit ional troponin in the morning. If it is flat, would quit checking. 4. Elevated LFTs: He has had elevated LFTs in the past, though not always. I wonder if this is he patic congestion. I have gotten a BNP. Those have been very high recently, around 10,000 to 11,000 . 5. Palpitations: Will monitor him on telemetry. 6. Coronary artery disease, last stent was March of 2016: Continue his medicines. He is not hav ing any chest pain right now. 7. Diabetes mellitus: He is on metformin. Will discontinue this for now without doing too aggress esmer blood sugar checks. 8. Congestive heart failure: Appears compensated on exam, though BNP is pending. 9. Severe protein-calorie malnutrition. 10. Valvular heart disease, including mitral regurgitation. 11. Code status is full. 12. I will place a palliative care consult as he was seen by Palliative Care on his last admission. /[id number]/MODL
[2016-10-02 06:20] LABS: % IMMATURE GRANULYOCYTES 0.4 % (0.0-1.1); ABSOLUTE IMMATURE GRANULOCYTES 0.03 10^3/uL (0.00-0.10); ADD DIFF? NO; ADD MORPH? YES; ADD SCAN? NO; ATYPICAL LYMPHOCYTE FLAG 0 (0-99); FRAGMENT RBC FLAG 20 (0-99); HEMATOCRIT 38.2 % (40.0-51.0); HEMOGLOBIN 12.3 g/dL (13.7-17.5); LEFT SHIFT FLG 0 (0-99); LIPEMIA HEMOLYSIS FLAG 80 (0-99); MEAN CELL HEMOGLOBIN 28.5 pg (27.9-34.1); MEAN CELL HEMOGLOBIN CONCENTR. 32.2 g/dL (32.4-36.7); MEAN CELL VOLUME 88.6 fL (81.5-99.8); PLATELET CLUMPS FLAG 10 (0-99); PLATELET COUNT 169 10^3/uL (150-400); RED BLOOD CELL COUNT 4.31 10^6/uL (4.40-6.38)
[2016-10-02 06:22] LABS: RED CELL DISTRIBUTION WIDTH 22.2 % (11.5-15.2)
[2016-10-02 06:30] LABS: ANION GAP 17 mEq/L (8-16); CARBON DIOXIDE 19 mEq/l (22-31); CHLORIDE 107 mEq/L (97-110); CREATININE 1.5 mg/dL (0.7-1.3); GLOMERULAR FILTRATION RATE 45; GLUCOSE 176 mg/dL (70-100); POTASSIUM 4.7 mEq/L (3.5-5.2); SODIUM 143 mEq/L (134-144)
[2016-10-02 06:42] LABS: TROPONIN I 0.263 ng/mL (0-0.034)
[2016-10-02 06:59] LABS: HYPOCHROMIA 1+; KERATOCYTES 1+; MACROCYTES 1+; MICROCYTES 1+; PLATELET ESTIMATE ADEQUATE (ADEQ); POLYCHROMASIA 1+; SCHISTOCYTES 1+
[2016-10-02 07:00] LABS: ACANTHOCYTES 1+; ELLIPTOCYTES 1+
[2016-10-02] MEDS: HEPARIN 5,000 UNIT/0.5 ML SYR SC SCH ×2 (07:49→14:53)
[2016-10-02 11:38] VITALS: PULSE 99
[2016-10-02] MEDS ORDERED: LORazepam 0.5 MG TAB PO PRN (13:46)
[2016-10-02] MEDS ORDERED: D5W IV SCH (14:00)
[2016-10-02] MEDS ORDERED: LORAZEPAM IV SCH (14:00)
[2016-10-02 15:18] VITALS: BP 138/102; RESP 13; TEMP 97.1; O2SAT 99
--- NOTE | 2016-10-02 15:25 | PDPCPN ---
Palliative Care Progress Note Assessment/Plan: Referring provider: Dr Crespo Reason for consult: Complex medical decision making Symptom control HPI: William Wallace is a 85 yo with PMH CHF, pul HTN, CAD, DM2, BPH, chronic renal failures and mild cognitive impairment admitted to the hospital for heart palpitation and dyspnea. His autistic grandson was visiting yesterday and felt palpitations from stress at home. Was brought to the hospital by paramedics who stated the house was disorganized and smelled of urine. On admission BNP slightly elevated with elevated trop and acute on chronic kidney disease. Vitals stable on room air. Feeling better today with less SOB. Palliative care consulted for complex medical decision making. Met with William, Sadia, and daughter Dominga at the bedside this afternoon. Discussed concerns over not having proper care at home with malnutrition, multiple admissions, worsening of chronic diseases, and reports of unsafe living conditions. William and Sadia feel they like being as independent as possible at home and do not need help. We discussed without medical support William could continue to decline and as a result of continued progression of his chronic medical diseases. His goal is to live and for life prolongation and is now willing to accept some level of help at home. Dominga had concerns over both parents having memory loss which leads to them not taking medications as prescribed and repeated hospitalizations. William feels he does get SOB at times with walking which leads to increased anxiety. He trusts Sadia to make decisions for him. Discussed at length discharge plan with HHC as well as meals on wheels and private duty help. They agree to this with expectation that ongoing changes could happen due to their changing needs. Assessment: Physical: - Pain: none noted - tylenol PRN - Dyspnea: at times - oxygen as needed (has at home and beneficial when SOB) - consider very low dose roxanol 1mg PO Q2hr PRN for ongoing dyspnea - Poor appetite: states he does not want to get "fat" - encourage general appetite for nutrition Emotional/psychological: Anxiety: significant especially with stressors of family - consider very low dose ativan or other benzo to help PRN Advanced Care Planning: Is patient decisional?: No Code Status: Full MD POA: sadia is MDPOA. Unsure if this is the best for William Plan: Home with HHC, meals on wheels, and private duty INSTITUTION[employer] COORDINATOR for housekeeping. APS was called by paramedics due to condition of the house. Needs close outpatient follow up for continued support. Subjective: sometimes I feel short of breath Objective: Social History: to Sadia. Born in [place]. 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 Medication list reviewed ROS: General: fatigue, weakness, weight loss ENT: negative Resp: dyspnea GI: poor appetite : negative MS: negative Skin: negative Neuro: negative Psych: memory loss Functional assessment: PPS: 60% Functional status: needs assistance with ADLs. Vital Signs Temp Pulse Resp BP Pulse Ox 36.2 C 99 13 138/102 H 99 10/02/16 15:17 10/02/16 15:17 10/02/16 15:17 10/02/16 15:17 10/02/16 15:17 Laboratory Results 10/02/16 06:04 10/02/16 06:04 10/01/16 10/02/16 10/03/16 05:59 05:59 05:59 Intake Total 500 Output Total 400 Balance 100 Physical Exam - Physical Exam General Appearance: alert, no apparent distress Respiratory: No accessory muscle use, No decreased breath sounds Skin: normal color, warm/dry Extremities: No pedal edema Neuro/Psych: alert, oriented x 3, other (some forgetfullness) ICD10 Worksheet Patient Problems: Problems Problem Status Onset Acute renal failure Acute Coronary artery disease Acute Elevated troponin Acute Shortness of breath Acute Acute exacerbation of congestive heart failure Acute CHF (congestive heart failure) Acute Chest pain Acute Chronic Disease Mgmt/Transitional Care Acute Chronic Disease Mgmt/Transitoinal Care Acute Diabetes mellitus with hyperglycemia Acute Elevated troponin Acute Essential (primary) hypertension Acute Hyperlipidemia Acute Near syncope Acute Pacemaker Acute Palliative care encounter Acute S/P coronary artery stent placement Acute TIA (transient ischemic attack) Acute Weakness Acute
--- NOTE | 2016-10-02 15:42 | PDIAF ---
- Diagnosis Diagnosis: Panic attack, CHF Code Status: Full Code - Medication Management Discharge Medications: Medications to Continue on Transfer Clopidogrel Bisulfate [Plavix (*)] 75 mg PO DAILY 07/10/16 [Last Taken 10/01/16] Furosemide [Lasix 40 MG (*)] 40 mg PO DAILY 07/10/16 [Last Taken 10/01/16] Levothyroxine [Synthroid 50 mcg (*)] 50 mcg PO DAILY 07/10/16 [Last Taken ] Lisinopril [Zestril 5 mg (*)] 2.5 mg PO DAILY 07/10/16 [Last Taken 10/01/16] Nitroglycerin [Nitrostat 0.4 mg (*)] 0.4 mg SL AD PRN 07/10/16 [Last Taken Unknown] Simvastatin 5 mg PO HS 07/10/16 [Last Taken 10/01/16] Spironolactone [Aldactone 25 MG (*)] 25 mg PO DAILY #30 tab 07/16/16 [Last Taken 10/01/16] metFORMIN HCL [Glucophage 500 mg (*)] 500 mg PO BIDMEAL 07/30/16 [Last Taken 18:00] Aspirin [Aspirin 81mg (*)] 81 mg PO DAILY 10/02/16 [Last Taken 10/01/16] LORazepam [Ativan (*)] 0.5 mg PO Q4HRS PRN #7 tab 10/02/16 [Last Taken Unknown] MIRTAZAPINE [Remeron 7.5 mg] 7.5 mg PO HS 10/02/16 [Last Taken 10/01/16] Discharge Medications: Refer to the Discharge Home Medication list for PRN reason. - Orders Services needed: Home Care, Registered Nurse, Master Plush Brusher, Physical Therapy, Occupational Therapy Home Care Face to Face: I certify that this patient was under my care and that I had the required [id number] encounter meeting the encounter requirements on the discharge day. My findings support the fact that the patient is homebound as defined in CMS Chapter 7 Medicare Benefits Manual 30.1.1, The condition of the patient is such that there exists a normal inability to leave home and consequently, leaving home would require a considerable and taxing effort. Diet Recommendation: sodium restricted Weigh Patient: daily Equipment: Home safety eval for adaptive equipment Additional: Use Ativan (lorazepam) for panic/anxiety attacks (palpitations and shortness of breath). Do not take more that once per day. If the ativan works well for this, please see Dr. Coelho for further refills - Labs/Radiology BMP Date: 10/04/16 - Follow Up Care Current Providers and Referrals: MELISSA COELHO [Primary Care Provider] - As per Instructions
[2016-10-02] MEDS ORDERED: metFORMIN HCL 500 MG TAB PO SCH (18:00)
[2016-10-02] MEDS ORDERED: MIRTAZAPINE 7.5 MG PO SCH (21:00)
[2016-10-02] MEDS ORDERED: PRAVASTATIN SODIUM 10 MG TAB PO SCH (21:00)
[2016-10-02] MEDS ORDERED: MIRTAZAPINE 15 MG TAB PO SCH (21:00)
[2016-10-02] MEDS ORDERED: SIMVASTATIN 5 MG PO SCH (21:00)
[2016-10-03] MEDS ORDERED: LISINOPRIL 5 MG TAB PO SCH (09:00)
[2016-10-03] MEDS ORDERED: ASPIRIN 81 MG CHEWABLE TAB PO SCH (09:00)
[2016-10-03] MEDS ORDERED: SPIRONOLACTONE 25 MG TAB PO SCH (09:00)
[2016-10-03] MEDS ORDERED: CLOPIDOGREL BISULFATE 75 MG TAB PO SCH (09:00)
[2016-10-03] MEDS ORDERED: LEVOTHYROXINE 50 MCG TAB PO SCH (09:00)
[2016-10-03] MEDS ORDERED: FUROSEMIDE 40 MG TAB PO SCH (09:00)
--- NOTE | 2016-10-03 10:13 | GDS ---
[f rep st] DISCHARGE SUMMARY DISCHARGE DIAGNOSES: 1. Panic attack with recurrent shortness of breath and palpitations. 2. Chronically elevated troponin. 3. [id number]-[id number] systolic and diastolic congestive heart failure. 4. Coronary artery disease, status post stent to the LAD. 5. Pacemaker for heart block. 6. Diabetes. HISTORY: The patient is an 85-year-old man known very well to me for recurrent admissions for [id number]-ow-[id number] congestive heart failure. His CHF is not medically difficult to control, but it is more of the social situation, living at home with his , that has led to recurrent admissions as they have had difficulty keeping his medications straight and following physician recommendations. When he goes to [facility], his CHF is easily controlled. He has now been back home from [facility] for approximately 1 month. He has been noted on previous hospitalizations to have recurrent spontaneous attacks of shortness of breath and tachycardia which are anxiety related. He presented to the hospital with a chief complaint of palpitations. He has a very autistic grandson who causes him quite a bit of anxiety when he is visiting. It was during a visit from the grandson that the palpitations occurred. He had recurrence of symptoms in the hospital while the grandson was in the room. He has been worked up extensively in the past including repeat echocardiograms and cardiac catheterizations, and speaking with his skewer up, Dr. Darby, his cardiac disease is easy to control and fully worked up, and the difficulty has been outpatient compliance. I do believe these recurrent episodes of tachycardia and shortness of breath are related to anxiety and panic. He was given a small dose of Ativan 0.5 mg in the hospital with an excellent result. He immediately felt great. He shortly thereafter felt great desire to go home. Palliative Care knows him very well and again met with him and his daughter in an attempt to try to get them to understand the gravity of his disease and the necessity for compliance. They do desire ongoing full code status. They are now accepting Home Health which they have refused in the past. They have also accepted private pay caregivers and Meals on Wheels. [facility], and [facility] has been notified. They have a daughter who is quite attentive to their needs, however, also frequently comes into conflict with her parents and desiring to end there autonomy and decision making to maintain independent living. He was perhaps a little dehydrated on presentation, but we did not want to get too aggressive with IV fluid given his propensity to CHF. I anticipate this will improve over the next couple of days, and I will order repeat laboratory studies. The patient and his are very anxious for discharge home, and he was felt to be near his baseline. DISCHARGE MEDICATIONS: Please see computer record for full detailed list. New medications: Ativan 0.5 mg p.o. daily as needed for panic attack. I only dispensed 7 tablets. I refer them to primary care for further management of his anxiety disorder. I spoke with Dr. Darby who feels his cardiac disease is stable when his medications are taken as prescribed. ADDITIONAL DISCHARGE INSTRUCTIONS: 1. Home health, PT/OT, VNS with home safety evaluation for adaptive equipment. 2. Sodium restricted diet. 3. Do not take Ativan more than once per day, and please see primary care, Dr. Matias, for further management of panic attacks and anxiety disorder. The patient was seen and examined by me on the day of discharge. /[id number]/MODL MTDD
== END 2016-10-02 16:50 | disposition home health service (06) ==
LOC: EDUNIT# → F2W 10-02 02:26
PROVIDERS: ADMIT Student in an Organized Health Care Education/Training Program; ATTEND Student in an Organized Health Care Education/Training Program
DX: R53.1 Weakness (principal); F41.0 Panic disorder [episodic paroxysmal anxiety]; N17.9 Acute kidney failure, unspecified; I50.33 Acute on chronic diastolic (congestive) heart failure; E43 Unspecified severe protein-calorie malnutrition; N18.9 Chronic kidney disease, unspecified; I13.0 Hypertensive heart and chronic kidney disease with heart failure and stage 1 through stage 4 chronic kidney disease, or unspecified chronic kidney disease; E11.22 Type 2 diabetes mellitus with diabetic chronic kidney disease; I25.10 Atherosclerotic heart disease of native coronary artery without angina pectoris; E78.5 Hyperlipidemia, unspecified; I27.2 Other secondary pulmonary hypertension; F03.90 Unspecified dementia, unspecified severity, without behavioral disturbance, psychotic disturbance, mood disturbance, and anxiety; Z95.5 Presence of coronary angioplasty implant and graft; Z95.0 Presence of cardiac pacemaker
CPT/HCPCS: 71020; 93005; 97161; 97166; 97535; 99285; G0378; G8978; G8979; G8987; G8988

== ENCOUNTER 2016-10-20 01:18 | Inpatient (IN) | payer OTHER, MEDICARE ==
[2016-10-20] MEDS ORDERED: LORazepam 0.5 MG TAB PO ONE (01:38)
--- NOTE | 2016-10-20 01:39 | EDPHY ---
H & P Time Seen by Provider: 10/20/16 01:26 HPI/ROS: Chief Complaint: Shortness of breath, anxiety HPI: 85-year-old male with a significant past medical history of congestive heart failure, pacemaker, anxiety. Patient called 911 this morning for increasing shortness of breath. He lives independently with his . He is limited Romansh-speaking. Patient is a very poor historian and is telling me that he is having difficulty breathing. He states he has been taking his medications. No recent fevers or chills. No cough. Remainder of history is unobtainable given the language barrier and some confusion. I have attempted to get a history with a drone software development engineer on the phone but the drone software development engineer is unable to understand what he is saying and the patient continues to try to speak in Romansh. Unobtainable secondary to the language barrier PMH: Congestive heart failure, pacemaker, Social History: No smoking, no alcohol, no recreational drug use Family History: non-contributory Physical Exam: Gen: Awake, Alert, anxious appearing HEENT: Nose: no rhinorrhea Eyes: PERRLA, EOMI Mouth: Moist mucosa Neck: Supple, no JVD Chest: nontender, markedly diminished breath sounds on the right base Heart: S1, S2 normal, no murmur Abd: Soft, non-tender, no guarding Back: no CVA tenderness, no midline tenderness Ext: Minimal edema, non-tender Skin: no rash Neuro: CN II-XII intact, Sensation grossly intact, Strength 5/5 in bilateral upper and lower extremities - Medical/Surgical History Hx Asthma: No Hx Chronic Respiratory Disease: No Hx Diabetes: Yes Hx Cardiac Disease: Yes Hx Renal Disease: No Hx Cirrhosis: No Hx Alcoholism: No Hx HIV/AIDS: No Hx Splenectomy or Spleen Trauma: No Other PMH: CAD with stents, HTN, hyperlipidemia, 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 intollerence to benadryl/procedural sedation, diabetes, bph, chronic systolic HF EF of 45%, pulmonary HTN, pleural effusions, chronic troponin elevation, malnutrion - Social History Smoking Status: Never smoked Constitutional: Initial Vital Signs Temperature (C) 36.7 C 10/20/16 02:22 Heart Rate 100 10/20/16 02:22 Respiratory Rate 40 H 10/20/16 02:22 Blood Pressure 134/74 H 10/20/16 02:22 O2 Sat (%) 88 L 10/20/16 02:22 O2 Delivery Mode Room Air O2 (L/minute) 2 Allergies/Adverse Reactions: diphenhydramine [From Benadryl] Allergy (Verified 10/01/16 23:13) "procedural sedation" Allergy (Uncoded 07/10/16 18:31) Home Medications: Medication Instructions Recorded Clopidogrel Bisulfate [Plavix (*)] 75 mg PO DAILY 07/10/16 Furosemide [Lasix 40 MG (*)] 40 mg PO DAILY 07/10/16 Levothyroxine [Synthroid 50 mcg 50 mcg PO DAILY 07/10/16 (*)] Lisinopril [Zestril 5 mg (*)] 2.5 mg PO DAILY 07/10/16 Nitroglycerin [Nitrostat 0.4 mg 0.4 mg SL AD PRN 07/10/16 (*)] Simvastatin 5 mg PO HS 07/10/16 Spironolactone [Aldactone 25 MG 25 mg PO DAILY #30 tab 07/16/16 (*)] metFORMIN HCL [Glucophage 500 mg 500 mg PO BIDMEAL 07/30/16 (*)] Aspirin [Aspirin 81mg (*)] 81 mg PO DAILY 10/02/16 LORazepam [Ativan (*)] 0.5 mg PO Q4HRS PRN #7 tab 10/02/16 MIRTAZAPINE [Remeron 7.5 mg] 7.5 mg PO HS 10/02/16 Medical Decision Making - Diagnostics Imaging Results: New right-sided effusion compared to an x-ray from 09/2016. Imaging: I viewed and interpreted images myself ED Course/Re-evaluation: 85-year-old male with a history of chronically elevated troponin, anxiety, CHF with difficult management. Coming in with shortness of breath morning. Does very difficult history given the patient's broken anguish and I have been unsuccessful in communicating with him via drone software development engineer over the telephone. He is complaining of shortness of breath this morning. At rest he is not tachypneic nor tachycardic however when I examine him he becomes more tachypneic and tachycardic but his oxygen saturations are satting well. He does have a new effusion [place] [address] which was with his prior presentation. He is not significantly edematous and does not have any other findings of ulises pulmonary edema. Given the complex history, the new effusion in a difficult language barrier he will be admitted to the Step-Down Unit by Dr. Yanez for further care. - Data Points Laboratory Results: Laboratory Results 10/20/16 01:40 10/20/16 01:40 10/20/16 10/20/16 01:40 01:40 WBC 8.74 10^3/uL 10^3/uL (3.80-9.50) RBC 5.36 10^6/uL 10^6/uL (4.40-6.38) Hgb 15.2 g/dL g/dL (13.7-17.5) Hct 48.4 % % (40.0-51.0) MCV 90.3 fL fL (81.5-99.8) MCH 28.4 pg pg (27.9-34.1) MCHC 31.4 g/dL L g/dL (32.4-36.7) RDW 20.5 % H % (11.5-15.2) Plt Count 207 10^3/uL 10^3/uL (150-400) MPV 11.9 fL H fL (8.7-11.7) Neut % (Auto) 71.7 % % (39.3-74.2) Lymph % (Auto) 20.3 % % (15.0-45.0) [place] % (Auto) 5.9 % % (4.5-13.0) Eos % (Auto) 1.3 % % (0.6-7.6) Baso % (Auto) 0.5 % % (0.3-1.7) Nucleat RBC Rel Count 0.0 % % (0.0-0.2) Absolute Neuts (auto) 6.27 10^3/uL 10^3/uL (1.70-6.50) Absolute Lymphs (auto) 1.77 10^3/uL 10^3/uL (1.00-3.00) Absolute Monos (auto) 0.52 10^3/uL 10^3/uL (0.30-0.80) Absolute Eos (auto) 0.11 10^3/uL 10^3/uL (0.03-0.40) Absolute Basos (auto) 0.04 10^3/uL 10^3/uL (0.02-0.10) Absolute Nucleated RBC 0.00 10^3/uL 10^3/uL (0-0.01) Immature Gran % 0.3 % % (0.0-1.1) Immature Gran # 0.03 10^3/uL 10^3/uL (0.00-0.10) Platelet Estimate ADEQUATE (ADEQ) Polychromasia 1+ H Hypochromasia 1+ H Elliptocytes 1+ H Acanthocytes (Spur) 1+ H Sodium 140 mEq/L mEq/L (134-144) Potassium 5.1 mEq/L mEq/L (3.5-5.2) Chloride 101 mEq/L mEq/L (97-110) Carbon Dioxide 17 mEq/l L mEq/l (22-31) Anion Gap 22 mEq/L H mEq/L (8-16) BUN 52 mg/dL H mg/dL (7-23) Creatinine 1.8 mg/dL H mg/dL (0.7-1.3) Estimated GFR 36 Glucose 211 mg/dL H mg/dL (70-100) Calcium 10.2 mg/dL mg/dL (8.5-10.4) Troponin I 0.215 ng/mL H ng/mL (0-0.034) NT-Pro-B Natriuret Pep 84482 pg/mL H pg/mL (0-450) Medications Given: Discontinued Medications Lorazepam (Ativan) 0.5 mg PO EDNOW ONE Stop: 10/20/16 01:39 Last Admin: 10/20/16 02:02 Dose: 0.5 mg Departure - Departure Disposition: [facility] Inpatient Acute Clinical Impression: CHF (congestive heart failure), Pleural effusion Condition: Fair Referrals: Patient,NotPresent [Unknown] - As per Instructions
[2016-10-20 01:47] LABS: % IMMATURE GRANULYOCYTES 0.3 % (0.0-1.1); ABSOLUTE IMMATURE GRANULOCYTES 0.03 10^3/uL (0.00-0.10); ADD DIFF? NO; ADD MORPH? YES; ADD SCAN? NO; ATYPICAL LYMPHOCYTE FLAG 0 (0-99); FRAGMENT RBC FLAG 20 (0-99); HEMATOCRIT 48.4 % (40.0-51.0); HEMOGLOBIN 15.2 g/dL (13.7-17.5); LEFT SHIFT FLG 0 (0-99); LIPEMIA HEMOLYSIS FLAG 80 (0-99); MEAN CELL HEMOGLOBIN 28.4 pg (27.9-34.1); MEAN CELL HEMOGLOBIN CONCENTR. 31.4 g/dL (32.4-36.7); MEAN CELL VOLUME 90.3 fL (81.5-99.8); MEAN PLATELET VOLUME 11.9 fL (8.7-11.7); PLATELET CLUMPS FLAG 20 (0-99); PLATELET COUNT 207 10^3/uL (150-400); RED BLOOD CELL COUNT 5.36 10^6/uL (4.40-6.38)
[2016-10-20 01:58] LABS: RED CELL DISTRIBUTION WIDTH 20.5 % (11.5-15.2)
[2016-10-20 02:07] LABS: ANION GAP 22 mEq/L (8-16); CALCIUM 10.2 mg/dL (8.5-10.4); CARBON DIOXIDE 17 mEq/l (22-31); CHLORIDE 101 mEq/L (97-110); CREATININE 1.8 mg/dL (0.7-1.3); GLOMERULAR FILTRATION RATE 36; GLUCOSE 211 mg/dL (70-100); POTASSIUM 5.1 mEq/L (3.5-5.2); SODIUM 140 mEq/L (134-144)
[2016-10-20 02:34] LABS: ACANTHOCYTES 1+; ELLIPTOCYTES 1+; HYPOCHROMIA 1+; PLATELET ESTIMATE ADEQUATE (ADEQ); POLYCHROMASIA 1+
[2016-10-20 02:39] LABS: TROPONIN I 0.215 ng/mL (0-0.034)
--- NOTE | 2016-10-20 02:52 | CPEKG ---
Heart Rate: 102 RR Interval: 588 P-R Interval: 161 QRSD Interval: 132 QT Interval: 376 QTC Interval: 490 P [place]: 0 QRS [place]: 106 T Wave [place]: -52 EKG Severity - ABNORMAL ECG - EKG Impression: VENTRICULAR-PACED COMPLEXES Electronically Signed By: Wellington Barron 21-Oct-2016 05:31:51
[2016-10-20] MEDS ORDERED: NS 500 ML IV ONE (03:38)
[2016-10-20] MEDS ORDERED: LIDOCAINE 2% JELLY 20 ML (UROJECT) ONE (03:42)
[2016-10-20] MEDS ORDERED: LIDOCAINE 2% JELLY 20 ML (UROJECT) UR ONE (03:42)
[2016-10-20 03:47] LABS: LACGHOST ORDER
[2016-10-20 04:02] LABS: BICARBONATE 13 mEq/L (22-26); MEASURED OXYGEN SATURATION 95 % (92-95); PCO2 22 mmHg (34-38); PO2 85 mmHg (65-75); TCO2 14 mEq/L (23-27)
[2016-10-20 04:10] LABS: COLOR YELLOW; LEUKOCYTE ESTERASE,URINE NEGATIVE (NEGATIVE); NITRITE,URINE NEGATIVE (NEGATIVE)
[2016-10-20 04:15] LABS: BACTERIA TRACE /hpf (NONE SEEN); HYALINE CASTS 15-25 /lpf (0-1); MUCUS TRACE /lpf (NONE-1+)
[2016-10-20] MEDS ORDERED: ONDANSETRON 4 MG/2 ML VIAL IVP PRN (04:54)
[2016-10-20] MEDS ORDERED: ACETAMINOPHEN 325 MG TAB PO PRN (04:54)
[2016-10-20] MEDS ORDERED: ONDANSETRON DISINTEGRATING 4 MG TAB PO PRN (04:54)
--- NOTE | 2016-10-20 05:12 | PDGENHP ---
History and Physical - Chief Complaint Tachypnea - History of Present Illness 85 yo Ukranian M w/ hx of CHF, DM, CAD, CHB s/p PPM presents with complaints of difficulty breathing. Patient is Ukranian speaking only and cannot converse in [place]. I attempted to use the Ukranian language interpreter service but the patient would not respond to the language interpreter despite multiple attempts. No family is at bedside to help with translation. Visually, the patient has intermittent bouts of tachypnea with periods of calmness in between. He is hemodynamically stable and oxygenating well on 2L of O2. History Information - Allergies/Home Medication List Allergies/Adverse Reactions: diphenhydramine [From Benadryl] Allergy (Verified 10/01/16 23:13) "procedural sedation" Allergy (Uncoded 07/10/16 18:31) Home Medications: Clopidogrel Bisulfate [Plavix (*)] 75 mg PO DAILY 07/10/16 [Last Taken 10/01/16] Furosemide [Lasix 40 MG (*)] 40 mg PO DAILY 07/10/16 [Last Taken 10/01/16] Levothyroxine [Synthroid 50 mcg (*)] 50 mcg PO DAILY 07/10/16 [Last Taken ] Lisinopril [Zestril 5 mg (*)] 2.5 mg PO DAILY 07/10/16 [Last Taken 10/01/16] Nitroglycerin [Nitrostat 0.4 mg (*)] 0.4 mg SL AD PRN 07/10/16 [Last Taken Unknown] Simvastatin 5 mg PO HS 07/10/16 [Last Taken 10/01/16] metFORMIN HCL [Glucophage 500 mg (*)] 500 mg PO BIDMEAL 07/30/16 [Last Taken 18:00] Aspirin [Aspirin 81mg (*)] 81 mg PO DAILY 10/02/16 [Last Taken 10/01/16] MIRTAZAPINE [Remeron 7.5 mg] 7.5 mg PO HS 10/02/16 [Last Taken 10/01/16] I have personally reviewed and updated: family history, medical history - Past Medical History coronary artery disease, CHF, diabetes type 2, TIA - Surgical History Additional surgical history: Pacemaker placement - Family History Additional family history: Unable to obtain due to language barrier and lack of patient cooperation with language interpreter - Social History Smoking Status: Never smoked Review of Systems Review of Systems: Unable to obtain due to language barrier and lack of patient cooperation with language interpreter. Physical Exam Temp Pulse Resp BP Pulse Ox 36 C 110 H 30 H 121/66 H 100 10/20/16 04:52 10/20/16 04:52 10/20/16 04:52 10/20/16 04:52 10/20/16 04:52 O2 (L/minute) 2 Constitutional: chronically ill appearing, uncomfortable Eyes: PERRL, EOMI Ears, Nose, Mouth, Throat: moist mucous membranes, poor dentition Cardiovascular: no murmur, rub, or gallop, JVD (JVP at angle of mandible), tachycardia, other (feet cool to the touch but easily palpable peripheral pulses ) Peripheral Pulses: 2+: dorsalis-pedis (R), dorsalis-pedis (L) Respiratory: other (Tachypneic with decreased breath sounds at the bases) Gastrointestinal: soft, non-tender abdomen, no palpable masses Skin: warm, normal color Psychiatric: anxious, agitated Lab Data & Imaging Review 10/20/16 06:15 10/20/16 06:15 WBC 8.74 10^3/uL (3.80-9.50) 10/20/16 01:40 RBC 5.36 10^6/uL (4.40-6.38) 10/20/16 01:40 Hgb 15.2 g/dL (13.7-17.5) 10/20/16 01:40 Hct 48.4 % (40.0-51.0) 10/20/16 01:40 MCV 90.3 fL (81.5-99.8) 10/20/16 01:40 MCH 28.4 pg (27.9-34.1) 10/20/16 01:40 MCHC 31.4 g/dL (32.4-36.7) L 10/20/16 01:40 RDW 20.5 % (11.5-15.2) H 10/20/16 01:40 Plt Count 207 10^3/uL (150-400) 10/20/16 01:40 MPV 11.9 fL (8.7-11.7) H 10/20/16 01:40 Neut % (Auto) 71.7 % (39.3-74.2) 10/20/16 01:40 Lymph % (Auto) 20.3 % (15.0-45.0) 10/20/16 01:40 [place] % (Auto) 5.9 % (4.5-13.0) 10/20/16 01:40 Eos % (Auto) 1.3 % (0.6-7.6) 10/20/16 01:40 Baso % (Auto) 0.5 % (0.3-1.7) 10/20/16 01:40 Nucleat RBC Rel Count 0.0 % (0.0-0.2) 10/20/16 01:40 Absolute Neuts (auto) 6.27 10^3/uL (1.70-6.50) 10/20/16 01:40 Absolute Lymphs (auto) 1.77 10^3/uL (1.00-3.00) 10/20/16 01:40 Absolute Monos (auto) 0.52 10^3/uL (0.30-0.80) 10/20/16 01:40 Absolute Eos (auto) 0.11 10^3/uL (0.03-0.40) 10/20/16 01:40 Absolute Basos (auto) 0.04 10^3/uL (0.02-0.10) 10/20/16 01:40 Absolute Nucleated RBC 0.00 10^3/uL (0-0.01) 10/20/16 01:40 Immature Gran % 0.3 % (0.0-1.1) 10/20/16 01:40 Immature Gran # 0.03 10^3/uL (0.00-0.10) 10/20/16 01:40 Platelet Estimate ADEQUATE (ADEQ) 10/20/16 01:40 Polychromasia 1+ H 10/20/16 01:40 Hypochromasia 1+ H 10/20/16 01:40 Elliptocytes 1+ H 10/20/16 01:40 Acanthocytes (Spur) 1+ H 10/20/16 01:40 Puncture Site RIGHT RADIAL 10/20/16 03:55 Patient Temperature 37.0 DEGREES 10/20/16 03:55 pCO2 22 mmHg (34-38) L 10/20/16 03:55 pO2 85 mmHg (65-75) H 10/20/16 03:55 Total CO2 14 mEq/L (23-27) L 10/20/16 03:55 ABG pH 7.39 (7.35-7.45) 10/20/16 03:55 ABG HCO3 13 mEq/L (22-26) L 10/20/16 03:55 ABG O2 Saturation 95 % (92-95) 10/20/16 03:55 ABG Base Excess -10.0 mEq/L (-2.5-2.5) L 10/20/16 03:55 ABG Lactic Acid TNP 10/20/16 03:55 VBG Lactic Acid 6.0 mmol/L (0.7-2.1) H 10/20/16 04:30 Sodium 140 mEq/L (134-144) 10/20/16 01:40 Potassium 5.1 mEq/L (3.5-5.2) 10/20/16 01:40 Chloride 101 mEq/L (97-110) 10/20/16 01:40 Carbon Dioxide 17 mEq/l (22-31) L 10/20/16 01:40 Anion Gap 22 mEq/L (8-16) H 10/20/16 01:40 BUN 52 mg/dL (7-23) H 10/20/16 01:40 Creatinine 1.8 mg/dL (0.7-1.3) H 10/20/16 01:40 Estimated GFR 36 10/20/16 01:40 Glucose 211 mg/dL (70-100) H 10/20/16 01:40 Calcium 10.2 mg/dL (8.5-10.4) 10/20/16 01:40 Troponin I 0.215 ng/mL (0-0.034) H 10/20/16 01:40 NT-Pro-B Natriuret Pep 65783 pg/mL (0-450) H 10/20/16 01:40 Urine Color YELLOW 10/20/16 03:54 Urine Appearance HAZY 10/20/16 03:54 Urine pH 5.0 (5.0-7.5) 10/20/16 03:54 Ur Specific [place] 1.016 (1.002-1.030) 10/20/16 03:54 Urine Protein 2+ (NEGATIVE) H 10/20/16 03:54 Urine Ketones NEGATIVE (NEGATIVE) 10/20/16 03:54 Urine Blood NEGATIVE (NEGATIVE) 10/20/16 03:54 Urine Nitrate NEGATIVE (NEGATIVE) 10/20/16 03:54 Urine Bilirubin NEGATIVE (NEGATIVE) 10/20/16 03:54 Urine Urobilinogen NEGATIVE EU (0.2-1.0) 10/20/16 03:54 Ur Leukocyte Esterase NEGATIVE (NEGATIVE) 10/20/16 03:54 Urine RBC 3-5 /hpf (0-3) H 10/20/16 03:54 Urine WBC 1-3 /hpf (0-3) 10/20/16 03:54 Ur Epithelial Cells TRACE /lpf (NONE-1+) 10/20/16 03:54 Urine Bacteria TRACE /hpf (NONE SEEN) H 10/20/16 03:54 Hyaline Casts 15-25 /lpf (0-1) H 10/20/16 03:54 Urine Mucus TRACE /lpf (NONE-1+) 10/20/16 03:54 Urine Glucose NEGATIVE (NEGATIVE) 10/20/16 03:54 Visualized and Interpreted imaging results: Yes Interpretation: CXR w/l bilateral R>L pleural effusions, dual chamber pacemaker noted EKG Interpretation: Positive for: other (Atrially sensed, V-paced rhythm) Assessment & Plan Assessment: 85 yo M w/ CHF, CKD, CAD, CHB s/p PPM and difficult social situation presents to ED with SOB and found to have b/l pleural effusions and lactic acidosis. Plan: 1. Lactic acidosis - Unclear etiology, no indication of shock (distributive or cardiogenic) noting afebrile, normal WBC, alert, and normal MAPs. Lack of history makes attaining infectious symptoms difficult. CXR does have b/l pleural effusions but no clear infiltrate or consolidation. UA non-infectious. Patient is on metformin at home so Type B lactic acidosis is a possibility, although rare. Lactate 5.7->6 after 500 mL of NS in the ED. - Will cover empirically with Vancomycin and Zosyn for now - Hold metformin 2. AHRF - Mild, oxygenating well on 2L. Could be due to b/l pleural effusions. Will check b/l LE U/S to look for DVT noting Cr 1.8 and CTPE contraindicated. - Lasix 40 IV x1 3. Pleural effusions - He has had b/l pleural effusions in the past, but seem larger on this admission. Will try to diurese; may need thoracentesis if not resolving with diuresis. 4. CHF - Last TTE with EF of 40%, biatrial enlargement, and diastolic dysfunction. Prescribed lisinopril, spironolactone, and furosemide. Review of records notable for very poor medication compliance. Lack of history makes knowledge of recent compliance impossible. BNP 13,000, troponin chronically elevated and stable at 0.2. Difficult volume exam with distended neck veins, pleural effusions, but elevated lactate as well. - Will order TTE - Cardiology consult - Discussed case with dealer development manager Dr. Sharp, will trial furosemide 40 mg IV x1 and assess response 5. LAISHA on CKD - Discharged with serum creatinine of 1.5 on 10/02. Baseline values prior to this appear to be 1.1-1.3. - FeNa, FeUrea ordered 6. Hx of CAD - With hx of multivessel stenting, most recently in March of 2016. Prescribed DAPT with unclear compliance. 7. CHB s/p PPM 8. Social - Well known to case management. Patient and reportedly live in [place] and seem unable to care for themselves. Patient has cyclical pattern of decompensation after discharge home from SNFs. Diet - NPO Ppx - SCDs Code - Full Dispo - Admit to ICU I personally spent 90 minutes of critical care time assessing patient, interpreting test results, coordinating care with nursing staff, and discussing the case with the dealer development manager.
[2016-10-20] MEDS ORDERED: VANCOMYCIN HCL/NORMAL SALINE 250 ML IV ONE (05:30)
[2016-10-20] MEDS ORDERED: PIPERACILLIN/TAZO 2.25 GM/DEX 50 ML IV SCH (06:00)
[2016-10-20] MEDS ORDERED: FUROSEMIDE 40 MG in D5W 50 ML IV ONE (06:10)
[2016-10-20 06:26] LABS: % IMMATURE GRANULYOCYTES 0.3 % (0.0-1.1); ABSOLUTE IMMATURE GRANULOCYTES 0.03 10^3/uL (0.00-0.10); ADD DIFF? NO; ADD MORPH? YES; ADD SCAN? NO; ATYPICAL LYMPHOCYTE FLAG 0 (0-99); FRAGMENT RBC FLAG 20 (0-99); HEMATOCRIT 45.8 % (40.0-51.0); HEMOGLOBIN 14.3 g/dL (13.7-17.5); LEFT SHIFT FLG 0 (0-99); LIPEMIA HEMOLYSIS FLAG 80 (0-99); MEAN CELL HEMOGLOBIN 28.3 pg (27.9-34.1); MEAN CELL HEMOGLOBIN CONCENTR. 31.2 g/dL (32.4-36.7); MEAN CELL VOLUME 90.5 fL (81.5-99.8); MEAN PLATELET VOLUME 12.1 fL (8.7-11.7); PLATELET CLUMPS FLAG 0 (0-99); PLATELET COUNT 212 10^3/uL (150-400); RED BLOOD CELL COUNT 5.06 10^6/uL (4.40-6.38)
[2016-10-20 06:30] LABS: RED CELL DISTRIBUTION WIDTH 20.2 % (11.5-15.2)
[2016-10-20 06:44] LABS: ALANINE AMINOTRANSFERASE 72 IU/L (21-72); ALBUMIN 4.8 g/dL (3.5-5.0); ALKALINE PHOSPHATASE 210 IU/L (38-126); ANION GAP 25 mEq/L (8-16); ASPARTATE AMINOTRANSFERASE 44 IU/L (17-59); BILIRUBIN,TOTAL 2.1 mg/dL (0.1-1.4); CALCIUM 10.1 mg/dL (8.5-10.4); CARBON DIOXIDE 15 mEq/l (22-31); CHLORIDE 101 mEq/L (97-110); CREATININE 1.8 mg/dL (0.7-1.3); GLOMERULAR FILTRATION RATE 36; GLUCOSE 170 mg/dL (70-100); MAGNESIUM 2.3 mg/dL (1.6-2.3); SODIUM 141 mEq/L (134-144); TOTAL PROTEIN 8.2 g/dL (6.3-8.2)
[2016-10-20 06:49] LABS: INR 1.54 (0.83-1.16); PROTIME(PATIENT) 18.5 SEC (12.0-15.0)
[2016-10-20 06:53] LABS: MACROCYTES 1+; PLATELET ESTIMATE ADEQUATE (ADEQ); POLYCHROMASIA 1+
[2016-10-20] MEDS ORDERED: FUROSEMIDE 40 MG/4 ML VIAL IVP ONE (07:00)
[2016-10-20 07:19] LABS: BILIRUBIN-CONJUGATED 1.1 mg/dL (0.0-0.5)
[2016-10-20] MEDS ORDERED: morphINE 10 MG/0.5 ML UDSYR PO PRN (10:34)
[2016-10-20 11:54] LABS: INR 1.78 (0.83-1.16); PROTIME(PATIENT) 20.8 SEC (12.0-15.0)
[2016-10-20 11:55] LABS: APTT 28.6 SEC (23.0-38.0)
--- NOTE | 2016-10-20 12:16 | HOSPPROG ---
Hospitalist Progress Note Assessment/Plan: 85 yo M w/ CHF, CKD, CAD, CHB s/p PPM and difficult social situation presents to ED with SOB and found to have b/l pleural effusions and lactic acidosis. Plan: 1. Lactic acidosis likely due to heart failure and hypoperfusion. Doubt infection given low PCT/ no leukocytosis/fever/obvious source of infection - monitor off abx - Hold metformin 2. AHRF - Mild, oxygenating well on 2L. Could be due to b/l pleural effusions. Will check b/l LE U/S to look for DVT noting Cr 1.8 and CTPE contraindicated. - Lasix 40 IV x1 -low dose morphine for comfort 3. Pleural effusions - He has had b/l pleural effusions in the past, but seem larger on this admission. Will try to diurese; may need thoracentesis if not resolving with diuresis. 4. CHF - Last TTE with EF of 40%, -thoracentesis - Cardiology consult -echo pending 5. LAISHA on CKD - Discharged with serum creatinine of 1.5 on 10/02. Baseline values prior to this appear to be 1.1-1.3. - FeNa, FeUrea ordered 6. Hx of CAD - With hx of multivessel stenting, most recently in March of 2016. Prescribed DAPT with unclear compliance. 7. CHB s/p PPM 8. Social - Well known to case management. Patient and reportedly live in [place] and seem unable to care for themselves. Patient has cyclical pattern of decompensation after discharge home from SNFs. Diet - NPO Ppx - SCDs Code - Full Dispo - Admit to ICU Subjective: appears sob. not answering questions appropriately Objective: Vital Signs Temp Pulse Resp BP Pulse Ox 35.8 C L 86 13 134/82 H 91 L 10/20/16 11:13 10/20/16 11:13 10/20/16 11:13 10/20/16 11:13 10/20/16 11:13 Laboratory Results 10/20/16 06:15 10/20/16 06:15 10/19/16 10/20/16 10/21/16 05:59 05:59 05:59 Intake Total 500 250 Output Total 100 Balance 400 250 PT 20.8 SEC (12.0-15.0) H 10/20/16 11:33 INR 1.78 (0.83-1.16) H 10/20/16 11:33 - Physical Exam Constitutional: no apparent distress, appears nourished, not in pain Cardiovascular: regular rate and rhythym, no murmur, rub, or gallop, JVD Respiratory: reduced air movement, respiratory distress, No expiratory wheeze, No inspiratory crackles Gastrointestinal: normoactive bowel sounds, soft, non-tender abdomen, no palpable masses ICD10 Worksheet Patient Problems: Problems Problem Status Onset Acute exacerbation of congestive heart failure Acute TIA (transient ischemic attack) Acute Elevated troponin Acute Diabetes mellitus with hyperglycemia Acute Shortness of breath Acute Acute renal failure Acute Pleural effusion Acute Chronic Disease Mgmt/Transitional Care Acute Chest pain Acute Near syncope Acute Elevated troponin Acute Palliative care encounter Acute Chronic Disease Mgmt/Transitoinal Care Acute Coronary artery disease Acute Essential (primary) hypertension Acute Pacemaker Acute Hyperlipidemia Acute S/P coronary artery stent placement Acute Weakness Acute CHF (congestive heart failure) Acute
[2016-10-20] MEDS ORDERED: LIDOCAINE 1% 300 MG/30 ML SDV ONE (12:22)
--- NOTE | 2016-10-20 14:08 | WOCRNPDOC ---
WOCRN Advanced Assessment Note - Skin Integrity Problem, Advanced Assess Coccyx Dressing Type: Allevyn Life Dressing Description: Soiled (w/ stool) Exudate Amount: None Exudate Characteristic(s): None Integumentary Issue Intervention: Dressing Changed Shanna Wound Tissue: Blanching, Erythema Shanna Wound Swelling: None Wound Bed Color: Red Site Odor: None Site Measurement - Head-to-Toe Length X Width X Depth (cm): 0.3cmx0.4cmx0.1cm Pressure Injury Stage: Stage 2 Pressure Injury Present on Admit: Yes (documented by nursing; hospitalist notified) Skin Integrity Problem Comment: Small, circular area of partial-thickness tissue loss noted over coccyx, consistent in appearance w/ stage 2 pressure injury. No necrosis and no apparent swelling. Blanching erythema observed throughout shanna-wound tissue. Pressure-relieving precautions implemented, including a protective dressing. Report given to math and science instructor Katie. Wound care will follow up with patient on Friday, 10/25.
--- NOTE | 2016-10-20 15:21 | GCON ---
[f rep st] CONSULTATION [facility] CHIEF CONSULTATION REASON FOR ADMISSION: Congestive heart failure, respiratory failure. HISTORY OF PRESENT ILLNESS: The patient is an 85-year-old Indonesian male who does not speak Indonesian . He has an extensive past medical history including diabetes, coronary artery disease, congestive heart failure, pulmonary hypertension, mitral regurgitation, chronic pleural effusions, chronically elevated troponin, and malnutrition. He was last seen in September of this year for similar problems. T his is his 6th admission this year for congestive heart failure. He has spent time in a nursing olena e and did well. Currently, he is resting comfortably on 2 L of oxygen. PAST MEDICAL HISTORY: Again significant for coronary artery disease, diabetes, congestive heart jesus lure with ejection fraction 45%, mitral regurgitation, pleural effusions, malnutrition, chronically elevated troponins, likely dementia, mitral regurgitation, and pacemaker. ALLERGIES: Benadryl and procedural sedation. SOCIAL HISTORY: He lives at home with his currently. Apparently, the home situation is tenuou s at best. CURRENT MEDICATIONS: Include Plavix, Lasix, Synthroid, Zestril, nitroglycerin, simvastatin, Glucoph age, aspirin, and Remeron. PHYSICAL EXAMINATION: VITAL SIGNS: Blood pressure is 134/82, pulse 86, respirations 13, temperatur e 35.8, oxygen saturation 91% on 2 L. GENERAL: He is a thin, malnourished, 85-year-old male who is currently resting comfortably on nasal cannula oxygen. HEENT: Eyes: PERRL. EOMI. He has bilate ral arcus senilis present. Throat exam is deferred. NECK: Supple. Neck veins are mildly elevated . HEART: Regular rate and rhythm with a 2/6 systolic murmur left sternal border without radiation. LUNGS: Diminished breath sounds. Bibasilar crackles. ABDOMEN: Soft, nontender. Bowel sounds a re present. EXTREMITIES: 2+ lower extremity edema. LABORATORY: White count is 9.8, hemoglobin 14, hematocrit 45, platelet count 212. INR is 1.54. So dium 141, potassium 5.0, chloride 101, CO2 is 15, BUN 51, creatinine 1.8, glucose is 170. BNP is ma rkedly elevated at 13,600. TSH is 9.9. Urinalysis: A pH is 5, specific gravity 1.016, 2+ protein. Arterial blood gas: A pH of 7.39, pCO2 of 22, pO2 of 85, bicarb 14, oxygen saturation 95%. This is on supplemental oxygen. VBG lactate is 6. Chest x-ray: Reviewed by myself, shows cardiomegaly. There are bilateral pleural effusions and some evidence of pulmonary edema. IMPRESSION: 1. Congestive heart failure. This is likely worsened. 2. Acidosis, likely secondary to poor perfusion. 3. Renal failure. 4. Diabetes. 5. Coronary artery disease. 6. Pulmonary hypertension. 7. Likely dementia. 8. Severe malnutrition. 9. Coronary artery disease. RECOMMENDATION: 1. Agree with diuresis. 2. Await for echo report. 3. DVT and PE prophylaxis. 4. Stress ulcer prophylaxis. 5. Adequate nutrition. /[id number]/MODL
--- NOTE | 2016-10-20 16:02 | ECHO ---
[id number] + + [address] : : [place] [address] : : [phone] + + Adult Echocardiographic Report + ---------+ :Name: CHIOMA BOWENS Mehnaz Date: 10/20/2016 07:48 AM : : Hospital Admission Number: [id number] : :: 1930 Gender: Male Height: 68 in : :Age: 85 yrs Race: WH Weight: 129 lb : :Reason For Study: CHF/pleural effusion : : BSA: 1. 7 meters2: :History: Pacer : + ---------+ MMode/2D Measurements \T\ Calculations IVSd: 1.3 cm LVIDd: 4.2 cm FS: 4.9 % Ao root diam: LVPWd: 0.91 cm LVIDs: 4.0 cm EDV(Teich): 79.5 ml 3.3 cm ESV(Teich): 70.5 ml LA dimension: EF(Teich): 11.3 % 4.7 cm LVOT diam: 2.0 cmLVLd ap4: 7.1 cm SV(MOD-sp4): LVOT area: EDV(MOD-sp4): 10.0 ml 3.0 cm2 54.0 ml LVLs ap4: 6.6 cm ESV(MOD-sp4): 44.0 ml EF(MOD-sp4): 18.5 % Normal Measurement Values: + + :LVIDd (3.5-5.7cm) IVSd (0.6-1.1cm) LVPWd (0.6-1.1cm) Aortic Root (2.0-3.7cm)Left Atrium (1.5-4.0cm): :LV Vol(d) (76-115ml) LV Vol(s) (29-48ml) Ejec Fraction (50-65%)PV Epifanio (0.6- 1.2m/s) TV Epifanio (0.4-1.0m/s) : :MV E Epifanio (0.8-1.0m/s)MV A Epifanio (0.3-1.0m/s)LVOT Epifanio (0.7-1.2m/s) Asc Ao Epifanio ( 0.9-1.8m/s) : + + Doppler Measurements \T\ Calculations MV E max epifanio: 96.3 cm/sec Ao V2 max: 72.4 cm/sec TR max epifanio: 290.5 cm/sec Ao max P.1 mmHg TR max P.8 mmHg RAP systole: 10.0 mmHg RVSP(TR): 43.8 mmHg Left Ventricle The left ventricle is normal in size. There is mild concentric left ventricular hypertrophy. Ejection Fraction = 15-20%. Left ventricular systolic function is moderate to severely reduced. The left ventricular ejection fraction is calculated at 11.3 %. Right Ventricle The right ventricle is normal in size and function. There is a pacemaker lead in the right ventricle. Atria The left atrium is moderate to severely dilated. The right atrium is moderately dilated. Mitral Valve There is severe mitral annular calcification. There is moderate mitral regurgitation. Tricuspid Valve Normal tricuspid valve. There is moderate to severe tricuspid regurgitation. Right ventricular systolic pressure is 44mmHg. There is Doppler evidence for mild pulmonary hypertension. Aortic Valve The aortic valve is trileaflet. The aortic valve opens well. Mild aortic calcification. There is no aortic stenosis. Mild aortic regurgitation. Pulmonic Valve The pulmonic valve is not well visualized. There is no pulmonic valvular regurgitation. Great Vessels The aortic root is normal size. Pericardium/Pleural trivial pericardial effusion. Left pleural effusion. Conclusion A complete two-dimensional transthoracic echocardiogram was performed (2D, M-mode, Doppler and color flow Doppler). Technically difficult study - pt with intermediate spells with tachynea. The patient has a dilated IVC. (1) Left ventricular systolic ejection fraction was severely reduced (10- 15%) - severe global hypokinesis (2) Mild concentric left ventricular hypertrophy (3) Diastolic dysfunction was present (4) Normal right ventricular size with mild reduction in RV systolic function - there was a pacemaker lead to the RV chamber (5) Moderate to severe left atrial dilation with moderate dilation noted to the right atrium (6) Moderate mitral regurgitation with moderate annular calcification (7) Trileaflet aortic valve with mild sclerosis, but no stenosis. Mild insufficiency was noted (8) Moderate to severe tricuspid regurgitation - RVSP was estimated to be 40-45 mm Hg (9) Poor visualization of the pulmonic valve (10) There was a large left pleural effusion (11) In comparison to prior echocardiogram from 07-11-16, there has been a substantial drop in LV systolic function noted (from 40% in past to 10-15% at present) Final Reading Physician: Waqas Garza signed on 10/20/2016 04:00 PM Ordering Physician: Alfonso Garcia Performed By: Kate Walden, PARISACS
--- NOTE | 2016-10-20 17:16 | PDCARPN ---
Cardiology Progress Note Chief Complaint: CHF exacerbation Assessment/Plan: Assessment: Patient is an 85 y/o male with history of CHF (EF in recent past was 45%), pHTN , CAD, DM, MR (mod to severe), CRI, and CHB s/p PPM, who presents back to [facility] after what appears to be failure to thrive with concomitant CHF exacerbation. Attempt to speak with patient and was relatively unsuccessful. Outpatient notes were not available ([facility] patient), but all inpatient stays were accessable. Echocardiogram today with severe, new, reduction in left ventricular systolic function (from 45% to 10-15%). I called the patient's daughter to speak about the patient, but found that the better alternative was to discuss this in person. Plan: Full consultation will be drafted tomorrow. I want to speak with the patient, his , and their daughter (who speaks can assist with translation and explanation). I have concerns given the patient's malnourished state coupled with questionable compliance on medical therapy (given some documentation that has been noted). There appears to be progression of valvular pathology as a possible contributor to the current admission. Poor compliance with DAPT given history of CAD with PCI raises concerns about revisitation of progressive CAD. Minor troponin elevation was noted (0.2 ng/mL), however, there is also underlying renal insufficiency, which could be etiology for the minor troponin elevation appreciated. Subjective: Patient's chief complaint when being seen appears to be the need to use bathroom Reviewed/Discussed With: family, multidisciplinary team Objective: Vital Signs (8 Hrs) Temp Pulse Resp BP Pulse Ox 10/20/16 15:04 36.3 C 95 13 116/74 98 10/20/16 11:13 35.8 C L 86 13 134/82 H 91 L Intake/Output (24 Hrs) 10/19/16 10/20/16 10/21/16 05:59 05:59 05:59 Intake Total 500 250 Output Total 100 Balance 400 250 Intake: IV Infused (ml) 500 250 Vancomycin HCl/Normal 250 Saline 250 ml @ 250 mls/ hr IV ONCE ONE Rx#: [id number] Output: Urine (ml) 100 Other: Weight 58.9 kg 58.9 kg Number of Stools Catheter 1 Result Diagrams: 10/20/16 06:15 10/20/16 06:15 EKG: Sinus tachycardia with intermittent ventricular pacing Echocardiogram: EF of 15% with mod MR, mod to severe TR - Physical Exam Constitutional: cachectic Eyes: PERRL Ears, Nose, Mouth, Throat: moist mucous membranes Cardiovascular: regular rate and rhythm (tachycardia), systolic murmur Peripheral Pulses: 2+: dorsalis-pedis (R), dorsalis-pedis (L) Respiratory: reduced air movement Gastrointestinal: normoactive bowel sounds Skin: no edema Musculoskeletal: no muscular tenderness Neurologic: CN II-XII grossly intact Psychiatric: other (confused, but difficult to know if there is a language barrier) ICD10 Worksheet Patient Problems: Problems Problem Status Onset CHF (congestive heart failure) Acute Pleural effusion Acute Acute exacerbation of congestive heart failure Acute Acute renal failure Acute Chest pain Acute Chronic Disease Mgmt/Transitional Care Acute Chronic Disease Mgmt/Transitoinal Care Acute Coronary artery disease Acute Diabetes mellitus with hyperglycemia Acute Elevated troponin Acute Elevated troponin Acute Essential (primary) hypertension Acute Hyperlipidemia Acute Near syncope Acute Pacemaker Acute Palliative care encounter Acute S/P coronary artery stent placement Acute Shortness of breath Acute TIA (transient ischemic attack) Acute Weakness Acute
[2016-10-20] MEDS ORDERED: NON-FORMULARY NEW DRUG (Mirtazapine [Remeron] 7.5 MG) PO SCH (21:00)
[2016-10-20] MEDS: MIRTAZAPINE 15 MG TAB PO SCH (21:05)
[2016-10-20] MEDS: TAMSULOSIN HCL 0.4 MG CAP PO SCH (21:05)
[2016-10-21] MEDS ORDERED: LORazepam 0.5 MG TAB PO ONE (00:51)
[2016-10-21] MEDS ORDERED: LORazepam 2 MG/ML INJ IVP ONE (01:06)
[2016-10-21] MEDS: LEVOTHYROXINE 50 MCG TAB PO SCH (04:48)
--- NOTE | 2016-10-21 11:09 | HOSPPROG ---
Hospitalist Progress Note Assessment/Plan: 85 yo M w/ CHF, CKD, CAD, CHB s/p PPM and difficult social situation presents to ED with SOB and found to have b/l pleural effusions and lactic acidosis. Plan: 1. Lactic acidosis likely due to heart failure and hypoperfusion. Doubt infection given low PCT/ no leukocytosis/fever/obvious source of infection - monitor off abx - Hold metformin 2. acute hypoxemic respiratory failure due to acute on chronic systolic heart failure with episodes of apnea ( improved oxygenation status post thoracentesis yesterday) - Mild, oxygenating well on 2L. Could be due to b/l pleural effusions. Will check b/l LE U/S to look for DVT noting Cr 1.8 and CTPE contraindicated. -low dose morphine for comfort 3. Pleural effusions - He has had b/l pleural effusions in the past, but seem larger on this admission. status post thoracentesis with 1.2 L of fluid removed from the right pleural space. chest x-ray done today shows improved effusion without signs of pneumothorax 4. acute on chronic systolic congestive heart failure with worsening ejection fraction down to 10% - Cardiology consult was reviewed and appreciated 5. LAISHA on CKD - Discharged with serum creatinine of 1.5 on 10/02. Baseline values prior to this appear to be 1.1-1.3. 6. Hx of CAD - With hx of multivessel stenting, most recently in March of 2016. Prescribed DAPT with unclear compliance. 7. CHB s/p PPM 8. Social - Well known to case management. Patient and reportedly live in [place] and seem unable to care for themselves. Patient has cyclical pattern of decompensation after discharge home from SNFs. l will requesting ethics consult since neither the patient nor his appear to be decisional. 9. acute encephalopathy possibly due 2 delirium in the setting of his multiple medical problems - will DC Ativan Diet - NPO Ppx - SCDs Code - Full Dispo - Change to step-down status Subjective: patient is unarousable and does not respond to questions Objective: Vital Signs Temp Pulse Resp BP Pulse Ox 36.7 C 88 16 108/66 100 10/21/16 08:12 10/21/16 08:12 10/21/16 08:12 10/21/16 08:12 10/21/16 08:12 Laboratory Results 10/20/16 06:15 10/20/16 06:15 10/20/16 10/21/16 10/22/16 05:59 05:59 05:59 Intake Total 500 500 Output Total 100 925 Balance 400 -425 PT 20.8 SEC (12.0-15.0) H 10/20/16 11:33 INR 1.78 (0.83-1.16) H 10/20/16 11:33 - Physical Exam Constitutional: chronically ill appearing Cardiovascular: regular rate and rhythym, no murmur, rub, or gallop Respiratory: no respiratory distress, no rales or rhonchi, clear to auscultation , reduced air movement, other ( episodes of apnea) Gastrointestinal: normoactive bowel sounds, soft, non-tender abdomen, no palpable masses, No guarding, No rebound Neurologic: other ( alert and oriented times 0) Psychiatric: encephalopathic ICD10 Worksheet Patient Problems: Problems Problem Status Onset Acute exacerbation of congestive heart failure Acute TIA (transient ischemic attack) Acute Elevated troponin Acute Diabetes mellitus with hyperglycemia Acute Shortness of breath Acute Acute renal failure Acute Pleural effusion Acute Chronic Disease Mgmt/Transitional Care Acute Chest pain Acute Near syncope Acute Elevated troponin Acute Palliative care encounter Acute Chronic Disease Mgmt/Transitoinal Care Acute Coronary artery disease Acute Essential (primary) hypertension Acute Pacemaker Acute Hyperlipidemia Acute S/P coronary artery stent placement Acute Weakness Acute CHF (congestive heart failure) Acute
[2016-10-21] MEDS: FUROSEMIDE 40 MG TAB PO SCH (13:39)
[2016-10-21] MEDS: ASPIRIN 81 MG CHEWABLE TAB PO SCH (13:39)
[2016-10-21] MEDS: LISINOPRIL 5 MG TAB PO SCH (13:39)
[2016-10-21] MEDS: CLOPIDOGREL BISULFATE 75 MG TAB PO SCH (13:39)
[2016-10-21] MEDS: NEBIVOLOL HCL 5 MG TAB PO SCH (13:39)
--- NOTE | 2016-10-21 13:48 | PDINTPN ---
Manufacturing Business Analyst Progress Note Assessment/Plan: Assessment: Acute on chronic systolic CHF: Previously well-controlled with medications, but non-compliant, resulting in recurrent admissions. Now with markedly lower EF (45 %->10%), more refractory to Rx and developing renal insufficiency and NAG+ lactic acidosis. Lactic acidosis: ? due to diffuse hypoperfusion LAISHA: Cr going up, urine output dropping off. Suspect prerenal Dementia Pj-pagan respiration: Due to end-stage CHF. Sats nadiring in upper 80s on supplemental oxygen. Pulmonary HTN: Likely due to L CHF. Hypothyriod Plan: I had a long talk with the patient's via a food services coordinator in the presence of the patient, who was sleeping. I expressed my belief that he was dying from heart failure, with little chance of long-term survival, and recommended no-cor status. She wishes to continue full-cor status in the hope that he will survive. I informed her that he did not currently need life support, but if it came to that point, CPR and mechanical ventilation would be started unless it had reached the point of futility. Follow Cr, met panel Started levothyroxine Continue supplemental oxygen 10/21/16 13:58 Subjective: Sleeping, responds weakly to voice, denies dyspnea. Objective: Vital Signs Temp Pulse Resp BP Pulse Ox 36.9 C 83 16 108/75 99 10/21/16 12:01 10/21/16 12:01 10/21/16 12:01 10/21/16 12:01 10/21/16 12:01 Laboratory Results 10/20/16 06:15 10/20/16 06:15 10/20/16 10/21/16 10/22/16 05:59 05:59 05:59 Intake Total 500 500 Output Total 100 925 Balance 400 -425 PT 20.8 SEC (12.0-15.0) H 10/20/16 11:33 INR 1.78 (0.83-1.16) H 10/20/16 11:33 CXR: Stable cardiomegaly. Images reviewed. Laboratory Tests 10/01/16 10/02/16 10/20/16 23:58 06:04 06:15 VBG Lactic Acid 7.0 H Troponin I 0.263 H NT-Pro-B Natriuret Pep 38277 H TSH 10/20/16 06:15 VBG Lactic Acid Troponin I NT-Pro-B Natriuret Pep TSH 9.930 H Physical Exam - Physical Exam General Appearance: no apparent distress, No alert EENT: normal ENT inspection Neck: normal inspection Respiratory: lungs clear, normal breath sounds Cardiac/Chest: regular rate, rhythm, No edema Abdomen: non-tender, soft Skin: normal color, warm/dry Extremities: normal inspection Neuro/Psych: No alert, No normal mood/affect, No oriented x 3 ICD10 Worksheet Patient Problems: Problems Problem Status Onset CHF (congestive heart failure) Acute Pleural effusion Acute Acute exacerbation of congestive heart failure Acute Acute renal failure Acute Chest pain Acute Chronic Disease Mgmt/Transitional Care Acute Chronic Disease Mgmt/Transitoinal Care Acute Coronary artery disease Acute Diabetes mellitus with hyperglycemia Acute Elevated troponin Acute Elevated troponin Acute Essential (primary) hypertension Acute Hyperlipidemia Acute Near syncope Acute Pacemaker Acute Palliative care encounter Acute S/P coronary artery stent placement Acute Shortness of breath Acute TIA (transient ischemic attack) Acute Weakness Acute
--- NOTE | 2016-10-21 16:01 | PDCARPN ---
Cardiology Progress Note Chief Complaint: No voiced complaints Assessment/Plan: Assessment: 10-21-16 Discussion with daughter over the phone yesterday, and request for her to come into the hospital to have discussions about her father, the patient. Today, this visit did not occur. There has been progression of the disease process involving cardiomyopathy secondary to uncertain etiology - progressive valve pathology, poor compliance with recommended medical therapy, or "other". The patient was not communicative with the medical providers today, and attempts to further discuss the current situation with the patient's , present in the room, were unsuccessful. There is very little that cardiology can offer this patient at present. Surgery is not a viable option for this patient at this time, in this current condition. An ethics consult has been requested to assist with determination of 's ability to render appropriate care of the patient given that she is the POA of the patient. Discussion with the medical team today suggests that many of these consults were also requested and rendered with the last hospitalization. Cardiology does not feel that subjecting the patient to invasive testing will provide any further benefit for treatment or care of this patient. 10-20-16 Patient is an 85 y/o male with history of CHF (EF in recent past was 45%), pHTN , CAD, DM, MR (mod to severe), CRI, and CHB s/p PPM, who presents back to [facility] after what appears to be failure to thrive with concomitant CHF exacerbation. Attempt to speak with patient and was relatively unsuccessful. Outpatient notes were not available ([facility] patient), but all inpatient stays were accessable. Echocardiogram today with severe, new, reduction in left ventricular systolic function (from 45% to 10-15%). I called the patient's daughter to speak about the patient, but found that the better alternative was to discuss this in person. Plan: Full consultation will be drafted tomorrow. I want to speak with the patient, his , and their daughter (who speaks can assist with translation and explanation). I have concerns given the patient's malnourished state coupled with questionable compliance on medical therapy (given some documentation that has been noted). There appears to be progression of valvular pathology as a possible contributor to the current admission. Poor compliance with DAPT given history of CAD with PCI raises concerns about revisitation of progressive CAD. Minor troponin elevation was noted (0.2 ng/mL), however, there is also underlying renal insufficiency, which could be etiology for the minor troponin elevation appreciated. Subjective: No complaints Reviewed/Discussed With: family, hospitalist, multidisciplinary team Objective: Vital Signs (8 Hrs) Temp Pulse Resp BP Pulse Ox 10/21/16 12:01 36.9 C 83 16 108/75 99 10/21/16 08:12 36.7 C 88 16 108/66 100 Intake/Output (24 Hrs) 10/20/16 10/21/16 10/22/16 05:59 05:59 05:59 Intake Total 500 500 Output Total 100 925 Balance 400 -425 Intake: IV Infused (ml) 500 500 Vancomycin HCl/Normal 500 Saline 250 ml @ 250 mls/ hr IV ONCE ONE Rx#: [id number] Output: Urine (ml) 100 925 Catheter 925 Other: Weight 58.9 kg 58.9 kg Number of Stools Catheter 1 Result Diagrams: 10/20/16 06:15 10/20/16 06:15 - Physical Exam Constitutional: cachectic Eyes: PERRL Ears, Nose, Mouth, Throat: moist mucous membranes Cardiovascular: regular rate and rhythm, systolic murmur, other (tachycardia) Peripheral Pulses: 2+: dorsalis-pedis (R), dorsalis-pedis (L) Respiratory: clear to auscultate bilat Skin: no edema Psychiatric: encephalopathic, flat affect ICD10 Worksheet Patient Problems: Problems Problem Status Onset CHF (congestive heart failure) Acute Pleural effusion Acute Acute exacerbation of congestive heart failure Acute Acute renal failure Acute Chest pain Acute Chronic Disease Mgmt/Transitional Care Acute Chronic Disease Mgmt/Transitoinal Care Acute Coronary artery disease Acute Diabetes mellitus with hyperglycemia Acute Elevated troponin Acute Elevated troponin Acute Essential (primary) hypertension Acute Hyperlipidemia Acute Near syncope Acute Pacemaker Acute Palliative care encounter Acute S/P coronary artery stent placement Acute Shortness of breath Acute TIA (transient ischemic attack) Acute Weakness Acute
--- NOTE | 2016-10-21 16:56 | PDPCPN ---
Palliative Care Progress Note Assessment/Plan: Referring provider: Dr Newberry Reason for consult: Complex medical decision making Symptom control HPI: William Wallace is a 85 yo male with PMH CHF, DM, CAD, pul HTN, BPH, CKD, and mild dementia admitted to the hospital with SOB. Found to have lactic acidosis with bilateral pleural effusions. This is his 6th time in the hospital this year and very well known to palliative care. Repeat echo with new decrease in EF from 40% to 10% now. Hx of non compliance with malnutrition and concerns about safety at home. an APS report was called by myself 2 weeks ago to report hx of non compliance and concerns of the not being able to properly care for William at home. 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 He has been followed by [facility] who suggested hospice care last week but refused. Hx has shown he does very well in a structured environment (rehab/SNF) with manageable chronic medical problems but when he is at home this is not maintained. His goals have always been to be at home as he also gets very depressed when he is at SNF/rehab. Spoke with Oneyda at the bedside along with Dr Chávez. Oneyda heard Dr Chávez give his medical status update and discussion of no CPR. Still still wishes for Full code because "we have to try". She could not articulate what her hope or expected outcome would be other than he would be alive. She has high hopes for the medical team to improve William's condition and live much longer. Spoke with daughter Dominga over the phone this afternoon. She was unable to come to the hospital today as she was up all night long feeling sick and does not have proper baby sitting coverage for her autistic son. We discussed the meeting early in the afternoon and how her father's heart was very weak and unable to be fixed at this moment. Discussed CPR with unlikely to be of benefit in this situation. She states she does not feel her mother can make these decisions and if it were up to her she would rather allow for a natural with no artificial means including intubation and CPR. Assessment: Physical: - Dyspnea: severe at times - morphine PRN - oxygen as needed - weakness - nursing support - constipation - at risk if on opiates - dulcolax supp PRN Emotional/psychological: Confusion on/off Advanced Care Planning: Is patient decisional?: no Code Status: Full MD POA: Oneyda is MDPKIRA but not sure this is in the best interest of the patient. Plan: Continue to work with case management on APS involvement and support the family regardless of outcome. Subjective: unable to obtain Objective: Social History: to Oneyda, born in [place]. 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 and him live alone in a multi story house. There daughter Dominga is involved. Medication list reviewed ROS: General: fatigue, weakness, weight loss ENT: negative Resp: dyspnea GI: poor appetite : negative MS: negative Skin: sacral ulcer Neuro: negative Psych: confusion Functional assessment: PPS:30% Functional status: dependent on ADLs, IADLs Vital Signs Temp Pulse Resp BP Pulse Ox 37.0 C 89 16 115/71 98 10/21/16 15:56 10/21/16 15:56 10/21/16 15:56 10/21/16 15:56 10/21/16 15:56 Laboratory Results 10/20/16 06:15 10/20/16 06:15 10/20/16 10/21/16 10/22/16 05:59 05:59 05:59 Intake Total 500 500 Output Total 100 925 Balance 400 -425 PT 20.8 SEC (12.0-15.0) H 10/20/16 11:33 INR 1.78 (0.83-1.16) H 10/20/16 11:33 Physical Exam - Physical Exam General Appearance: mild distress, other (fatigued) Respiratory: No respiratory distress, No accessory muscle use Skin: normal color, warm/dry Extremities: pedal edema Neuro/Psych: other (very fatigued, sleeping, opens eyes on occasion) ICD10 Worksheet Patient Problems: Problems Problem Status Onset CHF (congestive heart failure) Acute Pleural effusion Acute Acute exacerbation of congestive heart failure Acute Acute renal failure Acute Chest pain Acute Chronic Disease Mgmt/Transitional Care Acute Chronic Disease Mgmt/Transitoinal Care Acute Coronary artery disease Acute Diabetes mellitus with hyperglycemia Acute Elevated troponin Acute Elevated troponin Acute Essential (primary) hypertension Acute Hyperlipidemia Acute Near syncope Acute Pacemaker Acute Palliative care encounter Acute S/P coronary artery stent placement Acute Shortness of breath Acute TIA (transient ischemic attack) Acute Weakness Acute
[2016-10-21] MEDS: MIRTAZAPINE 15 MG TAB PO SCH (20:34)
[2016-10-21] MEDS: TAMSULOSIN HCL 0.4 MG CAP PO SCH (20:34)
[2016-10-22] MEDS: LEVOTHYROXINE 50 MCG TAB PO SCH (02:52)
--- NOTE | 2016-10-22 08:39 | CPEKG ---
Heart Rate: 112 RR Interval: 536 P-R Interval: 113 QRSD Interval: 132 QT Interval: 380 QTC Interval: 519 P [place]: 80 QRS [place]: 99 T Wave [place]: -84 EKG Severity - ABNORMAL ECG - EKG Impression: ATRIAL-SENSED VENTRICULAR-PACED COMPLEXES EKG Impression: BORDERLINE ST DEPRESSION, LATERAL LEADS Electronically Signed By: Song Juares 22-Oct-2016 17:58:56
[2016-10-22] MEDS: NEBIVOLOL HCL 5 MG TAB PO SCH ×2 (09:54→10:54)
[2016-10-22] MEDS: FUROSEMIDE 40 MG TAB PO SCH ×2 (09:54→10:55)
[2016-10-22] MEDS: CLOPIDOGREL BISULFATE 75 MG TAB PO SCH ×2 (09:54→10:55)
[2016-10-22] MEDS: LISINOPRIL 5 MG TAB PO SCH ×2 (09:54→10:54)
[2016-10-22] MEDS: ASPIRIN 81 MG CHEWABLE TAB PO SCH ×2 (09:54→10:54)
[2016-10-22] MEDS ORDERED: NS 1,000 ML IV SCH (10:30)
--- NOTE | 2016-10-22 11:12 | PDINTPN ---
Supervisor Yard Progress Note Assessment/Plan: Assessment: Acute on chronic systolic CHF: Previously well-controlled with medications, but non-compliant, resulting in recurrent admissions. Now with markedly lower EF (45 %->10%), more refractory to Rx and developing renal insufficiency and NAG+ lactic acidosis. Lactic acidosis: ? due to diffuse hypoperfusion LAISHA: Cr going up, urine output dropping off. Suspect prerenal Dementia Pj-pagan respiration: Due to end-stage CHF. Sats nadiring in upper 80s on supplemental oxygen. Pulmonary HTN: Likely due to L CHF. Hypothyriod Nutrition: Poor for the last few days, but better this morning. Plan: On 10/21 I had a long talk with the patient's via a fishing line winding machine operator in the presence of the patient, who was sleeping. I expressed my belief that he was dying from heart failure, with little chance of long-term survival, and recommended no-cor status. She wishes to continue full-cor status in the hope that he will survive. I informed her that he did not currently need life support , but if it came to that point, CPR and mechanical ventilation would be started unless it had reached the point of futility. If he is unable to adequately take PO safely, he has a signed MOST form refusing TF, even temporarily. He could take PO for comfort even if aspiration risk is increased if that is his and/or his 's wishes. Follow Cr, met panel Continue levothyroxine Continue supplemental oxygen Pt's requests that mariano be seen by Dr. Dennis, will try to arrange. 10/21/16 13:58 10/22/16 11:09 Subjective: More alert, eating some. Denies dyspnea. Objective: Vital Signs Temp Pulse Resp BP Pulse Ox 36.4 C 115 H 28 H 151/88 H 99 10/22/16 07:38 10/22/16 07:38 10/22/16 07:38 10/22/16 07:38 10/22/16 07:38 Laboratory Results 10/20/16 06:15 10/20/16 06:15 10/21/16 10/22/16 10/23/16 05:59 05:59 05:59 Intake Total 500 Output Total 925 700 Balance -425 -700 PT 20.8 SEC (12.0-15.0) H 10/20/16 11:33 INR 1.78 (0.83-1.16) H 10/20/16 11:33 Physical Exam - Physical Exam General Appearance: alert, no apparent distress EENT: normal ENT inspection Neck: normal inspection Respiratory: lungs clear, normal breath sounds Cardiac/Chest: regular rate, rhythm, No edema Abdomen: normal bowel sounds, non-tender, soft Skin: normal color, warm/dry Extremities: normal inspection Neuro/Psych: alert, normal mood/affect, oriented x 3 ICD10 Worksheet Patient Problems: Problems Problem Status Onset CHF (congestive heart failure) Acute Pleural effusion Acute Acute exacerbation of congestive heart failure Acute Acute renal failure Acute Chest pain Acute Chronic Disease Mgmt/Transitional Care Acute Chronic Disease Mgmt/Transitoinal Care Acute Coronary artery disease Acute Diabetes mellitus with hyperglycemia Acute Elevated troponin Acute Elevated troponin Acute Essential (primary) hypertension Acute Hyperlipidemia Acute Near syncope Acute Pacemaker Acute Palliative care encounter Acute S/P coronary artery stent placement Acute Shortness of breath Acute TIA (transient ischemic attack) Acute Weakness Acute
--- NOTE | 2016-10-22 12:43 | HOSPPROG ---
Hospitalist Progress Note Assessment/Plan: 85 yo M w/ CHF, CKD, CAD, CHB s/p PPM and difficult social situation presents to ED with SOB and found to have b/l pleural effusions and lactic acidosis. Plan: 1. Lactic acidosis likely due to heart failure and hypoperfusion. Doubt infection given low PCT/ no leukocytosis/fever/obvious source of infection - monitor off abx - Hold metformin 2. acute hypoxemic respiratory failure due to acute on chronic systolic heart failure with episodes of apnea (improved oxygenation s/p thoracentesis 10/20) -low dose morphine for comfort 3. Pleural effusions - He has had b/l pleural effusions in the past, but seem larger on this admission. status post thoracentesis with 1.2 L of fluid removed from the right pleural space. chest x-ray done today shows improved effusion without signs of pneumothorax 4. acute on chronic systolic congestive heart failure with worsening ejection fraction down to 10% - Cardiology consult was reviewed and appreciated. Pt's would like to speak with Dr. Dennis who plans to visit with them later today 5. LAISHA on CKD - Discharged with serum creatinine of 1.5 on 10/02. Baseline values prior to this appear to be 1.1-1.3. -repeat labs in am 6. Hx of CAD - With hx of multivessel stenting, most recently in March of 2016. Prescribed DAPT with unclear compliance. -trop continues to be elevated. will trend 7. CHB s/p PPM 8. Social - Well known to case management. Patient and reportedly live in [place] and seem unable to care for themselves. Patient has cyclical pattern of decompensation after discharge home from SNFs. l will rquesting ethics consult since neither the patient nor his appear to be decisional. is now agreeable to meet with hospice which has been ordered 9. acute encephalopathy (improving) possibly due to delirium in the setting of his multiple medical problems - will DC Ativan Diet - NPO Ppx - SCDs Code - Full Dispo - change to med surg status Subjective: pt is more awake today. denies acute complaints. wants to eat Objective: Vital Signs Temp Pulse Resp BP Pulse Ox 36.4 C 115 H 28 H 151/88 H 99 10/22/16 07:38 10/22/16 07:38 10/22/16 07:38 10/22/16 07:38 10/22/16 07:38 Laboratory Results 10/20/16 06:15 10/20/16 06:15 10/21/16 10/22/16 10/23/16 05:59 05:59 05:59 Intake Total 500 Output Total 925 700 Balance -425 -700 PT 20.8 SEC (12.0-15.0) H 10/20/16 11:33 INR 1.78 (0.83-1.16) H 10/20/16 11:33 - Physical Exam Constitutional: no apparent distress, not in pain, chronically ill appearing Cardiovascular: regular rate and rhythym, no murmur, rub, or gallop, No edema Respiratory: no respiratory distress, no rales or rhonchi, clear to auscultation , reduced air movement Gastrointestinal: normoactive bowel sounds, soft, non-tender abdomen, no palpable masses, No guarding, No rebound Neurologic: other (appears to only be oriented to person) Psychiatric: poor insight, poor judgement, poor memory ICD10 Worksheet Patient Problems: Problems Problem Status Onset Acute exacerbation of congestive heart failure Acute TIA (transient ischemic attack) Acute Elevated troponin Acute Diabetes mellitus with hyperglycemia Acute Shortness of breath Acute Acute renal failure Acute Pleural effusion Acute Chronic Disease Mgmt/Transitional Care Acute Chest pain Acute Near syncope Acute Elevated troponin Acute Palliative care encounter Acute Chronic Disease Mgmt/Transitoinal Care Acute Coronary artery disease Acute Essential (primary) hypertension Acute Pacemaker Acute Hyperlipidemia Acute S/P coronary artery stent placement Acute Weakness Acute CHF (congestive heart failure) Acute
--- NOTE | 2016-10-22 15:40 | PDPCPN ---
Palliative Care Progress Note Assessment/Plan: HPI: William Wallace is a 85 yo male with PMH CHF, DM, CAD, pul HTN, BPH, CKD, and mild dementia admitted to the hospital with SOB. Found to have lactic acidosis with bilateral pleural effusions. This is his 6th time in the hospital this year and very well known to palliative care. Repeat echo with new decrease in EF from 40% to 10% now. Hx of non compliance with malnutrition and concerns about safety at home. an APS report was called by myself 2 weeks ago to report hx of non compliance and concerns of the not being able to properly care for William at home. Last admission it was agree he go home with [facility], private duty [employer]ILL[employer], and meals on wheels which the was not amenable when they did eventually get home. He has been followed by [facility] who suggested hospice care last week but refused. Hx has shown he does very well in a structured environment (rehab/SNF) with manageable chronic medical problems but when he is at home this is not maintained. His goals have always been to be at home as he also gets very depressed when he is at SNF/rehab. Spoke with Oneyda and her two friends at the bedside this morning. Explained the medical situation of up/down with his clinical status and while he may be more awake today, his heart is very weak and unlikely to recover much in function or treatment. Oneyda stated she had hope of his recovery. We talked about hope can mean different things and can include hope of living whatever time someone has in the most quality but understanding we cannot prolong life and always maintain a good quality of life. Oneyda and friends agreed that William would want to be at home and not be in a hospital or in one. We discussed ways William could be support at home as he is likely near end of life with or without aggressive medical interventions. Discussed hospice care at home. Friends were encouraging of hospice and understand what hospice is. Oneyda agreed to speak with hospice. Also discussed code status which Oneyda stated "even if he lived 3 more days on life support, that would be 3 more days that he lived". Encouraged her to think about William's wishes and overall quality of life. Assessment: Physical: - Dyspnea: severe at times - morphine PRN - oxygen as needed - weakness - nursing support - constipation - at risk if on opiates - dulcolax supp PRN Emotional/psychological: Confusion on/off Advanced Care Planning: Is patient decisional?: no Code Status: Full MD POA: Oneyda is MDPOA but not sure this is in the best interest of the patient. Plan: agreed to meet with hospice care. She is still deciding about code status as she states "even 3 days is 3 days longer that he lives". Subjective: sometimes i have hard breathing Objective: Vital Signs Temp Pulse Resp BP Pulse Ox 36.4 C 115 H 28 H 151/88 H 99 10/22/16 07:38 10/22/16 07:38 10/22/16 07:38 10/22/16 07:38 10/22/16 07:38 Laboratory Results 10/20/16 06:15 10/20/16 06:15 10/21/16 10/22/16 10/23/16 05:59 05:59 05:59 Intake Total 500 Output Total 925 700 Balance -425 -700 PT 20.8 SEC (12.0-15.0) H 10/20/16 11:33 INR 1.78 (0.83-1.16) H 10/20/16 11:33 Physical Exam - Physical Exam General Appearance: alert, no apparent distress Respiratory: No respiratory distress, No accessory muscle use Skin: normal color, warm/dry Extremities: pedal edema Neuro/Psych: alert, disoriented to place, disoriented to time, other (some halluncinating) ICD10 Worksheet Patient Problems: Problems Problem Status Onset CHF (congestive heart failure) Acute Pleural effusion Acute Acute exacerbation of congestive heart failure Acute Acute renal failure Acute Chest pain Acute Chronic Disease Mgmt/Transitional Care Acute Chronic Disease Mgmt/Transitoinal Care Acute Coronary artery disease Acute Diabetes mellitus with hyperglycemia Acute Elevated troponin Acute Elevated troponin Acute Essential (primary) hypertension Acute Hyperlipidemia Acute Near syncope Acute Pacemaker Acute Palliative care encounter Acute S/P coronary artery stent placement Acute Shortness of breath Acute TIA (transient ischemic attack) Acute Weakness Acute
[2016-10-22] MEDS: MIRTAZAPINE 15 MG TAB PO SCH (21:54)
[2016-10-22] MEDS: TAMSULOSIN HCL 0.4 MG CAP PO SCH (21:54)
[2016-10-22] MEDS ORDERED: OLANZapine DISINTEGR 5 MG TAB PO ONE (22:36)
[2016-10-23 05:29] LABS: % IMMATURE GRANULYOCYTES 0.5 % (0.0-1.1); ABSOLUTE IMMATURE GRANULOCYTES 0.05 10^3/uL (0.00-0.10); ADD DIFF? NO; ADD MORPH? NO; ADD SCAN? NO; ATYPICAL LYMPHOCYTE FLAG 0 (0-99); FRAGMENT RBC FLAG 20 (0-99); HEMATOCRIT 45.8 % (40.0-51.0); HEMOGLOBIN 14.2 g/dL (13.7-17.5); LEFT SHIFT FLG 0 (0-99); LIPEMIA HEMOLYSIS FLAG 80 (0-99); MEAN CELL HEMOGLOBIN 28.4 pg (27.9-34.1); MEAN CELL VOLUME 91.6 fL (81.5-99.8); MEAN PLATELET VOLUME 11.8 fL (8.7-11.7); PLATELET CLUMPS FLAG 10 (0-99); PLATELET COUNT 180 10^3/uL (150-400); RED CELL DISTRIBUTION WIDTH 19.9 % (11.5-15.2)
[2016-10-23 05:41] LABS: ANION GAP 19 mEq/L (8-16); CALCIUM 9.7 mg/dL (8.5-10.4); CARBON DIOXIDE 19 mEq/l (22-31); CHLORIDE 110 mEq/L (97-110); CREATININE 1.7 mg/dL (0.7-1.3); GLOMERULAR FILTRATION RATE 39; GLUCOSE 197 mg/dL (70-100); POTASSIUM 4.2 mEq/L (3.5-5.2); SODIUM 148 mEq/L (134-144)
[2016-10-23] MEDS: LEVOTHYROXINE 50 MCG TAB PO SCH (06:26)
[2016-10-23] MEDS: NEBIVOLOL HCL 5 MG TAB PO SCH (09:00)
[2016-10-23] MEDS: ASPIRIN 81 MG CHEWABLE TAB PO SCH (09:00)
[2016-10-23] MEDS: FUROSEMIDE 40 MG TAB PO SCH (09:00)
[2016-10-23] MEDS: CLOPIDOGREL BISULFATE 75 MG TAB PO SCH (09:00)
[2016-10-23] MEDS: LISINOPRIL 5 MG TAB PO SCH (09:07)
[2016-10-23] MEDS: morphINE 10 MG/0.5 ML UDSYR PO PRN ×4 (13:14→20:41)
--- NOTE | 2016-10-23 16:09 | PDDCSUM ---
Discharge Summary Discharge Summary: DISCHARGE DIAGNOSES: -Acute on chronic systolic congestive heart failure -Acute metabolic acidosis due to the above -Acute encephalopathy due to above CONSULTANTS: Dr. Mukesh Damon PROCEDURES: Echocardiogram HOSPITAL COURSE SUMMARY: This patient who has known systolic congestive heart failure and has been severely debilitated and multiply hospitalized in recent months comes in at this time confused. He was found to have severe acute systolic congestive heart failure with ejection fraction newly decreased 10%. He had a metabolic acidosis felt to be due to hypoxemia and heart failure. Cardiology recommended optimal medical management and he was successfully diuresed here and had good improvement in his presenting symptoms and encephalopathy. Due to his severe chronic debilitated state and his severe congestive heart failure and renal failure, palliative care consultation was obtained. After further discussions the patient is family decided on home hospice care. At this time he is transferred to home with hospice care in stable condition but with terminal heart disease. PENDING TEST RESULTS: None MEDICATION CHANGES: Will continue on operable medical management Some oral morphine is added to his list for management of dyspnea and anxiety Greater than 35 minutes bedside and care coordination time today
[2016-10-23] MEDS: TAMSULOSIN HCL 0.4 MG CAP PO SCH (19:17)
[2016-10-23] MEDS: MIRTAZAPINE 15 MG TAB PO SCH (19:18)
[2016-10-24] MEDS: morphINE 10 MG/0.5 ML UDSYR PO PRN (04:21)
[2016-10-24 05:12] VITALS: RESP 20
[2016-10-24] MEDS: LEVOTHYROXINE 50 MCG TAB PO SCH (05:18)
[2016-10-24 07:59] VITALS: BP 101/67; PULSE 81; TEMP 97.8; O2SAT 98
[2016-10-24] MEDS: CLOPIDOGREL BISULFATE 75 MG TAB PO SCH (09:39)
[2016-10-24] MEDS: NEBIVOLOL HCL 5 MG TAB PO SCH (09:39)
[2016-10-24] MEDS: FUROSEMIDE 40 MG TAB PO SCH (09:39)
[2016-10-24] MEDS: LISINOPRIL 5 MG TAB PO SCH (09:39)
[2016-10-24] MEDS: ASPIRIN 81 MG CHEWABLE TAB PO SCH (09:40)
--- NOTE | 2016-10-24 14:23 | PDDCSUM ---
Discharge Summary Discharge Summary: The patient had discharge orders on 10/23 and was set to go home but logistic issues with the ambulance prevented him from being able to discharge on that date. He has had a stable day since then with no change in vital signs, symptoms, or examination. The main change sincej 10/23 is that with further discussion his who is MINGO has decided to change his order to DNR today. He is now ready for discharge and transport is arranged. DISCHARGE DIAGNOSES: -Acute on chronic systolic congestive heart failure -Acute metabolic acidosis due to the above -Acute encephalopathy due to above CONSULTANTS: Dr. Mukesh Damon PROCEDURES: Echocardiogram HOSPITAL COURSE SUMMARY: This patient who has known systolic congestive heart failure and has been severely debilitated and multiply hospitalized in recent months comes in at this time confused. He was found to have severe acute systolic congestive heart failure with ejection fraction newly decreased 10%. He had a metabolic acidosis felt to be due to hypoxemia and heart failure. Cardiology recommended optimal medical management and he was successfully diuresed here and had good improvement in his presenting symptoms and encephalopathy. Due to his severe chronic debilitated state and his severe congestive heart failure and renal failure, palliative care consultation was obtained. After further discussions the patient is family decided on home hospice care. At this time he is transferred to home with hospice care in stable condition but with terminal heart disease. PENDING TEST RESULTS: None MEDICATION CHANGES: Will continue on operable medical management Some oral morphine is added to his list for management of dyspnea and anxiety Greater than 35 minutes bedside and care coordination time today
--- NOTE | 2016-10-24 15:27 | PDIAF ---
- Diagnosis Diagnosis: congestive heart failure/renal failure Code Status: Do Not Resuscitate - Medication Management Discharge Medications: Medications to Continue on Transfer Aspirin [Aspirin 81mg (*)] 81 mg PO DAILY 10/20/16 [Last Taken Unknown] Clopidogrel Bisulfate [Plavix (*)] 75 mg PO DAILY 10/20/16 [Last Taken Unknown] Furosemide [Lasix 40 MG (*)] 40 mg PO DAILY 10/20/16 [Last Taken Unknown] Levothyroxine [Synthroid 50 mcg (*)] 50 mcg PO DAILY06 10/20/16 [Last Taken Unknown] Lisinopril [Zestril 5 mg (*)] 2.5 mg PO DAILY 10/20/16 [Last Taken Unknown] Mirtazapine [Remeron] 7.5 mg PO HS 10/20/16 [Last Taken Unknown] Nebivolol HCl [Bystolic 5 mg (*)] 2.5 mg PO DAILY 10/20/16 [Last Taken Unknown] Nitroglycerin [Nitrostat 0.4 mg (*)] 0.4 mg SL Q5M PRN 10/20/16 [Last Taken Unknown] Tamsulosin HCl [Flomax 0.4 MG (*)] 0.4 mg PO HS 10/20/16 [Last Taken Unknown] morphINE [Roxanol 10 mg/0.5 ml oral soln (*)] 5 - 10 mg PO Q2 PRN #100 ml [Last Taken Unknown] Discharge Medications: Refer to the Discharge Home Medication list for PRN reason. - Orders Services needed: Registered Nurse Diet Recommendation: sodium restricted Diet Texture: Dysphagia 2 - Mechanically Altered - Chopped, Ground, Dysphagia 1 - Pureed, [place] Thick Liquids, Meds Whole in Puree Equipment: hospital bed - Follow Up Care Current Providers and Referrals: Patient,NotPresent [Unknown] - As per Instructions
== END 2016-10-24 15:30 | disposition hospice, home (50) | DRG 291 ==
LOC: EDUNIT# → F2N 04:59
PROVIDERS: ADMIT Student in an Organized Health Care Education/Training Program; ATTEND Student in an Organized Health Care Education/Training Program
PROC: 0W993ZZ Drainage of Right Pleural Cavity, Percutaneous Approach (ICD-10-PCS; principal; 2016-10-20)
DX: I13.0 Hypertensive heart and chronic kidney disease with heart failure and stage 1 through stage 4 chronic kidney disease, or unspecified chronic kidney disease (principal); I50.23 Acute on chronic systolic (congestive) heart failure; G93.49 Other encephalopathy; E87.2 Acidosis; E11.9 Type 2 diabetes mellitus without complications; N18.9 Chronic kidney disease, unspecified; E03.9 Hypothyroidism, unspecified; Z66 Do not resuscitate; Z95.0 Presence of cardiac pacemaker
CPT/HCPCS: 92526-GN; 92610-GN; G8996-GN-CI; G8997-GN-CH; J1940; J2060; J2543; J3370